=== PATIENT | female | born 1935 | race Caucasian/White ===

== ENCOUNTER → 2017-06-26 | Outpatient (CLI) | payer MEDICARE, BC ==
[2014-05-03 22:39] VITALS: BP 135/64
[~2017-06-26] MED LIST: ALPR0.254 PO; ASPI-630 PO; ASPI81TA50 PO; ATEN50TA PO; CEPH-264 PO; CIPR250T30 PO; DIPH25CA58 PO; HYDR-2758 PO; IBUP200C6 PO; LORA10TA55 PO; MULT1TAB52 PO; POTA20TA82 PO; VENL75TA PO; WARF1TAB74 PO
--- NOTE | 2017-06-27 07:34 | RAD ---
EXAM: Left lower extremity venous Doppler. HISTORY: Left lower extremity pain/swelling. Superficial thrombophlebitis. COMPARISON: None. FINDINGS: Grayscale and Doppler analysis of the left lower extremity deep venous system was performed with graded compression and augmentation. The common femoral, greater saphenous, superficial femoral, popliteal and calf veins were assessed. There is no evidence of deep venous thrombosis. There is superficial venous thrombosis within greater saphenous vein radicles within the distal thigh through the distal calf. IMPRESSION: 1. Superficial venous thrombus within greater saphenous vein radicals within the distal thigh through the distal calf. No evidence of deep venous thrombosis.
== END | disposition home or self-care (01) ==
LOC: US 16:50
PROVIDERS: ATTEND Family Medicine
DX: I80.232 Phlebitis and thrombophlebitis of left tibial vein (principal); F17.200 Nicotine dependence, unspecified, uncomplicated
CPT/HCPCS: 93971

== ENCOUNTER 2017-06-27 16:42 | Inpatient (IN) | payer MEDICARE, BC ==
[~2017-06-27] VITALS: Ht 147.3 cm; Wt 68.9 kg
[~2017-06-27 16:42] MED LIST changes: -ASPI81TA50 PO; -ATEN50TA PO; -CEPH-264 PO; -HYDR-2758 PO; -IBUP200C6 PO; -MULT1TAB52 PO
[2017-06-27 17:18] VITALS: BP 133/82
[2017-06-27] MEDS ORDERED: HYDROcodone/APAP 5/325MG 1 TAB TABLET PO PRN ×2 (17:30)
[2017-06-27] MEDS ORDERED: HEPARIN for IV BOLUS 10,000 UNIT/10 ML VIAL. IV PRN ×2 (17:30)
[2017-06-27] MEDS ORDERED: KETOROLAC 30 MG/ML VIAL. IV PRN (17:30)
[2017-06-27] MEDS ORDERED: HEPARIN for IV BOLUS 10,000 UNIT/10 ML VIAL. IV ONE (18:00)
[2017-06-27] MEDS ORDERED: ATEN50TA PO (18:08)
[2017-06-27] MEDS ORDERED: IBUP200C6 PO (18:08)
[2017-06-27] MEDS ORDERED: ZOLPIDEM 5 MG TABLET. PO PRN (18:45)
[2017-06-27 18:53] LABS: BASO % 1 % (0-3); EOS # 0.1 x10^3/uL (0.0-0.7); EOS % 2 % (0-3); HEMATOCRIT 35.5 % (36.0-47.0); HEMOGLOBIN 12.1 g/dL (12.0-15.5); LYMPH # 1.9 x10^3/uL (1.0-4.8); LYMPH % 30 % (24-48); MEAN CORPUSCULAR HEMOGLOBIN 31 pg (25-35); MEAN CORPUSCULAR HGB CONC 34 g/dL (31-37); MEAN CORPUSCULAR VOLUME 91 fL (79-100); MONO # 0.6 x10^3/uL (0.0-1.1); MONO % 11 % (0-9); NEUT # 3.5 x10^3uL (1.8-7.7); NEUT % 57 % (31-73); PLATELET COUNT 228 x10^3/uL (140-400); RED BLOOD COUNT 3.89 x10^6/uL (3.50-5.40); RED CELL DISTRIBUTION WIDTH 12.4 % (11.5-14.5); WHITE BLOOD COUNT 6.1 x10^3/uL (4.0-11.0)
[2017-06-27 19:11] LABS: ALBUMIN 3.6 g/dL (3.4-5.0); CALCIUM 9.2 mg/dL (8.5-10.1); CREATININE 0.9 mg/dL (0.6-1.0); GFR 59.8; POTASSIUM 4.3 mmol/L (3.5-5.1); TOTAL BILIRUBIN 0.3 mg/dL (0.2-1.0); TOTAL PROTEIN 7.3 g/dL (6.4-8.2)
[2017-06-27] MEDS ORDERED: VANCOMYCIN 1.75 GM in IV NORMAL SALINE 500ML 500 ML IV ONE (20:00)
[2017-06-27] MEDS: HEPARIN 25,000UTS/500ML PREMIX 500 ML IV PRN (20:30)
[2017-06-27] MEDS: VANCOMYCIN PER PHARMACY MC PRN (20:48)
[2017-06-27] MEDS: LACTOBACILLUS RHAMNOSUS GG 1 CAPSULE. PO SCH (20:55)
[2017-06-27 23:07] VITALS: BP 103/70
[2017-06-28 03:03] LABS: ALBUMIN 3.3 g/dL (3.4-5.0); ALBUMIN/GLOBULIN RATIO 0.9 (1.0-1.7); CALCIUM 8.6 mg/dL (8.5-10.1); CREATININE 1.1 mg/dL (0.6-1.0); GFR 47.4; MAGNESIUM 1.8 mg/dL (1.8-2.4); POTASSIUM 4.1 mmol/L (3.5-5.1); TOTAL BILIRUBIN 0.3 mg/dL (0.2-1.0)
[2017-06-28 05:08] VITALS: BP 142/74
[2017-06-28] MEDS ORDERED: MULT1TAB52 PO (08:41)
[2017-06-28] MEDS ORDERED: ASPI81TA50 PO (08:41)
[2017-06-28] MEDS: HEPARIN 25,000UTS/500ML PREMIX 500 ML IV PRN ×2 (08:55→19:52)
[2017-06-28] MEDS: LACTOBACILLUS RHAMNOSUS GG 1 CAPSULE. PO SCH ×2 (09:26→19:47)
[2017-06-28 09:44] LABS: BILIRUBIN,URINE NEG (NEG); CLARITY,URINE CLEAR; COLOR,URINE STRAW; GLUCOSE,URINE NEG (NEG)
[2017-06-28 09:45] LABS: BACTERIA,URINE 0 /HPF (0-FEW); NITRITE,URINE NEG (NEG); RBC,URINE 0 /HPF (0-2); UROBILINOGEN,URINE 0.2 mg/dL (0.2 mg/dL)
[2017-06-28] MEDS ORDERED: ALPRAZolam 0.25 MG TABLET PO PRN (10:15)
[2017-06-28] MEDS: MULTIVITAMIN with MINERAL TABLET. PO SCH (10:52)
[2017-06-28] MEDS: CETIRIZINE HCL 10 MG TABLET PO SCH (10:52)
[2017-06-28] MEDS: POTASSIUM CHLORIDE 20 MEQ TABLET.ER. PO SCH (10:52)
[2017-06-28] MEDS: VENLAFAXINE 75 MG TABLET. PO SCH (10:52)
[2017-06-28] MEDS: ATENOLOL 50 MG TABLET PO SCH (10:53)
[2017-06-28 11:10] VITALS: BP 122/67
[2017-06-28 16:07] VITALS: BP 141/89
[2017-06-28 19:27] VITALS: BP 120/64
[2017-06-28] MEDS: VANCOMYCIN 1 GM in IV NORMAL SALINE 250ML 250 ML IV SCH (19:47)
[2017-06-28 23:15] VITALS: BP 121/80
--- NOTE | 2017-06-29 03:01 | PN ---
DATE: SUBJECTIVE: The patient is resting fairly comfortably. She has a severe thrombophlebitis, cellulitis to the left lower leg. She continues to be monitored carefully. She is on heparin and she continues with IV vancomycin. PHYSICAL EXAMINATION: VITAL SIGNS: Otherwise, the patient is afebrile. Patient's blood pressure 120/80, respiration 16, pulse 75, afebrile. LUNGS: Diminished throughout, but clear. CARDIOVASCULAR: Stable. EXTREMITIES: Left lower leg less inflamed, markedly improved, still hard enough extending from the lower leg up into the upper thigh area. IMPRESSION: Cellulitis to the lower leg as well as thrombophlebitis. MARTINE WOODSON MD DR: ANNIKA/rachel JOB#: [id number] / [id number]
[2017-06-29 06:03] VITALS: BP 156/60
[2017-06-29 06:34] LABS: ALBUMIN/GLOBULIN RATIO 0.8 (1.0-1.7); CALCIUM 8.7 mg/dL (8.5-10.1); CREATININE 0.9 mg/dL (0.6-1.0); GFR 59.8; POTASSIUM 4.1 mmol/L (3.5-5.1); TOTAL BILIRUBIN 0.3 mg/dL (0.2-1.0); TOTAL PROTEIN 6.7 g/dL (6.4-8.2)
[2017-06-29] MEDS: CETIRIZINE HCL 10 MG TABLET PO SCH (09:06)
[2017-06-29] MEDS: ATENOLOL 50 MG TABLET PO SCH (09:07)
[2017-06-29] MEDS: MULTIVITAMIN with MINERAL TABLET. PO SCH (09:07)
[2017-06-29] MEDS: VENLAFAXINE 75 MG TABLET. PO SCH (09:07)
[2017-06-29] MEDS: POTASSIUM CHLORIDE 20 MEQ TABLET.ER. PO SCH (09:07)
[2017-06-29] MEDS: LACTOBACILLUS RHAMNOSUS GG 1 CAPSULE. PO SCH ×2 (09:08→20:02)
[2017-06-29 11:21] VITALS: BP 125/80
[2017-06-29] MEDS ORDERED: RIVAROXABAN 10 MG TABLET. PO ONE (17:00)
[2017-06-29 17:36] VITALS: BP 129/78
[2017-06-29 19:45] VITALS: BP 128/75
[2017-06-29 19:47] LABS: VANC TR 8.4 mcg/mL (10.0-20.0)
[2017-06-29] MEDS: VANCOMYCIN 1 GM in IV NORMAL SALINE 250ML 250 ML IV SCH (20:02)
--- NOTE | 2017-06-29 20:22 | PN ---
DATE: 06/29/2017 SUBJECTIVE: Cellulitis of the left lower leg as well as severe thrombophlebitis radiating from the lower leg all the way up into the thigh. The patient is resting fairly comfortably, still complaining of severe pain in that leg. We will go ahead and shift her over to oral Xarelto and make further evaluation on her as indicated on that. PHYSICAL EXAMINATION: VITAL SIGNS: Blood pressure 125/80, respiratory rate 20, pulse 76, afebrile. LUNGS: Diminished throughout, poor movement of air. CARDIOVASCULAR: Regular sinus rhythm. ABDOMEN: Soft, nontender. EXTREMITIES: No clubbing, cyanosis or edema except for the left leg swollen, tender, inflamed and irritated. IMPRESSION: Cellulitis to the left lower leg as well as severe thrombophlebitis of that leg as well. Continue with anticoagulation and make further evaluation on her as indicated. MARTINE WOODSON MD DR: ANNIKA/rachel JOB#: [id number] / [id number]
[2017-06-29] MEDS ORDERED: RIVAROXABAN 10 MG TABLET. PO SCH (21:00)
[2017-06-29 22:48] VITALS: BP 135/86
[2017-06-30 05:14] VITALS: BP 126/72
[2017-06-30 06:04] LABS: BASO % 0 % (0-3); EOS # 0.2 x10^3/uL (0.0-0.7); EOS % 3 % (0-3); HEMATOCRIT 34.5 % (36.0-47.0); HEMOGLOBIN 11.7 g/dL (12.0-15.5); LYMPH # 1.8 x10^3/uL (1.0-4.8); LYMPH % 32 % (24-48); MEAN CORPUSCULAR HEMOGLOBIN 31 pg (25-35); MEAN CORPUSCULAR HGB CONC 34 g/dL (31-37); MEAN CORPUSCULAR VOLUME 92 fL (79-100); MONO # 0.7 x10^3/uL (0.0-1.1); MONO % 12 % (0-9); NEUT # 2.9 x10^3uL (1.8-7.7); NEUT % 53 % (31-73); PLATELET COUNT 198 x10^3/uL (140-400); RED BLOOD COUNT 3.74 x10^6/uL (3.50-5.40); RED CELL DISTRIBUTION WIDTH 12.5 % (11.5-14.5); WHITE BLOOD COUNT 5.5 x10^3/uL (4.0-11.0)
[2017-06-30 06:21] LABS: ALBUMIN 3.2 g/dL (3.4-5.0); ALBUMIN/GLOBULIN RATIO 0.9 (1.0-1.7); CALCIUM 8.9 mg/dL (8.5-10.1); CREATININE 0.9 mg/dL (0.6-1.0); GFR 59.8; MAGNESIUM 1.9 mg/dL (1.8-2.4); POTASSIUM 4.3 mmol/L (3.5-5.1); TOTAL BILIRUBIN 0.2 mg/dL (0.2-1.0); TOTAL PROTEIN 6.9 g/dL (6.4-8.2)
[2017-06-30] MEDS: VANCOMYCIN PER PHARMACY MC PRN (07:43)
[2017-06-30] MEDS ORDERED: VANCOMYCIN 1 GM in IV NORMAL SALINE 250ML 250 ML IV SCH (08:00)
[2017-06-30] MEDS: LACTOBACILLUS RHAMNOSUS GG 1 CAPSULE. PO SCH (08:42)
[2017-06-30] MEDS: MULTIVITAMIN with MINERAL TABLET. PO SCH (08:42)
[2017-06-30 08:43] VITALS: BP 126/72
[2017-06-30] MEDS: VENLAFAXINE 75 MG TABLET. PO SCH (08:43)
[2017-06-30] MEDS: ATENOLOL 50 MG TABLET PO SCH (08:43)
[2017-06-30] MEDS: CETIRIZINE HCL 10 MG TABLET PO SCH (08:43)
[2017-06-30] MEDS: POTASSIUM CHLORIDE 20 MEQ TABLET.ER. PO SCH (08:43)
[2017-06-30] MEDS ORDERED: RIVAROXABAN 10 MG TABLET. PO SCH (09:00)
[2017-06-30] MEDS ORDERED: HYDR-2758 PO (10:23)
[2017-06-30] MEDS ORDERED: CEPH-264 PO (10:31)
--- NOTE | 2017-06-30 18:56 | DS ---
DATE OF DISCHARGE: 06/30/2017 HOSPITAL COURSE: The patient has cellulitis of the left lower leg as well as a very extensive thrombophlebitis extending from below the left knee all the way up into the thigh area, very painful. She was started initially on IV heparin to calm down the inflammation there and switched over to Xarelto. In any case, the patient made good progress during the rest of her hospitalization. The patient's labs were pretty much unremarkable except for slightly elevated sugars and mild protein malnutrition. In any case, the patient made good progress during the rest of her hospitalization and was discharged home. She had been on vancomycin, heparin and then changed over to oral anticoagulants. IMPRESSION: Therefore, cellulitis left lower leg, severe thrombophlebitis of the left leg, anemia of chronic disease, hyperglycemia. PLAN: Regular diet, decreased activity and followup in 7-10 days or sooner as needed. MARTINE WOODSON MD DR: ANNIKA/rachel JOB#: [id number] / [id number]
== END 2017-06-30 12:25 | disposition home health service (06) | DRG 294 ==
LOC: 1 SOUTH 16:42
PROVIDERS: ADMIT Family Medicine; ATTEND Family Medicine
DX: I80.3 Phlebitis and thrombophlebitis of lower extremities, unspecified (principal); L03.116 Cellulitis of left lower limb; D63.8 Anemia in other chronic diseases classified elsewhere; E44.1 Mild protein-calorie malnutrition; R73.9 Hyperglycemia, unspecified; Z68.31 Body mass index [BMI] 31.0-31.9, adult; Z88.2 Allergy status to sulfonamides; Z88.8 Allergy status to other drugs, medicaments and biological substances
CPT/HCPCS: 36415; 80053; 80202; 81001; 83605; 83735; 85025; 85730; 87040; 87086; 93971; J1644; J3370; J7040; J7050

== ENCOUNTER 2018-07-06 16:11 | Inpatient (IN) | payer MEDICARE ==
[~2018-07-06] VITALS: Ht 152.4 cm; Wt 68.6 kg
[~2018-07-06 16:11] MED LIST changes: +ASPI81TA50 PO; +ATEN50TA PO; +CEPH-264 PO; +HYDR-2155 PO; +IBUP-1390 PO; +MULT1TAB52 PO
[2018-07-06 17:57] VITALS: BP 99/62
[2018-07-06 19:01] VITALS: BP 121/62
[2018-07-06] MEDS ORDERED: VENL75TA PO (19:04)
[2018-07-06 20:57] LABS: BASO % 0 % (0-3); EOS # 0.2 x10^3/uL (0.0-0.7); EOS % 3 % (0-3); HEMATOCRIT 36.3 % (36.0-47.0); HEMOGLOBIN 12.2 g/dL (12.0-15.5); LYMPH # 1.8 x10^3/uL (1.0-4.8); LYMPH % 25 % (24-48); MEAN CORPUSCULAR HEMOGLOBIN 31 pg (25-35); MEAN CORPUSCULAR HGB CONC 34 g/dL (31-37); MEAN CORPUSCULAR VOLUME 91 fL (79-100); MONO # 0.6 x10^3/uL (0.0-1.1); MONO % 9 % (0-9); NEUT # 4.4 x10^3uL (1.8-7.7); NEUT % 63 % (31-73); PLATELET COUNT 252 x10^3/uL (140-400); RED BLOOD COUNT 3.97 x10^6/uL (3.50-5.40); RED CELL DISTRIBUTION WIDTH 12.6 % (11.5-14.5)
[2018-07-06] MEDS ORDERED: VANCOMYCIN 1.75 GM in IV NORMAL SALINE 500ML 500 ML IV ONE (21:00)
[2018-07-06 21:33] LABS: ALBUMIN 3.4 g/dL (3.4-5.0); ALBUMIN/GLOBULIN RATIO 0.9 (1.0-1.7); CREATININE 1.2 mg/dL (0.6-1.0); GFR 42.8; POTASSIUM 3.4 mmol/L (3.5-5.1); TOTAL BILIRUBIN 0.3 mg/dL (0.2-1.0); TOTAL PROTEIN 7.4 g/dL (6.4-8.2)
[2018-07-06] MEDS ORDERED: ATEN50TA PO (21:48)
[2018-07-06] MEDS ORDERED: LORA10TA3 (21:48)
[2018-07-06 22:22] LABS: BACTERIA,URINE MOD /HPF (0-FEW); BILIRUBIN,URINE NEG (NEG); CLARITY,URINE TURBID; COLOR,URINE YELLOW; GLUCOSE,URINE NEG (NEG); HYALINE CASTS, URINE OCC /HPF; NITRITE,URINE POS (NEG); SQUAMOUS EPITHELIAL CELL,UR OCC /LPF; UROBILINOGEN,URINE 0.2 mg/dL (0.2 mg/dL); WBC,URINE TNTC /HPF (0-4)
[2018-07-06] MEDS: VANCOMYCIN PER PHARMACY MC PRN (22:39)
[2018-07-06] MEDS: ACETAMINOPHEN 325 MG TABLET PO PRN (22:44)
[2018-07-06 23:04] VITALS: BP 114/69
[2018-07-06] MEDS ORDERED: diphenhydrAMINE/ZINC 2%/0.1% 28GM TUBE. TP PRN (23:30)
[2018-07-07] MEDS ORDERED: RIVA15TA PO (03:03)
[2018-07-07] MEDS: ACETAMINOPHEN 325 MG TABLET PO PRN (04:46)
[2018-07-07 05:33] VITALS: BP 99/58
[2018-07-07 06:38] LABS: BASO % 0 % (0-3); EOS # 0.2 x10^3/uL (0.0-0.7); EOS % 3 % (0-3); HEMATOCRIT 35.4 % (36.0-47.0); LYMPH % 15 % (24-48); MEAN CORPUSCULAR HEMOGLOBIN 31 pg (25-35); MEAN CORPUSCULAR HGB CONC 34 g/dL (31-37); MEAN CORPUSCULAR VOLUME 91 fL (79-100); MONO # 0.6 x10^3/uL (0.0-1.1); MONO % 8 % (0-9); NEUT # 5.1 x10^3uL (1.8-7.7); NEUT % 74 % (31-73); PLATELET COUNT 222 x10^3/uL (140-400); RED BLOOD COUNT 3.89 x10^6/uL (3.50-5.40); RED CELL DISTRIBUTION WIDTH 12.7 % (11.5-14.5); WHITE BLOOD COUNT 6.9 x10^3/uL (4.0-11.0)
[2018-07-07 06:49] LABS: CALCIUM 8.9 mg/dL (8.5-10.1); CREATININE 1.1 mg/dL (0.6-1.0); GFR 47.3; POTASSIUM 3.6 mmol/L (3.5-5.1)
[2018-07-07] MEDS: VENLAFAXINE 75 MG TABLET. PO SCH (08:26)
[2018-07-07] MEDS: CETIRIZINE HCL 10 MG TABLET PO SCH (08:27)
[2018-07-07] MEDS: LACTOBACILLUS RHAMNOSUS GG 1 CAPSULE. PO SCH ×2 (08:27→19:57)
[2018-07-07] MEDS: ATENOLOL 50 MG TABLET PO SCH (08:28)
[2018-07-07 11:07] VITALS: BP 119/76
[2018-07-07] MEDS: CLOBETASOL EMOLLIENT 0.05% TOPICAL CREAM 15GM TUBE. TP SCH ×2 (11:08→19:57)
[2018-07-07 15:35] VITALS: BP 112/66
[2018-07-07 19:29] VITALS: BP 123/51
[2018-07-07] MEDS: VANCOMYCIN 1 GM in IV NORMAL SALINE 250ML 250 ML IV SCH (19:55)
[2018-07-07 22:17] VITALS: BP 130/74
[2018-07-08 05:45] VITALS: BP 117/54
[2018-07-08] MEDS: VENLAFAXINE 75 MG TABLET. PO SCH (08:24)
[2018-07-08] MEDS: CLOBETASOL EMOLLIENT 0.05% TOPICAL CREAM 15GM TUBE. TP SCH ×2 (08:25→21:00)
[2018-07-08] MEDS: CETIRIZINE HCL 10 MG TABLET PO SCH (08:25)
[2018-07-08] MEDS: LACTOBACILLUS RHAMNOSUS GG 1 CAPSULE. PO SCH ×2 (08:25→21:00)
[2018-07-08] MEDS: ATENOLOL 50 MG TABLET PO SCH (08:25)
[2018-07-08 11:20] VITALS: BP 111/76
[2018-07-08 15:31] VITALS: BP 112/58
[2018-07-08] MEDS: KETOROLAC 15 MG/ML VIAL. IV PRN ×2 (17:30→23:53)
[2018-07-08 18:57] VITALS: BP 116/74
[2018-07-08 20:56] LABS: VANC TR 8.7 mcg/mL (10.0-20.0)
[2018-07-08] MEDS: VANCOMYCIN 1 GM in IV NORMAL SALINE 250ML 250 ML IV SCH (21:30)
[2018-07-08 22:48] VITALS: BP 146/74
[2018-07-09 05:10] VITALS: BP 140/76
[2018-07-09] MEDS: LACTOBACILLUS RHAMNOSUS GG 1 CAPSULE. PO SCH (08:18)
[2018-07-09] MEDS: VENLAFAXINE 75 MG TABLET. PO SCH (08:18)
[2018-07-09] MEDS: CETIRIZINE HCL 10 MG TABLET PO SCH (08:18)
[2018-07-09] MEDS: ATENOLOL 50 MG TABLET PO SCH (08:19)
[2018-07-09] MEDS: CLOBETASOL EMOLLIENT 0.05% TOPICAL CREAM 15GM TUBE. TP SCH (08:49)
--- NOTE | 2018-07-09 09:42 | RAD ---
EXAM: CHEST 1 VIEW History: Chest congestion COMPARISON: 10/17/2013 TECHNIQUE: Single portable radiograph of the chest FINDINGS: The cardiac silhouette is unremarkable. Mild prominent bilateral interstitial lung markings likely chronic interstitial changes The costophrenic sulci are clear and well demarcated. IMPRESSION: No radiographic evidence of an acute cardiopulmonary process. Electronically signed by: Eduardo Lilly MD (07/09/2018 9:39 AM) [id number]
[2018-07-09] MEDS ORDERED: levoFLOXacin 500 MG TABLET PO ONE (09:45)
[2018-07-09 10:42] VITALS: BP 107/63
[2018-07-09] MEDS ORDERED: IPRATRPIUM/ALBUTEROL 0.5/2.5MG 3 ML NEBU. NEB SCH (12:00)
[2018-07-09] MEDS ORDERED: LEVO500T59 PO (12:13)
[2018-07-09] MEDS: VANCOMYCIN PER PHARMACY MC PRN (12:47)
[2018-07-09] MEDS ORDERED: VANCOMYCIN 1.25 GM in IV NORMAL SALINE 250ML 250 ML IV SCH (18:00)
--- NOTE | 2018-07-16 22:46 | DS ---
DATE OF DISCHARGE: 07/09/2018 HOSPITAL COURSE: The patient is an 82-year-old female who came in with cellulitis to her legs. The patient has been tried to be treated as an outpatient. However, it became progressively worse and more painful to her legs. As a result of this, the patient was admitted to the hospital for further evaluation and treatment. She received IV vancomycin, made good progress. She received PT, OT, and kept legs elevated and as a result of that, the patient made good progress. She demanded to be discharged home. Her white count initially went down as low as 2000. I think showing the degree of infection and cellulitis and she did have 13 bands, but that may have been related to the use of some steroids. In any case, the patient made excellent progress during the rest of her hospitalization and she was discharged home for followup as an outpatient. See MRAD. Should be on a heart healthy diet, decreased activity. She will continue antibiotics as an outpatient and have home health follow her. IMPRESSION AND PLAN: Bilateral cellulitis of the legs, stasis dermatitis, varicose veins. The patient will be discharged home and followed up as an outpatient. She will be on a heart healthy diet, decreased activity. Continue antibiotics as an outpatient. MARTINE WOODSON MD DR: ANNIKA/rachel JOB#: [id number] / [id number]
== END 2018-07-09 13:00 | disposition home health service (06) | DRG 603 ==
LOC: 1 SOUTH 17:30
PROVIDERS: ADMIT Family Medicine; ATTEND Family Medicine
DX: L03.116 Cellulitis of left lower limb (principal); I10 Essential (primary) hypertension; E78.5 Hyperlipidemia, unspecified; J45.909 Unspecified asthma, uncomplicated; F41.9 Anxiety disorder, unspecified; Z82.49 Family history of ischemic heart disease and other diseases of the circulatory system; Z90.49 Acquired absence of other specified parts of digestive tract; Z88.2 Allergy status to sulfonamides; Z88.8 Allergy status to other drugs, medicaments and biological substances; L29.9 Pruritus, unspecified; I87.2 Venous insufficiency (chronic) (peripheral); L03.115 Cellulitis of right lower limb; I83.90 Asymptomatic varicose veins of unspecified lower extremity
CPT/HCPCS: 36415; 71045; 80048; 80053; 80202; 81001; 83605; 85025; 87040; 87086; 87186; 90471; 90756; 94640; J1885; J3370; J7040; J7050; J7620; Q2035

== ENCOUNTER 2018-07-10 17:22 | Inpatient (IN) | payer MEDICARE ==
[~2018-07-10] VITALS: Ht 144.8 cm; Wt 68.7 kg
[~2018-07-10 17:22] MED LIST changes: +LEVO500T59 PO; +LORA10TA3; +RIVA15TA PO
--- NOTE | 2018-07-10 17:40 | PHYS DOC ---
Past History Past Medical History: COPD (MARIELENA DELATORRE DO) Past Surgical History: No Surgical History (MARIELENA DELATORRE DO) Smoking: Non-smoker Alcohol Use: None Drug Use: None (MARIELENA DELATORRE DO) Adult General Chief Complaint Chief Complaint: SHORTNESS OF BREATH [facility] HPI 82-year-old female presents via EMS with cough and shortness of breath. Patient was recently treated at this hospital for lower leg cellulitis. She is still on oral antibiotics. She developed an upper history infection before she was discharged. Today at home, her breathing became more difficult. She started having more coughing and felt short of breath. The patient does not have an official diagnosis of COPD. She is it not usually on oxygen at home. When EMS arrived they found her O2 to be 88-89. She improved to 96% on 2 L. She has not had a fever at home. She does have a history of bronchitis and pneumonia in the past. (MARIELENA DELATORRE DO) Review of Systems Review of Systems Constitutional: Denies fever or chills [] Eyes: Denies change in visual acuity, redness, or eye pain [] HENT: Sore throat [] Respiratory: Cough with shortness of breath [] Cardiovascular: No additional information not addressed in HPI [] GI: Denies abdominal pain, nausea, vomiting, bloody stools or diarrhea [] : Denies dysuria or hematuria [] Musculoskeletal: Denies back pain or joint pain [] Integument: Denies rash or skin lesions [] Neurologic: Denies headache, focal weakness or sensory changes [] Endocrine: Denies polyuria or polydipsia [] All other systems were reviewed and found to be within normal limits, except as documented in this note. (MARIELENA DELATORRE DO) Allergies Allergies Allergies Coded Allergies Type Severity Reaction Last Updated Verified Sulfa (Sulfonamide Antibiotics) Allergy Intermediate Hives 10/17/13 Yes promethazine Allergy Intermediate Hives 10/17/13 Yes (MARIELENA DELATORRE DO) Physical Exam Physical Exam Constitutional: Well developed, well nourished, no acute distress, non-toxic appearance. [] HENT: Normocephalic, atraumatic, bilateral external ears normal, oropharynx moist, no oral exudates, nose normal. [] Eyes: PERRLA, EOMI, conjunctiva normal, no discharge. [] Neck: Normal range of motion, no tenderness, supple, no stridor. [] Cardiovascular:Heart rate regular rhythm, no murmur [] Lungs & Thorax: Bilateral breath sounds coarse with wheezing at the bases[] Abdomen: Bowel sounds normal, soft, no tenderness, no masses, no pulsatile masses. [] Skin: Warm, erythematous left lower leg.[] Back: No tenderness, no CVA tenderness. [] Extremities: No tenderness, no cyanosis, no clubbing, ROM intact, no edema. [] Neurologic: Alert and oriented X 3, normal motor function, normal sensory function, no focal deficits noted. [] Psychologic: Affect normal, judgement normal, mood normal. [] (MARIELENA DELATORRE DO) Current Patient Data Vital Signs Vital Signs Date Time Temp Pulse Resp B/P (MAP) Pulse Ox O2 Delivery O2 Flow Rate FiO2 07/10/18 17:33 98.5 79 18 96 Room Air (MARIELENA DELATORRE DO) EKG EKG [] (MARIELENA DELATORRE DO) Radiology/Procedures Radiology/Procedures [] (MARIELENA DELATORRE DO) Impressions: infiltrate at left base (ERMA PUENTES MD) Course & Med Decision Making Course & Med Decision Making Pertinent Labs and Imaging studies reviewed. (See chart for details) The patient's workup is pending. I am signing her out to Dr. Borrero at 1800. [] (MARIELENA DELATRORE DO) Course & Med Decision Making DX : copd exacerbation pneumonia (ERMA PUENTES MD) Dragon Disclaimer Dragon Disclaimer This electronic medical record was generated, in whole or in part, using a voice recognition dictation system. (MARIELENA DELATORRE DO) Departure Departure: Referrals: MARTINE WOODSON MD (PCP) MARIELENA DELATORRE DO Jul 10, 2018 17:40 ERMA PUENTES MD Jul 10, 2018 18:40
[2018-07-10] MEDS ORDERED: IPRATRPIUM/ALBUTEROL 0.5/2.5MG 3 ML NEBU. NEB ONE (17:45)
[2018-07-10 18:18] LABS: BASO % 0 % (0-3); EOS % 1 % (0-3); HEMATOCRIT 36.2 % (36.0-47.0); LYMPH # 0.7 x10^3/uL (1.0-4.8); LYMPH % 21 % (24-48); MEAN CORPUSCULAR HEMOGLOBIN 31 pg (25-35); MEAN CORPUSCULAR HGB CONC 33 g/dL (31-37); MEAN CORPUSCULAR VOLUME 92 fL (79-100); MONO # 0.4 x10^3/uL (0.0-1.1); MONO % 11 % (0-9); NEUT # 2.2 x10^3uL (1.8-7.7); NEUT % 67 % (31-73); PLATELET COUNT 191 x10^3/uL (140-400); RED BLOOD COUNT 3.93 x10^6/uL (3.50-5.40); RED CELL DISTRIBUTION WIDTH 12.8 % (11.5-14.5); WHITE BLOOD COUNT 3.3 x10^3/uL (4.0-11.0)
[2018-07-10 18:33] LABS: ALBUMIN 3.2 g/dL (3.4-5.0); ALBUMIN/GLOBULIN RATIO 0.7 (1.0-1.7); GFR 52.8; POTASSIUM 3.9 mmol/L (3.5-5.1); TOTAL BILIRUBIN 0.3 mg/dL (0.2-1.0); TOTAL PROTEIN 7.5 g/dL (6.4-8.2)
[2018-07-10] MEDS ORDERED: IV NORMAL SALINE 1,000ML 1,000 ML IV SCH (18:35)
[2018-07-10] MEDS ORDERED: ONDANSETRON PF 4 MG/2 ML VIAL. IV PRN (18:45)
[2018-07-10] MEDS ORDERED: methylPREDNISolone SOD SUCC PF 125 MG/2 ML VIAL. IV ONE (18:45)
[2018-07-10] MEDS ORDERED: ALBUTEROL SULFATE 2.5 MG/3 ML NEBU. NEB ONE (18:45)
[2018-07-10] MEDS ORDERED: ACETAMINOPHEN 325 MG TABLET PO PRN (18:45)
--- NOTE | 2018-07-10 19:14 | RAD ---
CHEST AP ONLY History: SHORT OF BREATH Comparison: July 09, 2018 Findings: Single view of the chest is submitted. There is no infiltrate, pneumothorax, or effusion. The pericardial cardiac silhouette is within normal limits in size. There is likely emphysema. Impression: 1. There is likely emphysema, no significant infiltrate identified. Electronically signed by: Josh Nieves MD (07/10/2018 7:11 PM) [facility]
--- NOTE | 2018-07-10 19:30 | NUR ---
Pt admitted to [facility] room 109 from ER via [facility], accompanied by EMS, nursing staff and daughter. Pt transferred from [facility] to bed x3 assist. Admission assessment completed. Pt was just recently here for left leg cellulitis, discharged on 07/09 on PO Levaquin. Left lower leg is still red and peeling but not draining/weeping like it had been perviously. Photos taken per [facility] protocol and placed in paper chart. PT/OT and CM consulted. VSS. Health history and home medications reviewed with pt. Pt lives home alone. Xarelto for VTE. Pt UTD on Flu vaccine. POC reviewed with pt, understanding verbalized. Pt given box lunch for HS meal. Call light within reach.
[2018-07-10 19:56] VITALS: BP 137/90
[2018-07-10] MEDS: IPRATRPIUM/ALBUTEROL 0.5/2.5MG 3 ML NEBU. NEB SCH (21:23)
[2018-07-11] MEDS: methylPREDNISolone SOD SUCC PF 125 MG/2 ML VIAL. IV SCH ×2 (00:08→05:41)
[2018-07-11 00:20] VITALS: BP 110/64
[2018-07-11] MEDS: IPRATRPIUM/ALBUTEROL 0.5/2.5MG 3 ML NEBU. NEB SCH ×4 (05:02→20:33)
[2018-07-11 05:20] VITALS: BP 126/76
[2018-07-11 05:57] LABS: BASO % 0 % (0-3); EOS % 0 % (0-3); HEMATOCRIT 34.3 % (36.0-47.0); HEMOGLOBIN 11.5 g/dL (12.0-15.5); LYMPH # 0.6 x10^3/uL (1.0-4.8); LYMPH % 29 % (24-48); MEAN CORPUSCULAR HEMOGLOBIN 31 pg (25-35); MEAN CORPUSCULAR HGB CONC 33 g/dL (31-37); MEAN CORPUSCULAR VOLUME 92 fL (79-100); MONO # 0.1 x10^3/uL (0.0-1.1); MONO % 4 % (0-9); NEUT # 1.3 x10^3uL (1.8-7.7); NEUT % 68 % (31-73); PLATELET COUNT 164 x10^3/uL (140-400); RED BLOOD COUNT 3.72 x10^6/uL (3.50-5.40); RED CELL DISTRIBUTION WIDTH 12.6 % (11.5-14.5)
[2018-07-11 06:06] LABS: CALCIUM 8.8 mg/dL (8.5-10.1); GFR 52.8; POTASSIUM 3.8 mmol/L (3.5-5.1)
[2018-07-11 07:01] LABS: % BANDS 13 % (0-9); % BASOS 0 % (0-3); % EOS 0 % (0-5); % LYMPHS 24 % (24-48); % MONOS 2 % (0-10); % SEGS 61 % (35-66); PLT ESTIMATE ADEQUATE (ADEQUATE); TOXIC VACUOLATION PRESENT
[2018-07-11] MEDS: CETIRIZINE HCL 10 MG TABLET PO SCH (09:02)
[2018-07-11] MEDS: VENLAFAXINE 75 MG TABLET. PO SCH (09:02)
[2018-07-11] MEDS: ATENOLOL 50 MG TABLET PO SCH (09:02)
[2018-07-11] MEDS: PANTOPRAZOLE 40 MG TABLET. PO SCH (09:02)
[2018-07-11 11:11] VITALS: BP 126/84
[2018-07-11] MEDS: DOXYCYCLINE HYCLATE 100 MG TABLET PO SCH ×2 (12:07→20:36)
--- NOTE | 2018-07-11 14:20 | HP ---
ADMIT DATE: 07/10/2018 HISTORY OF PRESENT ILLNESS: The patient is an 82-year-old female who came in with acute exacerbation of COPD and acute respiratory failure. The patient was resting fairly comfortably, began to have increased shortness of breath, came in through the Emergency Room, found to have an oxygen saturation of about 88%. As a result of that, the patient was admitted through the Emergency Room for further evaluation and treatment of acute exacerbation of COPD. 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 Tetanus and Influenza and pneumococcal vaccinations are up-to-date. FAMILY HISTORY: Positive for kidney disease in the father as well as him having diabetes and heart disease. Mother had gallbladder problems as well as breast cancer. ALLERGIES: SULFUR AND PROMETHAZINE. CODE STATUS: The patient is a full code. SOCIAL HISTORY: The patient denies smoking, alcohol or drug use. Lives at home. REVIEW OF SYSTEMS: The patient denies headaches, vision change, blurred vision, double vision. Denies any melena, hematochezia, or hematemesis. Denies any problem with bowels or bladder. Legs are feeling somewhat better. Neurologically stable. PHYSICAL EXAMINATION: GENERAL: A pleasant white female in moderate amount of distress. VITAL SIGNS: Blood pressure 137/90, respiration 24, pulse 94, afebrile. The patient is 88% on room air. HEENT: The patient's head was atraumatic, normocephalic. Eyes: PERRLA without jaundice. Mouth and throat were normal. NECK: Supple, no JVD or thyromegaly. LUNGS: Diminished. Poor movement of air and expiratory and inspiratory wheezes with some use of accessory muscles. CARDIOVASCULAR: Regular sinus rhythm, S1, S2, without murmur, rub, thrill, or extra heart sound. ABDOMEN: Soft, nontender, no rebound or guarding, positive bowel sounds. No hepatosplenomegaly was noted. EXTREMITIES: No clubbing or cyanosis. Trace edema noted. Redness is markedly improved. IMPRESSION: Acute on top of chronic obstructive pulmonary disease with acute bronchitis. PLAN: The patient continued to be monitored carefully, make further evaluation on her as indicated and make further assessment per those results. Also, she is markedly leukopenic. She did have 13 bands noted. Blood sugar has gone up to 275. The patient will be adjusted on her medications and antibiotics. MARTINE WOODSON MD DR: ANNIKA/rachel JOB#: [id number] / [id number]
[2018-07-11] MEDS: methylPREDNISolone SOD SUCC PF 40 MG/ML VIAL. IV SCH ×2 (14:34→20:36)
[2018-07-11 16:16] VITALS: BP 119/62
[2018-07-11 19:10] VITALS: BP 104/54
[2018-07-11] MEDS: RIVAROXABAN 15 MG TABLET. PO SCH (20:36)
[2018-07-12] MEDS: IPRATRPIUM/ALBUTEROL 0.5/2.5MG 3 ML NEBU. NEB SCH ×4 (05:02→20:17)
[2018-07-12 05:05] VITALS: BP 137/84
[2018-07-12 06:36] LABS: BASO % 0 % (0-3); EOS % 0 % (0-3); HEMATOCRIT 35.9 % (36.0-47.0); HEMOGLOBIN 11.8 g/dL (12.0-15.5); LYMPH # 0.8 x10^3/uL (1.0-4.8); LYMPH % 10 % (24-48); MEAN CORPUSCULAR HEMOGLOBIN 30 pg (25-35); MEAN CORPUSCULAR HGB CONC 33 g/dL (31-37); MEAN CORPUSCULAR VOLUME 92 fL (79-100); MONO # 0.5 x10^3/uL (0.0-1.1); MONO % 5 % (0-9); NEUT # 7.3 x10^3uL (1.8-7.7); NEUT % 85 % (31-73); PLATELET COUNT 225 x10^3/uL (140-400); RED BLOOD COUNT 3.89 x10^6/uL (3.50-5.40); RED CELL DISTRIBUTION WIDTH 12.7 % (11.5-14.5); WHITE BLOOD COUNT 8.6 x10^3/uL (4.0-11.0)
[2018-07-12 06:42] LABS: CALCIUM 8.8 mg/dL (8.5-10.1); CREATININE 1.3 mg/dL (0.6-1.0); POTASSIUM 3.9 mmol/L (3.5-5.1)
[2018-07-12 07:15] LABS: % BANDS 15 % (0-9); % LYMPHS 12 % (24-48); % MONOS 3 % (0-10); % SEGS 70 % (35-66)
[2018-07-12 07:16] LABS: PLT ESTIMATE ADEQUATE (ADEQUATE); TOXIC GRANULATION PRESENT; TOXIC VACUOLATION PRESENT
[2018-07-12 07:17] LABS: POLYCHROMASIA SLIGHT
[2018-07-12] MEDS: PANTOPRAZOLE 40 MG TABLET. PO SCH (08:47)
[2018-07-12] MEDS: methylPREDNISolone SOD SUCC PF 40 MG/ML VIAL. IV SCH ×3 (08:47→20:32)
[2018-07-12] MEDS: LACTOBACILLUS RHAMNOSUS GG 1 CAPSULE. PO SCH ×2 (08:47→20:32)
[2018-07-12] MEDS: DOXYCYCLINE HYCLATE 100 MG TABLET PO SCH ×2 (08:47→20:32)
[2018-07-12] MEDS: CETIRIZINE HCL 10 MG TABLET PO SCH (08:48)
[2018-07-12] MEDS: ATENOLOL 50 MG TABLET PO SCH (08:48)
[2018-07-12] MEDS: VENLAFAXINE 75 MG TABLET. PO SCH (08:48)
--- NOTE | 2018-07-12 11:14 | PN ---
DATE: 07/12/2018 SUBJECTIVE: The patient with acute exacerbation of chronic obstructive pulmonary disease with acute bronchitis. The patient is resting fairly comfortably, little better, still having lower abdominal pain, probably from the coughing. The patient's white count has come back up to 8.6 with hemoglobin 11 and hematocrit 35. She is breathing somewhat better. Blood sugars are still elevated. Her lactic acid was 3.5 (NC), may start her on some IV antibiotic for that, although she does seem to be doing better overall. OBJECTIVE: VITAL SIGNS: Blood pressure 130/80, respiratory rate 20, pulse 70, afebrile. GENERAL: The patient is alert and oriented. LUNGS: Diminished throughout, poor movement of air, but some expiratory wheezes, but markedly improved. CARDIOVASCULAR: Regular sinus rhythm. ABDOMEN: Soft, diffuse tenderness. PLAN: We will get an abdominal series. IMPRESSION: Acute exacerbation of chronic obstructive pulmonary disease, with some acute bronchitis and abdominal pain, chronic kidney disease stage 3, type 2 diabetes. MARTINE WOODSON MD DR: ANNIKA/rachel JOB#: [id number] / [id number]
--- NOTE | 2018-07-12 13:17 | RAD ---
Examination: ACUTE ABDOMEN SERIES History: abd pain x 3 days Comparison/Correlation: 03/26/2016 CT abdomen and pelvis without contrast Findings: PA view of the chest was obtained. Supine and upright views of the abdomen were obtained. Heart size and pulmonary vasculature are normal. No infiltrate or pleural effusion. Fluid levels are present within nondistended bowel. No suspicious abdominal calcifications. Osteopenia noted. Hip joint space narrowing bilaterally is evident. Impression: No infiltrate. No obstruction. Fluid levels in nondistended bowel may represent gastroenteritis. Electronically signed by: Sam Chase MD (07/12/2018 1:14 PM) [facility]
[2018-07-12 14:04] LABS: BILIRUBIN,URINE NEG (NEG); CLARITY,URINE HAZY; COLOR,URINE YELLOW; GLUCOSE,URINE 500 mg/dL (NEG); NITRITE,URINE NEG (NEG); UROBILINOGEN,URINE 0.2 mg/dL (0.2 mg/dL)
[2018-07-12 14:05] LABS: BACTERIA,URINE FEW /HPF (0-FEW); HYALINE CASTS, URINE MANY /HPF; SQUAMOUS EPITHELIAL CELL,UR MOD /LPF
[2018-07-12 14:07] LABS: GRANULAR CASTS,URINE OCC /HPF
[2018-07-12 19:05] VITALS: BP 116/71
[2018-07-12] MEDS: RIVAROXABAN 15 MG TABLET. PO SCH (20:32)
[2018-07-13 05:45] VITALS: BP 125/69
[2018-07-13] MEDS: IPRATRPIUM/ALBUTEROL 0.5/2.5MG 3 ML NEBU. NEB SCH ×2 (05:47→09:09)
[2018-07-13] MEDS ORDERED: guaiFENesin/PS-EPHED 600/60MG 1 TAB TAB.ER.12H PO SCH (09:00)
[2018-07-13] MEDS: PANTOPRAZOLE 40 MG TABLET. PO SCH (09:13)
[2018-07-13] MEDS: LACTOBACILLUS RHAMNOSUS GG 1 CAPSULE. PO SCH (09:13)
[2018-07-13] MEDS: VENLAFAXINE 75 MG TABLET. PO SCH (09:14)
[2018-07-13] MEDS: CETIRIZINE HCL 10 MG TABLET PO SCH (09:14)
[2018-07-13] MEDS: DOXYCYCLINE HYCLATE 100 MG TABLET PO SCH (09:14)
[2018-07-13] MEDS: ATENOLOL 50 MG TABLET PO SCH (09:15)
[2018-07-13] MEDS: methylPREDNISolone SOD SUCC PF 40 MG/ML VIAL. IV SCH (09:15)
[2018-07-13 09:38] VITALS: BP 114/64
--- NOTE | 2018-07-13 10:50 | NUR ---
Pt complaining of lower abdominal pain when coughing and and getting up. Per Dr Anderson need to transfer patient to [facility], report called to Aliyah. Patients family aware, all belongings sent. EMS transported patient.
--- NOTE | 2018-07-13 13:26 | DS ---
DATE OF DISCHARGE: HOSPITAL COURSE: The patient came in with acute exacerbation of chronic obstructive pulmonary disease, difficulty breathing. She was placed on aggressive pulmonary toilet, started on antibiotics. The patient also had a positive lactic acid 3.5 as well as her sugars jumped up as well. The patient was in the 200s, need to be on a sliding scale. The patient had severe abdominal pain, and the pain was markedly tender to palpation. X-rays demonstrated fluid air lines in her abdomen as well as there was a left shift in her CBC. As a result of the abnormal x-ray of her abdomen as well as the left shift, the patient was transferred down to [place]. She did have a marked guarding to the abdominal pain, requires either GI, surgical or further evaluation by refined physicians down there at [place]. IMPRESSION: Acute exacerbation of chronic obstructive pulmonary disease with hypoxia and abdominal pain, possible ileus, moderate protein malnutrition, chronic kidney disease, hyperglycemia, positive lactic acid. MARTINE WOODSON MD DR: ANNIKA/rachel JOB#: [id number] / [id number]
== END 2018-07-13 10:52 | disposition short-term general hospital (02) | DRG 871 ==
LOC: ER 17:22 → 1 SOUTH 19:00
PROVIDERS: ADMIT Family Medicine; ATTEND Family Medicine
DX: A41.9 Sepsis, unspecified organism (principal); J96.01 Acute respiratory failure with hypoxia; J44.1 Chronic obstructive pulmonary disease with (acute) exacerbation; E44.0 Moderate protein-calorie malnutrition; J44.0 Chronic obstructive pulmonary disease with (acute) lower respiratory infection; K56.7 Ileus, unspecified; J20.9 Acute bronchitis, unspecified; Z80.3 Family history of malignant neoplasm of breast; Z83.3 Family history of diabetes mellitus; Z86.73 Personal history of transient ischemic attack (TIA), and cerebral infarction without residual deficits; Z87.01 Personal history of pneumonia (recurrent); Z87.891 Personal history of nicotine dependence; F32.9 Major depressive disorder, single episode, unspecified; M19.90 Unspecified osteoarthritis, unspecified site; Z88.2 Allergy status to sulfonamides; Z88.8 Allergy status to other drugs, medicaments and biological substances; Z98.41 Cataract extraction status, right eye; E11.22 Type 2 diabetes mellitus with diabetic chronic kidney disease; I12.9 Hypertensive chronic kidney disease with stage 1 through stage 4 chronic kidney disease, or unspecified chronic kidney disease; N18.3 Chronic kidney disease, stage 3 (moderate); Z68.32 Body mass index [BMI] 32.0-32.9, adult; E11.65 Type 2 diabetes mellitus with hyperglycemia
CPT/HCPCS: 36415; 71045; 74022; 80048; 80053; 81001; 83605; 85007; 85025; 87070; 87086; 87880; 94640; 96374; 96375; J0696; J1956; J2920; J2930; J7613; J7620; 99285-25; J7030

== ENCOUNTER 2019-02-12 17:35 | Inpatient (IN) | payer MEDICARE ==
[~2019-02-12] VITALS: Ht 171.4 cm; Wt 65.3 kg
[2019-02-12] MEDS ORDERED: ONDANSETRON ODT 4 MG TAB.RAPDIS PO ONE (18:00)
[2019-02-12] MEDS: ACETAMINOPHEN/CODEINE 300/30MG TABLET PO ONE ×2 (18:00→19:10)
--- NOTE | 2019-02-12 18:09 | PHYS DOC ---
Past History Past Medical History: COPD (EMMA MARCUS Jr., DO) Past Surgical History: No Surgical History (EMMA MARCUS Jr., DO) Smoking: Non-smoker Alcohol Use: None Drug Use: None (EMMA MARCUS Jr., DO) Adult General Chief Complaint Chief Complaint: MECHANICAL FALL HPI HPI Patient is an 83-year-old female who presents via EMS after reportedly falling while leaving her doctor's office. Patient states that she just fell forward and landed on the right side of her face/forehead area. She denies loss of consciousness. She does complain of a headache that she rates at an 8 out of 10. She also complains of left knee and right hip pain. She was able to ambulate post fall. She denies any chest pain or shortness breath. She also denies any nausea or vomiting.[] (EMMA MARCUS Jr., DO) Review of Systems Review of Systems Constitutional: Denies fever or chills [] Eyes: Denies change in visual acuity, redness, or eye pain [] Respiratory: Denies cough or shortness of breath [] Cardiovascular: No additional information not addressed in HPI [] GI: Denies abdominal pain, nausea, vomiting or diarrhea [] Musculoskeletal: Complains of right hip and left knee pain [] Integument: Positive laceration to right side of face[] Neurologic: Complains of headache without focal weakness or sensory changes [] All other systems were reviewed and found to be within normal limits, except as documented in this note. (EMMA MARCUS Jr., DO) Current Medications Current Medications Current Medications Medications (Trade) Dose Ordered Sig/Deo Start Time Stop Time Status Last Admin Dose Admin Acetaminophen/ Codeine Phosphate (Tylenol #3) 1 tab 1X ONCE 02/12/19 18:00 02/12/19 18:01 DC Lidocaine/ Epinephrine (Xylocaine 2%-Epi 1:100,000) 20 ml 1X ONCE 02/12/19 18:00 02/12/19 18:01 UNV Ondansetron HCl (Zofran Odt) 4 mg 1X ONCE 02/12/19 18:00 02/12/19 18:01 DC (EMMA MARCUS Jr., DO) Allergies Allergies Allergies Coded Allergies Type Severity Reaction Last Updated Verified Sulfa (Sulfonamide Antibiotics) Allergy Intermediate Hives 10/17/13 Yes promethazine Allergy Intermediate Hives 10/17/13 Yes (EMMA MARCUS Jr., DO) Physical Exam Physical Exam Constitutional: Well developed, well nourished, no acute distress, non-toxic appearance. [] HENT: Normocephalic, with approximately 1 similar laceration just lateral to the right eyebrow with surrounding hematoma, bilateral external ears normal, oropharynx moist, no oral exudates, nose normal. [] Eyes: PERRLA, EOMI, conjunctiva normal, no discharge. [] Neck: Normal range of motion, no tenderness, supple. [] Cardiovascular: Regular rate and rhythm[] Lungs & Thorax: Bilateral breath sounds clear to auscultation [] Abdomen: Bowel sounds normal, soft, no tenderness. [] Skin: Laceration as noted above. [] Extremities: Right hip demonstrates tenderness to palpation around the greater trochanter but has fairly good range of motion. Left knee demonstrates small abrasion overlying the patella with tenderness to palpation overlying this area. [] Neurologic: Alert and oriented X 3, no focal deficits noted. [] (EMMA MARCUS Jr., DO) EKG EKG [] (EMMA MARCUS Jr., DO) Radiology/Procedures Radiology/Procedures [] (EMMA MARCUS Jr., DO) Radiology/[place] [address] IMAGING REPORT Signed PATIENT: SIDNEY STANTON ACCOUNT: [id number] : 1935 LOCATION: ER AGE: 83 SEX: F EXAM STATUS: REG ER ORD. PHYSICIAN: EMMA MARCUS Jr., DO REASON: fall PROCEDURE: CT CERVICAL SPINE WO CONTRAST Exam: CT head, maxillofacial and cervical spine INDICATION: Fall TECHNIQUE: Sequential axial images through the head, maxillofacial and cervical spine were obtained without the administration of IV contrast. Comparisons: None FINDINGS: Head: No focal parenchymal lesion or hemorrhage is identified. There is no midline shift or sulcal effacement. Patchy hypodensities noted within the periventricular white matter. No acute vascular territory infarction is identified. Lantigua-white distinction is preserved. The ventricular system is within normal limits without compression hydrocephalus. The basal cisterns are well maintained. Face: There is a small soft tissue contusion overlying the site traumatic arch on the right. Globes and intraorbital contents are within normal limits. Mucosal thickening is noted within the maxillary sinus on the right. The visualized portions of the paranasal sinuses and mastoid air cells are well-pneumatized. No acute fractures. Cervical spine: Vertebral body heights and alignment are well-maintained. Fracture to the cervical spine is not identified. There is multilevel spondylotic change in the cervical spine with facet arthropathy noted throughout the cervical spine. Visualized paraspinal soft tissues are unremarkable. IMPRESSION: 1. Extracranial soft tissue contusion overlying the right psychometric arch. No underlying fracture. 2. No acute intracranial abnormality. 3. Negative CT C-spine for acute traumatic injury. Exposure: One or more of the following in the visualized dose reduction techniques were utilized for this examination: 1. Automated exposure control 2. Adjustment of the MA and/or KV according to patient size Use of iterative of reconstructive technique Electronically signed by: Jackie Bowers MD (02/12/2019 6:39 PM) [facility] [place] [facility] DICTATED AND SIGNED BY: JACKIE BOWERS MD DATE: 02/12/191838 CC: EMMA MARCUS Jr., DO; MARTINE WOODSON MD; CHARO CONNELLY MD ~ (CHARO CONNELLY MD) Course & Med Decision Making Course & Med Decision Making Pertinent Labs and Imaging studies reviewed. (See chart for details) [] (EMMA MARCUS Jr., DO) Course & Med Decision Making See Dr. Marcus note for prior eval. Procedure Note: Laceration Repair- laceration irrigated with normal saline. Injected lidocaine along edge. Re -irrigated laceration with saline. Closed with 2 6-0 Prolene sutures simple . Dressing applied. Pt. to keep laceration clean and dry. Polysporin 4 x day. Grand daughter and daughter advised she seemed to be processing normally. No acute mental status changes noted. Head Injury instructions given. Note pt. has fallen 3 times in the last couple days. Does not use a walker, but two canes. Know hx of gait disorder. Pt. admitted to Dr. Woodson for neuro observation and further eval. Frequent falls. Impression: 1. Fall- Trip 2. Rt Facial and Head Contusion 3. Laceration 2 Cm Rt. eyebrow/head 4. Contusion Rt Hip, Rt. and Lt. knee 5. Head Injury 6. Gait Disorder 7. Arthritis (CHARO CONNELLY MD) Dragon Disclaimer Dragon Disclaimer This electronic medical record was generated, in whole or in part, using a voice recognition dictation system. (EMMA MARCUS Jr. DO) Departure Departure: Disposition: 01 HOME/RESIDENCE PRIOR TO ADM Condition: STABLE Referrals: MARTINE WOODSON MD (PCP) Dragon Disclaimer This chart was dictated in whole or in part using Voice Recognition software in a busy, high-work load, and often noisy Emergency Department environment. It may contain unintended and wholly unrecognized errors or omissions. (CHARO CONNELLY MD) Dragon Disclaimer This chart was dictated in whole or in part using Voice Recognition software in a busy, high-work load, and often noisy Emergency Department environment. It may contain unintended and wholly unrecognized errors or omissions. (CHARO CONNELLY MD) EMMA MARCUS Jr., DO Feb 12, 2019 18:08 CHARO CONNELLY MD Feb 12, 2019 18:32
[2019-02-12] MEDS ORDERED: LIDOCAINE 2%/EPI 1:100,000 20 ML VIAL. IJ ONE (18:30)
--- NOTE | 2019-02-12 18:42 | RAD ---
Exam: CT head, maxillofacial and cervical spine INDICATION: Fall TECHNIQUE: Sequential axial images through the head, maxillofacial and cervical spine were obtained without the administration of IV contrast. Comparisons: None FINDINGS: Head: No focal parenchymal lesion or hemorrhage is identified. There is no midline shift or sulcal effacement. Patchy hypodensities noted within the periventricular white matter. No acute vascular territory infarction is identified. [place]-white distinction is preserved. The ventricular system is within normal limits without compression hydrocephalus. The basal cisterns are well maintained. Face: There is a small soft tissue contusion overlying the site traumatic arch on the right. Globes and intraorbital contents are within normal limits. Mucosal thickening is noted within the maxillary sinus on the right. The visualized portions of the paranasal sinuses and mastoid air cells are well-pneumatized. No acute fractures. Cervical spine: Vertebral body heights and alignment are well-maintained. Fracture to the cervical spine is not identified. There is multilevel spondylotic change in the cervical spine with facet arthropathy noted throughout the cervical spine. Visualized paraspinal soft tissues are unremarkable. IMPRESSION: 1. Extracranial soft tissue contusion overlying the right psychometric arch. No underlying fracture. 2. No acute intracranial abnormality. 3. Negative CT C-spine for acute traumatic injury. Exposure: One or more of the following in the visualized dose reduction techniques were utilized for this examination: 1. Automated exposure control 2. Adjustment of the MA and/or KV according to patient size Use of iterative of reconstructive technique Electronically signed by: Jackie Estrada MD (02/12/2019 6:39 PM) [facility]
[2019-02-12] MEDS ORDERED: oxyCODONE/APAP 5/325 1 TAB TABLET PO ONE (19:00)
[2019-02-12] MEDS ORDERED: BACITRACIN ZINC TOPICAL OINT PACKET. TP ONE ×2 (19:00→19:07)
[2019-02-12] MEDS ORDERED: IV RINGERS SOLUTION,LACTATED 1,000 ML IV SCH (19:28)
[2019-02-12] MEDS ORDERED: ONDANSETRON PF 4 MG/2 ML VIAL. IV PRN (19:30)
[2019-02-12] MEDS ORDERED: ACETAMINOPHEN 325 MG TABLET PO PRN (19:30)
[2019-02-12 20:21] LABS: BASO % 0 % (0-3); EOS # 0.1 x10^3/uL (0.0-0.7); EOS % 2 % (0-3); HEMATOCRIT 39.3 % (36.0-47.0); HEMOGLOBIN 13.2 g/dL (12.0-15.5); LYMPH # 1.4 x10^3/uL (1.0-4.8); LYMPH % 18 % (24-48); MEAN CORPUSCULAR HEMOGLOBIN 31 pg (25-35); MEAN CORPUSCULAR HGB CONC 34 g/dL (31-37); MEAN CORPUSCULAR VOLUME 91 fL (79-100); MONO # 0.6 x10^3/uL (0.0-1.1); MONO % 8 % (0-9); NEUT # 5.7 x10^3uL (1.8-7.7); NEUT % 73 % (31-73); PLATELET COUNT 232 x10^3/uL (140-400); RED BLOOD COUNT 4.31 x10^6/uL (3.50-5.40); RED CELL DISTRIBUTION WIDTH 13.4 % (11.5-14.5); WHITE BLOOD COUNT 7.8 x10^3/uL (4.0-11.0)
[2019-02-12 20:35] LABS: ALBUMIN 3.8 g/dL (3.4-5.0); CALCIUM 10.2 mg/dL (8.5-10.1); DIRECT BILIRUBIN 0.1 mg/dL (0.0-0.2); GFR 52.7; MAGNESIUM 1.9 mg/dL (1.8-2.4); TOTAL BILIRUBIN 0.5 mg/dL (0.2-1.0); TOTAL PROTEIN 8.4 g/dL (6.4-8.2)
[2019-02-12 20:36] LABS: POTASSIUM 4.5 mmol/L (3.5-5.1)
[2019-02-12] MEDS: MUPIROCIN 2% TOPICAL OINTMENT 22GM TUBE. TP SCH (21:00)
[2019-02-12 21:21] LABS: BILIRUBIN,URINE NEG (NEG); CLARITY,URINE HAZY; COLOR,URINE YELLOW; GLUCOSE,URINE NEG (NEG); NITRITE,URINE POS (NEG); UROBILINOGEN,URINE 0.2 mg/dL (0.2 mg/dL)
[2019-02-12 21:22] LABS: BACTERIA,URINE MOD /HPF (0-FEW); RBC,URINE RARE /HPF (0-2); SQUAMOUS EPITHELIAL CELL,UR OCC /LPF
[2019-02-12] MEDS: IPRATRPIUM/ALBUTEROL 0.5/2.5MG 3 ML NEBU. NEB SCH (22:29)
[2019-02-12] MEDS ORDERED: TRIA100A TP (23:05)
[2019-02-12] MEDS ORDERED: ALPR0.25 PO (23:05)
[2019-02-12] MEDS ORDERED: HYDR12.58 PO (23:05)
[2019-02-12] MEDS ORDERED: POTA20TA4 PO (23:05)
[2019-02-12] MEDS ORDERED: TRAM50TA PO (23:05)
[2019-02-12 23:08] VITALS: BP 131/79
--- NOTE | 2019-02-12 23:57 | RAD ---
AP pelvis radiograph to include AP and lateral radiographs of the right hip 02/12/2019 CLINICAL HISTORY: Fall with pelvic and right hip pain. An AP digital radiograph of the pelvis to include both hips was obtained. AP and lateral digital radiographs of the right hip were obtained. No pelvic bone fracture is seen. Both hips are intact. Specifically no fracture or dislocation right hip is seen. Moderate to severe degenerative changes are seen involving both hips. Mild degenerative changes are seen involving both SI joints. Mild to moderate degenerative changes are seen involving the mid and lower lumbar spine. Calcifications are seen within the pelvis consistent with phleboliths. IMPRESSION: No fracture or dislocation is seen. Electronically signed by: Meek Coto MD (02/12/2019 11:54 PM) [facility]
--- NOTE | 2019-02-12 23:59 | RAD ---
Three-view left knee radiographs 02/12/2019 CLINICAL HISTORY: Fall with injury to the left knee. AP, lateral and oblique digital radiographs of the left knee were obtained. There is diffuse osteopenia of the visualized bony structures. No fracture or dislocation of the left knee is seen. Moderate to severe degenerative changes are seen involving all 3 compartments of the left knee. There is no radiographic evidence of a joint effusion. Atherosclerotic calcification of the left popliteal artery is noted. IMPRESSION: No fracture or dislocation of the left knee is seen. Electronically signed by: Meek Coto MD (02/12/2019 11:56 PM) [facility]
--- NOTE | 2019-02-13 00:01 | RAD ---
AP portable chest radiograph 02/12/2019 Clinical History: Fall chest injury. An AP erect portable digital radiograph of the chest was obtained. Comparison study is dated 07/10/2018. The cardiac silhouette is mildly enlarged. The thoracic aorta is mildly tortuous. Atherosclerotic calcification of the thoracic aorta is seen. No acute pulmonary infiltrate is noted. No pneumothorax or pleural effusion is seen. There is diffuse osteopenia of the visualized bony structures. Degenerative changes are seen involving the thoracic spine and both shoulders. The osseous structures are grossly intact. Impression: No acute abnormality is seen. Electronically signed by: Meek Coto MD (02/12/2019 11:58 PM) [facility]
[2019-02-13 02:50] VITALS: BP 112/50
--- NOTE | 2019-02-13 04:01 | EKG ---
[address] [address] Test Date: 2019-02-12 Test Time: 19:41:04 Pat Name: SIDNEY STANTON Department: Room: Gender: F Insurance Claims Representative: TRU : 1935 Requested By: CHARO CONNELLY Order Number: [id number] Reading MD: Measurements Intervals [place] Rate: 66 P: 44 IN: 178 QRS: 16 QRSD: 80 T: 49 QT: 410 QTc: 432 Interpretive Statements SINUS RHYTHM QRS(T) CONTOUR ABNORMALITY CONSIDER ANTEROLATERAL MYOCARDIAL DAMAGE CONSIDER INFERIOR MYOCARDIAL DAMAGE POSSIBLY ABNORMAL ECG RI6.01 No previous ECG available for comparison
[2019-02-13] MEDS: IPRATRPIUM/ALBUTEROL 0.5/2.5MG 3 ML NEBU. NEB SCH (05:49)
[2019-02-13 06:22] VITALS: BP 109/52
[2019-02-13 06:47] LABS: BASO % 0 % (0-3); EOS # 0.1 x10^3/uL (0.0-0.7); EOS % 2 % (0-3); HEMATOCRIT 33.3 % (36.0-47.0); HEMOGLOBIN 11.1 g/dL (12.0-15.5); LYMPH # 1.7 x10^3/uL (1.0-4.8); LYMPH % 27 % (24-48); MEAN CORPUSCULAR HEMOGLOBIN 31 pg (25-35); MEAN CORPUSCULAR HGB CONC 33 g/dL (31-37); MEAN CORPUSCULAR VOLUME 92 fL (79-100); MONO # 0.7 x10^3/uL (0.0-1.1); MONO % 10 % (0-9); NEUT # 3.9 x10^3uL (1.8-7.7); NEUT % 61 % (31-73); PLATELET COUNT 177 x10^3/uL (140-400); RED BLOOD COUNT 3.63 x10^6/uL (3.50-5.40); RED CELL DISTRIBUTION WIDTH 13.3 % (11.5-14.5); WHITE BLOOD COUNT 6.4 x10^3/uL (4.0-11.0)
[2019-02-13 06:54] LABS: CREATININE 1.1 mg/dL (0.6-1.0); GFR 47.2; POTASSIUM 3.8 mmol/L (3.5-5.1)
[2019-02-13] MEDS ORDERED: IPRATRPIUM/ALBUTEROL 0.5/2.5MG 3 ML NEBU. NEB PRN (09:00)
[2019-02-13] MEDS ORDERED: FLU VAX QS 2019-20 (36MOS+)/PF 0.5 ML SYRINGE. VAX IM ONE (09:00)
[2019-02-13] MEDS: hydroCHLOROthiazide 12.5 MG CAPSULE PO SCH (10:00)
[2019-02-13] MEDS: ATENOLOL 50 MG TABLET PO SCH (10:00)
[2019-02-13] MEDS ORDERED: traMADol 50 MG TABLET PO PRN (10:00)
[2019-02-13] MEDS ORDERED: TRIAMCINOLONE ACETONIDE 0.1% TOPICAL CREAM 15GM TUBE. TP PRN (10:30)
[2019-02-13] MEDS: POTASSIUM CHLORIDE 20 MEQ TABLET.ER. PO SCH (10:33)
[2019-02-13] MEDS: CETIRIZINE HCL 10 MG TABLET PO SCH (10:33)
[2019-02-13] MEDS: MUPIROCIN 2% TOPICAL OINTMENT 22GM TUBE. TP SCH ×2 (10:33→21:00)
[2019-02-13] MEDS: VENLAFAXINE 75 MG TABLET. PO SCH (10:45)
[2019-02-13 11:00] VITALS: BP 105/44
[2019-02-13 14:48] VITALS: BP 107/56
[2019-02-13 19:30] VITALS: BP 111/65
[2019-02-13] MEDS: ALPRAZolam 0.25 MG TABLET PO PRN (20:39)
[2019-02-13 23:19] VITALS: BP 116/66
--- NOTE | 2019-02-14 00:04 | HP ---
ADMIT DATE: 02/12/2019 HISTORY OF PRESENT ILLNESS: An 83-year-old female who came in via EMS after reportedly falling while leaving the doctor's office. Actually, she was being seen by a varicose specialist for her legs when apparently she fell forward, landed on the right side of her face, forehead. The patient had multiple bruises including left knee pain and right hip pain. She denied any lightheadedness, chest pain, nausea, vomiting, or diaphoresis. She was seen in the Emergency Room and evaluated with multiple casts. A thorough workup was performed there, but she was admitted for further evaluation. For her elderly age and generalized weakness, the patient was admitted for further evaluation and treatment of these multiple contusions and possible concussion. PAST MEDICAL HISTORY: Includes cataract of the right eye; hearing problems, left ear; TIAs and dementia. She is on Xarelto. COPD, emphysema, pneumonia, tubal ligation, urinary tract infection, pain during urination, arthritis, psychiatric problems, depression. SOCIAL HISTORY: Smoking history, the patient had stopped in 1992, although she had about a 35-year history of smoking. IMMUNIZATIONS: Tetanus, influenza and pneumococcal are all up-to-date. FAMILY HISTORY: Father had kidney disease, diabetes and coronary artery disease. Mother with breast cancer and gallbladder problems. ALLERGIES: SULFUR and PROMETHAZINE. MEDICATIONS: Otherwise, the patient is on loratadine ____ 50 mg a day, tramadol, Effexor 75 daily, Xanax 0.25, potassium chloride, hydrochlorothiazide and triamcinolone. REVIEW OF SYSTEMS: As noted, with her multiple injuries to her head, hip and knee. The patient denied any chest pain or abdominal pain. Denies any nausea, vomiting, melena, hematochezia, or hematemesis and neurologically, baseline for her. The patient otherwise is a full code. PHYSICAL EXAMINATION: GENERAL: This is a pleasant white female. She is quite bruised to the right side of the face with ecchymosis from the forehead down to the right maxillary area. However, the eyes were PERRLA, EOMI. Sclerae clear. LUNGS: Diminished, but clear. CARDIOVASCULAR: Regular sinus rhythm, 1/6 systolic ejection murmur. ABDOMEN: Soft, nontender, no rebounding and no guarding. Positive bowel sounds, no hepatosplenomegaly was noted. EXTREMITIES: No clubbing, cyanosis. Abrasions noted to the knees. The patient had negative shake test. NEUROLOGIC: The patient was alert and oriented, baseline for this individual. Her x-rays were basically unremarkable. Knee x-ray was negative for fracture, although she did have the abrasions to that area. The patient's hip x-rays were also negative for fracture, although she was tender in that area. The patient's CT scan of the facial area showed a soft tissue swelling consistent with a contusion to the face; however, there are no signs of bleeding. The patient otherwise had extracranial soft tissue contusion as indicated. Cervical spine was unremarkable except for degenerative arthritis and the chest x-ray itself was unremarkable. The patient's EKG showed sinus rhythm. IMPRESSION: Fall onto a sidewalk. The patient with a contusion to the face, possible mild concussion; contusion to the right knee, left hip; multiple abrasions secondary to her fall. PLAN: The patient will be admitted for further evaluation and treatment and make further assessment on her as indicated. MARTINE WOODSON MD DR: ANNIKA/rachel JOB#: [id number] / [id number]
[2019-02-14 05:03] VITALS: BP 116/68
[2019-02-14] MEDS: CETIRIZINE HCL 10 MG TABLET PO SCH (08:16)
[2019-02-14] MEDS: hydroCHLOROthiazide 12.5 MG CAPSULE PO SCH (08:16)
[2019-02-14] MEDS: POTASSIUM CHLORIDE 20 MEQ TABLET.ER. PO SCH (08:17)
[2019-02-14] MEDS: ATENOLOL 50 MG TABLET PO SCH (08:17)
[2019-02-14] MEDS: MUPIROCIN 2% TOPICAL OINTMENT 22GM TUBE. TP SCH ×2 (08:17→20:44)
[2019-02-14] MEDS: ALPRAZolam 0.25 MG TABLET PO PRN (08:19)
[2019-02-14] MEDS: VENLAFAXINE 75 MG TABLET. PO SCH (09:00)
[2019-02-14 11:38] VITALS: BP 108/69
[2019-02-14 14:34] VITALS: BP 110/68
[2019-02-14 20:00] VITALS: BP 124/73
[2019-02-14 23:25] VITALS: BP 115/71
--- NOTE | 2019-02-15 03:02 | PN ---
DATE: SUBJECTIVE: An 83-year-old female who had multiple contusions, concussion and bruising secondary to a fall at a vein clinic. The patient is still very weak, having difficulty getting up. Otherwise, the patient is receiving PT, OT for continued rehabilitation care. The bruising on her face seems to be healing fairly well. There is some improvement there. The patient's cultures on her urine are still pending. OBJECTIVE: VITAL SIGNS: Other than that, the patient's blood pressure that of 110/68, respiratory rate 20, pulse 70, afebrile. GENERAL: The patient is alert and oriented to baseline. LUNGS: Diminished, but clear. CARDIOVASCULAR: Irregularly irregular. ABDOMEN: Soft, bruising to the face shows improvement. The patient is able to get up with the assistance and needs a walker. IMPRESSION: Multiple contusions to the face, mild concussion, and falls onto to sidewalk Contusion to the right knee and left hip, multiple abrasions secondary to her fall. Continue with PT, OT. MARTINE WOODSON MD DR: ANNIKA/rachel JOB#: [id number] / [id number]
[2019-02-15 05:25] VITALS: BP 126/68
[2019-02-15] MEDS ORDERED: MUPI22OI2 TP (09:02)
[2019-02-15] MEDS: POTASSIUM CHLORIDE 20 MEQ TABLET.ER. PO SCH (09:08)
[2019-02-15] MEDS: MUPIROCIN 2% TOPICAL OINTMENT 22GM TUBE. TP SCH (09:08)
[2019-02-15] MEDS: CETIRIZINE HCL 10 MG TABLET PO SCH (09:08)
[2019-02-15] MEDS: hydroCHLOROthiazide 12.5 MG CAPSULE PO SCH (09:08)
[2019-02-15 09:09] VITALS: BP 126/68
[2019-02-15] MEDS: ATENOLOL 50 MG TABLET PO SCH (09:09)
[2019-02-15] MEDS: VENLAFAXINE 75 MG TABLET. PO SCH (09:09)
== END 2019-02-15 11:30 | disposition home or self-care (01) | DRG 605 ==
LOC: ER 17:35 → ICU 19:00 → 1 SOUTH 02-13 19:00
PROVIDERS: ADMIT Family Medicine; ATTEND Family Medicine
DX: S00.83XA Contusion of other part of head, initial encounter (principal); S80.01XA Contusion of right knee, initial encounter; S70.02XA Contusion of left hip, initial encounter; J43.9 Emphysema, unspecified; M19.90 Unspecified osteoarthritis, unspecified site; F03.90 Unspecified dementia, unspecified severity, without behavioral disturbance, psychotic disturbance, mood disturbance, and anxiety; F32.9 Major depressive disorder, single episode, unspecified; H26.9 Unspecified cataract; W18.30XA Fall on same level, unspecified, initial encounter; Y93.89 Activity, other specified; Y92.89 Other specified places as the place of occurrence of the external cause; Y99.8 Other external cause status; Z88.2 Allergy status to sulfonamides; Z88.8 Allergy status to other drugs, medicaments and biological substances; Z87.891 Personal history of nicotine dependence; Z79.01 Long term (current) use of anticoagulants; Z86.73 Personal history of transient ischemic attack (TIA), and cerebral infarction without residual deficits; Z84.1 Family history of disorders of kidney and ureter; Z83.3 Family history of diabetes mellitus; Z80.3 Family history of malignant neoplasm of breast
CPT/HCPCS: 12011; 36415; 70450; 70486; 71045; 72125; 73502; 73562; 80048; 80076; 81001; 82550; 83735; 84484; 85025; 85610; 85730; 87086; 90471; 90686; 93005; 94640; 96360; G0238; J7120; J7620; Q0162; 97116; 99285-25

== ENCOUNTER 2019-03-09 19:00 | Inpatient (IN) | payer MEDICARE ==
[~2019-03-09] VITALS: Ht 144.8 cm; Wt 67.1 kg
[~2019-03-09 19:00] MED LIST changes: +ALPR0.25 PO; +HYDR12.58 PO; +MUPI22OI2 TP; +POTA20TA4 PO; -POTA20TA82 PO; +TRAM50TA PO; +TRIA100A TP
[2019-03-09 20:28] LABS: BASO % 0 % (0-3); EOS # 0.1 x10^3/uL (0.0-0.7); EOS % 2 % (0-3); HEMATOCRIT 35.5 % (36.0-47.0); HEMOGLOBIN 11.7 g/dL (12.0-15.5); LYMPH # 1.9 x10^3/uL (1.0-4.8); LYMPH % 31 % (24-48); MEAN CORPUSCULAR HEMOGLOBIN 30 pg (25-35); MEAN CORPUSCULAR HGB CONC 33 g/dL (31-37); MEAN CORPUSCULAR VOLUME 92 fL (79-100); MONO # 0.7 x10^3/uL (0.0-1.1); MONO % 12 % (0-9); NEUT # 3.4 x10^3uL (1.8-7.7); NEUT % 55 % (31-73); PLATELET COUNT 211 x10^3/uL (140-400); RED BLOOD COUNT 3.86 x10^6/uL (3.50-5.40); RED CELL DISTRIBUTION WIDTH 13.5 % (11.5-14.5); WHITE BLOOD COUNT 6.2 x10^3/uL (4.0-11.0)
[2019-03-09 20:50] LABS: ALBUMIN 3.5 g/dL (3.4-5.0); ALBUMIN/GLOBULIN RATIO 0.9 (1.0-1.7); CALCIUM 9.6 mg/dL (8.5-10.1); CREATININE 0.9 mg/dL (0.6-1.0); GFR 59.5; POTASSIUM 4.2 mmol/L (3.5-5.1); TOTAL BILIRUBIN 0.3 mg/dL (0.2-1.0); TOTAL PROTEIN 7.4 g/dL (6.4-8.2)
[2019-03-09 21:12] LABS: BACTERIA,URINE 0 /HPF (0-FEW); BILIRUBIN,URINE NEG (NEG); CLARITY,URINE CLEAR; COLOR,URINE STRAW; GLUCOSE,URINE NEG (NEG); NITRITE,URINE NEG (NEG); RBC,URINE 0 /HPF (0-2); SQUAMOUS EPITHELIAL CELL,UR OCC /LPF; UROBILINOGEN,URINE 0.2 mg/dL (0.2 mg/dL)
--- NOTE | 2019-03-09 21:31 | RAD ---
CHEST AP ONLY INDICATION: Dyspnea. COMPARISON STUDY: 02/12/2019. FINDINGS: Lungs: Normal lung volume. No pulmonary mass or consolidation. The tracheobronchial tree and hilar structures are normal. Pleura: No pleural effusion or pneumothorax. Heart and Mediastinum: Stable cardiomediastinal silhouette and great vessels. IMPRESSION: No consolidation. Electronically signed by: Josh Coleman MD (03/09/2019 9:28 PM) [facility]
[2019-03-09] MEDS ORDERED: TRIAMCINOLONE ACETONIDE 0.1% TOPICAL CREAM 15GM TUBE. TP PRN (23:00)
[2019-03-09] MEDS ORDERED: traMADol 50 MG TABLET PO PRN (23:00)
[2019-03-09] MEDS ORDERED: ALPRAZolam 0.25 MG TABLET PO PRN (23:00)
--- NOTE | 2019-03-09 23:02 | RAD ---
CT HEAD WO CONTRAST Date: 03/09/2019 10:17 PM Clinical Indication: Comparison: 02/12/2019. Technique: 5 mm axial tomographic images were obtained of the head without contrast. These were viewed on brain and bone windows. One or more of the following dose reduction techniques were utilized: Automated exposure control (AEC), Adjustment of mA and/or kV according to patient size, Use of iterative reconstruction technique such as ASiR, CT scan done according to ALARA and image gently/image wisely Findings: Mild generalized cerebral and cerebellar volume loss. Mild nonspecific periventricular hypoattenuation, most commonly seen with chronic small vessel ischemic disease. Calcified atherosclerosis of the bilateral cavernous and paraclinoid internal carotid arteries and intracranial vertebral arteries. No intra- or extra-axial mass or fluid collection. No acute hemorrhage. The ventricles are normal in size, shape, and morphology. The lee-white matter junction is normal. The subarachnoid cisterns are patent. The visualized paranasal sinuses are normal. The visualized portions of the orbits and globes are normal. The mastoid air cells are clear. The advance scout topogram shows no lytic lesion or fracture. Impression: No acute intracranial process. Mild cerebral volume loss. Mild chronic small vessel ischemic disease. Electronically signed by: Josh Coleman MD (03/09/2019 10:58 PM) [facility]
[2019-03-09] MEDS ORDERED: PANT40TA5 PO (23:09)
[2019-03-09] MEDS ORDERED: VENL75CA6 PO (23:09)
[2019-03-10] VITALS (7 sets, daily range): BP systolic 124–158; BP diastolic 68–91
[2019-03-10] MEDS ORDERED: POTA20TA4 PO (01:21)
[2019-03-10] MEDS ORDERED: ASPI-630 PO (01:21)
[2019-03-10] MEDS ORDERED: TRAM50TA PO (01:21)
[2019-03-10] MEDS ORDERED: LORA10TA55 PO (01:21)
[2019-03-10] MEDS ORDERED: HYDR12.58 PO (01:21)
--- NOTE | 2019-03-10 05:54 | PHYS DOC ---
Past History Past Medical History: Arthritis, COPD, Depression, Hypertension, TIA, Other Past Surgical History: Tubal ligation, Other Additional Past Surgical Histo: cataract surgery Smoking: Non-smoker Alcohol Use: None Drug Use: None Adult General Chief Complaint Chief Complaint: MECHANICAL FALL HPI HPI Patient is a 83-year-old female who presents with recurrent falls generalized weakness with inability to take care of herself at home. Patient currently lives with her daughter. She states she fell yesterday while walking with her walker and struck the back of her headache. Denies headache, dizziness, neck pain. Denies dyspnea medications or use caloric intake. [] Review of Systems Review of Systems Constitutional: Denies fever or chills [] Eyes: Denies change in visual acuity, redness, or eye pain [] HENT: Denies nasal congestion or sore throat [] Respiratory: Denies cough or shortness of breath [] Cardiovascular: No additional information not addressed in HPI [] GI: Denies abdominal pain, nausea, vomiting, bloody stools or diarrhea [] : Denies dysuria or hematuria [] Musculoskeletal: Denies back pain or joint pain [] Integument: Denies rash or skin lesions [] Neurologic: Denies headache, focal weakness or sensory changes [] Endocrine: Denies polyuria or polydipsia [] All other systems were reviewed and found to be within normal limits, except as documented in this note. Allergies Allergies Allergies Coded Allergies Type Severity Reaction Last Updated Verified Sulfa (Sulfonamide Antibiotics) Allergy Intermediate Hives 10/17/13 Yes promethazine Allergy Intermediate Hives 10/17/13 Yes Physical Exam Physical Exam Constitutional: Well developed, well nourished, no acute distress, non-toxic appearance. [] HENT: Normocephalic, atraumatic, bilateral external ears normal, oropharynx moist, no oral exudates, nose normal. [] Eyes: PERRLA, EOMI, conjunctiva normal, no discharge. [] Neck: Normal range of motion, no tenderness, supple, no stridor. [] Cardiovascular:Heart rate regular rhythm, no murmur [] Lungs & Thorax: Bilateral breath sounds clear to auscultation [] Abdomen: Bowel sounds normal, soft, [] Skin: Warm, dry, no erythema, no rash. [] Back: No tenderness, no CVA tenderness. [] Extremities: No tenderness, no cyanosis, no clubbing, ROM intact, no edema. [] Neurologic: Alert and oriented X 3, normal motor function, normal sensory function, no focal deficits noted. [] Psychologic: Affect normal, judgement normal, mood normal. [] Current Patient Data Vital Signs Vital Signs Date Time Temp Pulse Resp B/P (MAP) Pulse Ox O2 Delivery O2 Flow Rate FiO2 03/10/19 05:42 97.7 71 20 126/77 (93) 95 Room Air Lab Results Laboratory Tests Test 03/09/19 20:10 03/09/19 20:25 White Blood Count 6.2 x10^3/uL (4.0-11.0) Red Blood Count 3.86 x10^6/uL (3.50-5.40) Hemoglobin 11.7 g/dL (12.0-15.5) L Hematocrit 35.5 % (36.0-47.0) L Mean Corpuscular Volume 92 fL (79-100) Mean Corpuscular Hemoglobin 30 pg (25-35) Mean Corpuscular Hemoglobin Concent 33 g/dL (31-37) Red Cell Distribution Width 13.5 % (11.5-14.5) Platelet Count 211 x10^3/uL (140-400) Neutrophils (%) (Auto) 55 % (31-73) Lymphocytes (%) (Auto) 31 % (24-48) Monocytes (%) (Auto) 12 % (0-9) H Eosinophils (%) (Auto) 2 % (0-3) Basophils (%) (Auto) 0 % (0-3) Neutrophils # (Auto) 3.4 x10^3uL (1.8-7.7) Lymphocytes # (Auto) 1.9 x10^3/uL (1.0-4.8) Monocytes # (Auto) 0.7 x10^3/uL (0.0-1.1) Eosinophils # (Auto) 0.1 x10^3/uL (0.0-0.7) Basophils # (Auto) 0.0 x10^3/uL (0.0-0.2) Sodium Level 143 mmol/L (136-145) Potassium Level 4.2 mmol/L (3.5-5.1) Chloride Level 104 mmol/L (98-107) Carbon Dioxide Level 30 mmol/L (21-32) Anion Gap 9 (6-14) Blood Urea Nitrogen 19 mg/dL (7-20) Creatinine 0.9 mg/dL (0.6-1.0) Estimated GFR (Cockcroft-Gault) 59.5 BUN/Creatinine Ratio 21 (6-20) H Glucose Level 84 mg/dL (70-99) Calcium Level 9.6 mg/dL (8.5-10.1) Total Bilirubin 0.3 mg/dL (0.2-1.0) Aspartate Amino Transferase (AST) 21 U/L (15-37) Alanine Aminotransferase (ALT) 19 U/L (14-59) Alkaline Phosphatase 84 U/L (46-116) Troponin I Quantitative < 0.017 ng/mL (0-0.055) Total Protein 7.4 g/dL (6.4-8.2) Albumin 3.5 g/dL (3.4-5.0) Albumin/Globulin Ratio 0.9 (1.0-1.7) L Urine Collection Type Unknown Urine Color Straw Urine Clarity Clear Urine pH 7.0 Urine Specific [place] 1.015 Urine Protein Neg (NEG-TRACE) Urine Glucose (UA) Neg mg/dL (NEG) Urine Ketones (Stick) Neg mg/dL (NEG) Urine Blood Neg (NEG) Urine Nitrite Neg (NEG) Urine Bilirubin Neg (NEG) Urine Urobilinogen Dipstick 0.2 mg/dL (0.2 mg/dL) Urine Leukocyte Esterase Trace (NEG) Urine RBC 0 /HPF (0-2) Urine WBC 1-4 /HPF (0-4) Urine Squamous Epithelial Cells Occ /LPF Urine Bacteria 0 /HPF (0-FEW) EKG EKG [] Radiology/Procedures Radiology/Procedures CT head: [No acute findings per radiology report.] Course & Med Decision Making Course & Med Decision Making Pertinent Labs and Imaging studies reviewed. (See chart for details) [Patient unsafe to return to home due to multiple falls within the past 2 weeks despite using a walker. Concern for ataxia possibly secondary to stroke versus other cause. Dr. Espino to admit.] Magan Disclaimer Magan Disclaimer This electronic medical record was generated, in whole or in part, using a voice recognition dictation system. Departure Departure: Impression: Primary Impression: Generalized weakness Additional Impression: Ataxia Disposition: 09 ADMITTED INPATIENT Condition: STABLE Problem Qualifiers MARIELENA POTTS DO Mar 10, 2019 05:54
[2019-03-10 06:35] LABS: BASO % 0 % (0-3); EOS # 0.1 x10^3/uL (0.0-0.7); EOS % 2 % (0-3); HEMATOCRIT 34.5 % (36.0-47.0); HEMOGLOBIN 11.3 g/dL (12.0-15.5); LYMPH # 1.6 x10^3/uL (1.0-4.8); LYMPH % 29 % (24-48); MEAN CORPUSCULAR HEMOGLOBIN 30 pg (25-35); MEAN CORPUSCULAR HGB CONC 33 g/dL (31-37); MEAN CORPUSCULAR VOLUME 92 fL (79-100); MONO # 0.7 x10^3/uL (0.0-1.1); MONO % 12 % (0-9); NEUT # 3.1 x10^3uL (1.8-7.7); NEUT % 57 % (31-73); PLATELET COUNT 185 x10^3/uL (140-400); RED BLOOD COUNT 3.74 x10^6/uL (3.50-5.40); RED CELL DISTRIBUTION WIDTH 13.5 % (11.5-14.5); WHITE BLOOD COUNT 5.6 x10^3/uL (4.0-11.0)
[2019-03-10 06:43] LABS: CALCIUM 9.3 mg/dL (8.5-10.1); GFR 52.7; POTASSIUM 3.8 mmol/L (3.5-5.1)
[2019-03-10] MEDS: CETIRIZINE HCL 10 MG TABLET PO SCH (08:28)
[2019-03-10] MEDS: hydroCHLOROthiazide 12.5 MG CAPSULE PO SCH (08:28)
[2019-03-10] MEDS: POTASSIUM CHLORIDE 20 MEQ TABLET.ER. PO SCH (08:29)
[2019-03-10] MEDS: VENLAFAXINE XR 37.5 MG CAP.ER.24H. PO SCH (08:29)
[2019-03-10] MEDS: ATENOLOL 25 MG TABLET PO SCH (08:29)
[2019-03-10] MEDS ORDERED: MUPIROCIN 2% TOPICAL OINTMENT 22GM TUBE. TP SCH (09:00)
[2019-03-10] MEDS ORDERED: VENLAFAXINE 75 MG TABLET. PO SCH (09:00)
[2019-03-10] MEDS ORDERED: traMADol 50 MG TABLET PO PRN (09:30)
--- NOTE | 2019-03-10 10:07 | HP ---
ADMIT DATE: 03/09/2019 HISTORY OF PRESENT ILLNESS: This is an 83-year-old female and apparently, she has been extremely weak, been falling several times at home, hit the back of her head. The patient does not realize that she has been falling as a result of weakness that is to say like syncope or she says her knees just give out on her. So, she will be in for further evaluation of these multiplicity of medical problems as they have become increasingly difficult for her to function at home. A CT scan showed no acute process. She did have atherosclerosis of the brain. We will continue to be monitored carefully accordingly. PAST MEDICAL HISTORY: Cataracts, hearing problems, TIA, dementia. She is on chronic Xarelto; hypertension, COPD, emphysema, pneumonia, tubal ligation, urinary tract infection, incontinence, pain during urination, urinary urgency, arthritis, psychiatric problems, depression, tetanus, influenza and pneumococcal vaccines up-to-date. FAMILY HISTORY: Mother had diabetes, gallbladder problem, breast cancer. Father had heart disease as well as kidney disease. ALLERGIES: SULFUR AND PROMETHAZINE. HOME MEDICATIONS: She says she is taking loratadine, atenolol 25, aspirin, tramadol 50, Effexor XR 75, Xanax 0.25, potassium chloride, hydrochlorothiazide, Protonix 40, and Kenalog. SOCIAL HISTORY: No smoking, alcohol or drug use. Lives at home by herself. She is a full code. REVIEW OF SYSTEMS: She says her head hurts and generalized weakness in her legs. The patient otherwise denies any chest pain, shortness of breath, or abdominal pain. Denies any melena, hematochezia, hematemesis, and neurologically, she is a delightful lady, but very weak overall. PHYSICAL EXAMINATION: GENERAL: The patient on exam is a very pleasant white female. VITAL SIGNS: Blood pressure 126/70, respiratory rate 20, pulse 70, afebrile. HEENT: The patient's head was atraumatic, although there is a little knot on the back of her head where she fell and hit her head. The patient's eyes were PERRLA. Mouth and throat were normal. NECK: Supple, no JVD or thyromegaly. LUNGS: Diminished throughout. CARDIOVASCULAR: Regular sinus rhythm. ABDOMEN: Soft, nontender. EXTREMITIES: No clubbing, cyanosis or edema. Bruises noted to the knees, very extreme dry skin to the lower legs are cracking to the skin. Pulses noted distally. NEUROLOGIC: Speech is fluent, spontaneous, and appropriate. She is answering questions. She does walk with a walker and with a little bit of assistance, she is making good progress. Otherwise, doing reasonably well. IMPRESSION: Multiple falls, concussion, and contusion to the head, hyperglycemia, and anemia of chronic disease. We will continue with PT, OT and further evaluation as other reports are reported back. MARTINE WOODSON MD DR: ANNIKA/rachel JOB#: [id number] / [id number]
[2019-03-10] MEDS: AMMONIUM LACTATE 12% TOPICAL LOTION 226GM BOTTLE. TP SCH ×2 (10:13→20:43)
[2019-03-10] MEDS ORDERED: AMMONIUM LACTATE 12% TOPICAL LOTION 226GM BOTTLE. TP SCH (21:00)
--- NOTE | 2019-03-11 04:08 | EKG ---
[address] [address] Test Date: 2019-03-09 Test Time: 22:53:58 Pat Name: SIDNEY STANTON Department: Room: 115 A Gender: F Germ Drier: : 1935 Requested By: MARIELENA POTTS Order Number: [id number] Reading MD: Yasmani Currie Measurements Intervals [place] Rate: 85 P: 46 W[place]: 174 QRS: 26 QRSD: 70 T: 52 QT: 352 QTc: 419 Interpretive Statements SINUS RHYTHM Electronically Signed On 03-15-2019 15:03:01 MEDICAL LAB ASSISTANT by Yasmani Currie
[2019-03-11 06:19] VITALS: BP 127/70
[2019-03-11] MEDS: CETIRIZINE HCL 10 MG TABLET PO SCH (08:07)
[2019-03-11] MEDS: VENLAFAXINE XR 37.5 MG CAP.ER.24H. PO SCH (08:07)
[2019-03-11] MEDS: PANTOPRAZOLE 40 MG TABLET. PO SCH (08:08)
[2019-03-11] MEDS: POTASSIUM CHLORIDE 20 MEQ TABLET.ER. PO SCH (08:08)
[2019-03-11] MEDS: hydroCHLOROthiazide 12.5 MG CAPSULE PO SCH (08:08)
[2019-03-11] MEDS: ATENOLOL 25 MG TABLET PO SCH (08:08)
[2019-03-11] MEDS: AMMONIUM LACTATE 12% TOPICAL LOTION 226GM BOTTLE. TP SCH ×2 (08:08→21:56)
[2019-03-11] MEDS ORDERED: ASPIRIN 81 MG TAB.CHEW PO SCH (09:00)
[2019-03-11] MEDS ORDERED: NON FORMULARY ITEM (Loratadine 1 TAB) PO SCH (09:00)
[2019-03-11] MEDS ORDERED: NON FORMULARY ITEM (Potassium Chloride 20 MEQ) PO SCH (09:00)
[2019-03-11] MEDS ORDERED: hydroCHLOROthiazide 12.5 MG CAPSULE PO SCH (09:00)
[2019-03-11 10:39] VITALS: BP 109/56
[2019-03-11 14:48] VITALS: BP 117/75
[2019-03-11 20:13] VITALS: BP 107/69
--- NOTE | 2019-03-12 00:56 | PN ---
DATE: SUBJECTIVE: An 83-year-old female who has been having trouble with multiple falls, generalized weakness, receiving physical and occupational therapy. The patient outside of being fairly weak and still having difficulty in mobilization except for the use of a walker, is feeling better overall. The patient in turn had a head CAT scan, which showed no intracranial process and some chronic changes consistent with the patient's age. Otherwise, patient has some general aches and pains, just from her falling, which she says comes about from weakness. OBJECTIVE: VITAL SIGNS: Blood pressure 117/75, respiratory rate 20, pulse 70, afebrile. GENERAL: The patient is alert, baseline for her. She has a pleasant laugh. LUNGS: Otherwise, lungs are diminished throughout, but basically clear. CARDIOVASCULAR: S1, S2, possibly 1/6 systolic ejection murmur, otherwise basically unremarkable there. ABDOMEN: Soft, nontender. The patient's grossly has some bruises, but other than that seems to be healing up fairly well. We will continue PT, OT, recommended the patient look at some possibility of a skilled unit or rehabilitation unit for further strengthening before being discharged home. Labs are basically stable, otherwise we will continue to monitor. IMPRESSION: Multiple falls, mild concussion, contusion of the head, hyperglycemia, anemia of chronic disease. Continue PT, OT for continued rehabilitation possible skilled placement. MARTINE WOODSON MD DR: ANNIKA/rachel JOB#: [id number] / [id number]
[2019-03-12 06:08] VITALS: BP 129/66
[2019-03-12] MEDS: hydroCHLOROthiazide 12.5 MG CAPSULE PO SCH (07:56)
[2019-03-12] MEDS: ATENOLOL 25 MG TABLET PO SCH (07:56)
[2019-03-12] MEDS: CETIRIZINE HCL 10 MG TABLET PO SCH (07:56)
[2019-03-12] MEDS: VENLAFAXINE XR 37.5 MG CAP.ER.24H. PO SCH (07:56)
[2019-03-12] MEDS: PANTOPRAZOLE 40 MG TABLET. PO SCH (07:57)
[2019-03-12] MEDS: POTASSIUM CHLORIDE 20 MEQ TABLET.ER. PO SCH (07:57)
[2019-03-12] MEDS: AMMONIUM LACTATE 12% TOPICAL LOTION 226GM BOTTLE. TP SCH (07:58)
[2019-03-12] MEDS ORDERED: ASPIRIN 81 MG TAB.CHEW PO SCH (09:00)
[2019-03-12 11:00] VITALS: BP 129/73
[2019-03-12 15:32] VITALS: BP 134/86
--- NOTE | 2019-03-12 22:45 | DS ---
DATE OF DISCHARGE: 03/12/2019 HOSPITAL COURSE: The patient is an 83-year-old female patient who was admitted with recurrent falls and generalized weakness. She actually fell and hit her head and had a CT scan, which showed no acute process. All her lab works were within acceptable range. She has no evidence of any urinary tract infection and her hemoglobin and hematocrit have been stable. She was evaluated by the physical therapist and it was felt that the patient would benefit from rehabilitation, and therefore, she was discharged to [facility] to continue the process of rehabilitation there. PHYSICAL EXAMINATION: GENERAL: When I saw her this afternoon, she looked well and was clearly in no apparent respiratory distress, somewhat pale. No jaundice, cyanosis or thyromegaly. No jugular venous distension. No lower limb edema. VITAL SIGNS: Her heart rate was 82, blood pressure was 129/73, temperature was 97.9, respiratory rate was 16, and oxygen saturation was 94%. HEAD, EYES, EARS, NOSE AND THROAT: Showed normocephalic, atraumatic. NECK: Supple. HEART: Showed normal first and second heart sounds with no gallop or murmur. CHEST: Clear to auscultation. No crepitation or rhonchi. ABDOMEN: Distended, soft, nontender. NEUROLOGIC: She is demented, but without any obvious lateralizing sign. All her cranial nerves intact. She moves extremities without difficulty. She ambulates with a walker. Her intake over the last 24 hours was 1300, output was 800. LABORATORY DATA: Her most recent lab work showed a white cell count 5600, hemoglobin 11.3, hematocrit 34, MCV 92, and platelet count of 185,000. Her chemistry showed a serum sodium 142, potassium 3.8, chloride 105, bicarbonate 29, anion gap of 8, BUN 22, creatinine 1, estimated GFR was 52 mL per minute. Her glucose 142, calcium was 9.3, magnesium was 2. TSH was normal at 0.802. Urinalysis was unremarkable. DISCHARGE MEDICATIONS: She was discharged to [facility] to continue on aspirin 81 mg once a day, Protonix 40 mg daily, venlafaxine for Effexor XR 75 mg once a day, Lac-Hydrin applied topically twice a day for dry skin, cetirizine 10 mg once a day, hydrochlorothiazide 12.5 mg once a day, atenolol 25 mg daily, potassium chloride 20 mEq daily with breakfast, triamcinolone acetonide applied topically 3 times a day, tramadol 50 mg every 4 hours and alprazolam 0.25 mg 3 times a day as needed for anxiety. FINAL DISCHARGE DIAGNOSES: 1. Recurrent falls with mild concussion, contusion to the head. 2. Anemia of chronic disease. 3. Hyperglycemia. PLAN: Plan is to discharge to [facility] to continue the process of rehabilitation. LIAM PARKS MD DR: AGUILAR/rachel JOB#: [id number] / [id number]
== END 2019-03-12 17:45 | DRG 605 ==
LOC: ER 19:00 → 1 SOUTH 19:45
PROVIDERS: ADMIT Family Medicine; ATTEND Internal Medicine
DX: S00.93XA Contusion of unspecified part of head, initial encounter (principal); I67.2 Cerebral atherosclerosis; R73.9 Hyperglycemia, unspecified; J43.9 Emphysema, unspecified; I10 Essential (primary) hypertension; M19.90 Unspecified osteoarthritis, unspecified site; R29.6 Repeated falls; D63.8 Anemia in other chronic diseases classified elsewhere; F03.90 Unspecified dementia, unspecified severity, without behavioral disturbance, psychotic disturbance, mood disturbance, and anxiety; F32.9 Major depressive disorder, single episode, unspecified; W18.30XA Fall on same level, unspecified, initial encounter; Y93.89 Activity, other specified; Y92.89 Other specified places as the place of occurrence of the external cause; Y99.8 Other external cause status; Z88.2 Allergy status to sulfonamides; Z88.8 Allergy status to other drugs, medicaments and biological substances; Z86.73 Personal history of transient ischemic attack (TIA), and cerebral infarction without residual deficits; Z98.51 Tubal ligation status; Z79.01 Long term (current) use of anticoagulants; Z83.3 Family history of diabetes mellitus; Z84.1 Family history of disorders of kidney and ureter; Z80.3 Family history of malignant neoplasm of breast; Z82.49 Family history of ischemic heart disease and other diseases of the circulatory system
CPT/HCPCS: 36415; 70450; 71045; 80048; 80053; 81001; 83735; 84443; 84484; 85025; 87086; 93005; 97110; 97530; 97535; 99285-25

== ENCOUNTER 2019-04-23 18:21 | Inpatient (IN) | payer MEDICARE ==
[~2019-04-23] VITALS: Ht 146.1 cm; Wt 66.9 kg
[~2019-04-23 18:21] MED LIST changes: +PANT40TA5 PO; +VENL75CA6 PO
--- NOTE | 2019-04-23 18:29 | PHYS DOC ---
Past History Past Medical History: Arthritis, COPD, Depression, Hypertension, TIA, Other Past Surgical History: Tubal ligation, Other Additional Past Surgical Histo: cataract surgery Smoking: Non-smoker Alcohol Use: None Drug Use: None Adult General Chief Complaint Chief Complaint: MULTIPLE COMPLAINTS.. I just got out of [facility].. I fell and had a head injury.. I am at my daughters now the last 3 days... She felt it was not doing well and said I needed to get checked out"... HPI HPI Patient is a 83 year old female who presents with above hx increased weakness last 3 days. Patient discharged from [facility] 3 days ago. Since discharge patient has been living with her daughter, Pt. reported has had developed increased weakness the last three days. . No recent changes in meds. Patient has had no recent travel or specific ill contacts. Has somewhat extensive medical history with hypertension, COPD, arthritis, TIA, anxiety, depression, dementia, arthritis. And recent concussion. Patient was [facility] after a head injury/concussion. Patient is still having problems with gait disorder. Still has residual ecchymosis on right side of head. Patient normally follows with Dr. Woodson. Review of Systems Review of Systems Constitutional: Denies fever or chills [] Eyes: Denies change in visual acuity, redness, or eye pain [] HENT: Denies nasal congestion or sore throat [] Respiratory: Denies cough or shortness of breath [] Cardiovascular: No additional information not addressed in HPI [] GI: Denies abdominal pain, nausea, vomiting, bloody stools or diarrhea [] : Denies dysuria or hematuria [] Musculoskeletal: History of chronic back pain or joint pain [. Patient has]complaints of increased weakness Integument: Denies rash or skin lesions [] Neurologic: Denies headache, focal weakness or sensory changes [] Endocrine: Denies polyuria or polydipsia [] All other systems were reviewed and found to be within normal limits, except as documented in this note. Family History Family History Not currently available Current Medications Current Medications See nursing for home medications Allergies Allergies Allergies Coded Allergies Type Severity Reaction Last Updated Verified Sulfa (Sulfonamide Antibiotics) Allergy Intermediate Hives 10/17/13 Yes promethazine Allergy Intermediate Hives 10/17/13 Yes Physical Exam Physical Exam Constitutional: , no acute distress, non-toxic appearance. [] HENT: Normocephalic, ecchymosis right side of head from previous injury, bilateral external ears normal, oropharynx moist, no oral exudates, nose normal. [] Eyes: PERRLA, EOMI, conjunctiva normal, no discharge. [] Neck: Normal range of motion, no tenderness, supple, no stridor. [] Cardiovascular:Heart rate regular rhythm, no murmur []PMI to the left Lungs & Thorax: Bilateral breath sounds clear to auscultation [] Abdomen: Bowel sounds normal, soft, no tenderness, no masses, no pulsatile masses. Obese. Skin: Warm, dry, no erythema, no rash. [] Back: No tenderness, no CVA tenderness. [] Extremities: No tenderness, no cyanosis, no clubbing, ROM intact, no edema. [] Chronic joint tenderness and arthritis Neurologic: Alert and oriented X 3, with extremities on request, has distal, no new focal deficits noted per family. Psychologic: Affect anxious, judgement appears impaired, mood depressed EKG EKG I interpretation EKG shows a sinus rhythm at 74 bpm. Leftward axis. No findings acute STEMI with contralateral changes.[] Radiology/Procedures Radiology/Procedures [address] [address] IMAGING REPORT Signed PATIENT: SIDNEY STANTON ACCOUNT: [id number] : 1935 LOCATION: ER AGE: 83 SEX: F EXAM STATUS: REG ER ORD. PHYSICIAN: CHARO CONNELLY MD REASON: weakness PROCEDURE: PORTABLE CHEST 1V Chest AP portable at 1842: Reason for examination: Weakness. Comparison is made to previous study dated 03/09/2019. The heart size is normal. Mediastinum is unremarkable. Lung montilla are clear. No acute bony abnormalities are seen. IMPRESSION: No acute cardiopulmonary disease evident. Electronically signed by: Guillermina Vela MD (04/23/2019 9:10 PM) [place] [id number] DICTATED AND SIGNED BY: GUILLERMINA VELA MD DATE: 04/23/192109 CC: MARTINE WOODSON MD; CHARO CONNELLY MD ~ [][address] [id number] IMAGING REPORT Signed PATIENT: SIDNEY STANTON ACCOUNT: [id number] : 1935 LOCATION: ER AGE: 83 SEX: F EXAM STATUS: REG ER ORD. PHYSICIAN: CHARO CONNELLY MD REASON: Hx. of prior fall and concussion, increased weakness PROCEDURE: CT HEAD AND CERVICAL SPINE WO CT Head W/O Contrast: History: Also confusion and increased weakness Comparison: none Axial images were obtained without contrast. There is moderate diffuse atrophy. There is no mass effect, extraaxial fluid collections or hydrocephalus. There is no focal loss of lee-white matter distinction to suggest acute ischemia, i.e. stroke. Impression: No acute findings. CT C-Spine without contrast: Clinical History: Technique: Axial helical images of the cervical spine were obtained without contrast, axial coronal and sagittal reconstruction was performed. Findings: There is no loss of vertebral body stature. There is no prevertebral soft tissue swelling. The vertebral bodies are well aligned. The C1-C2 relationship is normal. The visualized osseous structures appear normal. Evaluation of the central canal is limited without contrast. There is multiple posterior disc bulges resulting in flattening of the thecal sac. There does not appear to be gross flattening of the cervical cord. There is moderate narrowing of multiple neuroforamen. Impression: No acute findings. Clinical correlation suggested. PQRS Compliance Statement: One or more of the following individualized dose reduction techniques were utilized for this examination: 1. Automated exposure control 2. Adjustment of the mA and/or kV according to patient size 3. Use of iterative reconstruction technique Electronically signed by: Ernie Butts III, MD (04/23/2019 7:23 PM) [facility] DICTATED AND SIGNED BY: ERNIE BUTTS III, MD DATE: 04/23/191922 CC: MARTINE WOODSON MD; CHARO CONNLELY MD ~ Course & Med Decision Making Course & Med Decision Making Pertinent Labs and Imaging studies reviewed. (See chart for details) Patient admitted to Dr. Woodson with consult to neurology. We will treat urinary tract infection. Impression: 1. Weakness 2. Hx. Concussion- Had Rehab, now home 3 days 3. UTI 4. Elev. D-dimer 0.86 5. Elev. Bun /Cret. 22/1.1 6. Deconditioned. 7. Gait Disorder [] Dragon Disclaimer Dragon Disclaimer This electronic medical record was generated, in whole or in part, using a voice recognition dictation system. Departure Departure: Disposition: 01 HOME/RESIDENCE PRIOR TO ADM Condition: STABLE Referrals: MARTINE WOODSON MD (PCP) Dragon Disclaimer This chart was dictated in whole or in part using Voice Recognition software in a busy, high-work load, and often noisy Emergency Department environment. It may contain unintended and wholly unrecognized errors or omissions. Dragon Disclaimer This chart was dictated in whole or in part using Voice Recognition software in a busy, high-work load, and often noisy Emergency Department environment. It may contain unintended and wholly unrecognized errors or omissions. CHARO CONNELLY MD Apr 23, 2019 18:29
[2019-04-23] MEDS ORDERED: IV RINGERS SOLUTION,LACTATED 1,000 ML IV SCH (18:30)
--- NOTE | 2019-04-23 19:26 | RAD ---
CT Head W/O Contrast: History: Also confusion and increased weakness Comparison: none Axial images were obtained without contrast. There is moderate diffuse atrophy. There is no mass effect, extraaxial fluid collections or hydrocephalus. There is no focal loss of lee-white matter distinction to suggest acute ischemia, i.e. stroke. Impression: No acute findings. CT C-Spine without contrast: Clinical History: Technique: Axial helical images of the cervical spine were obtained without contrast, axial coronal and sagittal reconstruction was performed. Findings: There is no loss of vertebral body stature. There is no prevertebral soft tissue swelling. The vertebral bodies are well aligned. The C1-C2 relationship is normal. The visualized osseous structures appear normal. Evaluation of the central canal is limited without contrast. There is multiple posterior disc bulges resulting in flattening of the thecal sac. There does not appear to be gross flattening of the cervical cord. There is moderate narrowing of multiple neuroforamen. Impression: No acute findings. Clinical correlation suggested. PQRS Compliance Statement: One or more of the following individualized dose reduction techniques were utilized for this examination: 1. Automated exposure control 2. Adjustment of the mA and/or kV according to patient size 3. Use of iterative reconstruction technique Electronically signed by: Earle Hendrix III, MD (04/23/2019 7:23 PM) [facility]
[2019-04-23 20:17] LABS: BASO % 0 % (0-3); EOS # 0.2 x10^3/uL (0.0-0.7); EOS % 3 % (0-3); HEMATOCRIT 37.7 % (36.0-47.0); HEMOGLOBIN 12.5 g/dL (12.0-15.5); LYMPH # 1.4 x10^3/uL (1.0-4.8); LYMPH % 19 % (24-48); MEAN CORPUSCULAR HEMOGLOBIN 31 pg (25-35); MEAN CORPUSCULAR HGB CONC 33 g/dL (31-37); MEAN CORPUSCULAR VOLUME 92 fL (79-100); MONO # 0.9 x10^3/uL (0.0-1.1); MONO % 12 % (0-9); NEUT % 66 % (31-73); PLATELET COUNT 219 x10^3/uL (140-400); RED BLOOD COUNT 4.09 x10^6/uL (3.50-5.40); RED CELL DISTRIBUTION WIDTH 13.6 % (11.5-14.5); WHITE BLOOD COUNT 7.6 x10^3/uL (4.0-11.0)
[2019-04-23 20:28] LABS: CALCIUM 9.9 mg/dL (8.5-10.1); CREATININE 1.1 mg/dL (0.6-1.0); GFR 47.2; POTASSIUM 3.9 mmol/L (3.5-5.1)
[2019-04-23 20:41] LABS: ALBUMIN 3.5 g/dL (3.4-5.0); DIRECT BILIRUBIN 0.1 mg/dL (0.0-0.2); MAGNESIUM 2.1 mg/dL (1.8-2.4); TOTAL BILIRUBIN 0.5 mg/dL (0.2-1.0); TOTAL PROTEIN 8.3 g/dL (6.4-8.2)
[2019-04-23 20:44] LABS: BARBITURATES NEG (NEG); BENZODIAZEPINES POS (NEG); CANNABINOIDS NEG (NEG); COCAINE NEG (NEG); METHADONE NEG (NEG); OPIATES NEG (NEG); PHENCYCLIDINE NEG (NEG)
[2019-04-23 20:46] LABS: BILIRUBIN,URINE NEG (NEG); CLARITY,URINE TURBID; COLOR,URINE YELLOW; GLUCOSE,URINE NEG (NEG); UROBILINOGEN,URINE 0.2 mg/dL (0.2 mg/dL)
[2019-04-23 20:47] LABS: BACTERIA,URINE MANY /HPF (0-FEW); NITRITE,URINE POS (NEG); SQUAMOUS EPITHELIAL CELL,UR FEW /LPF; WBC,URINE >40 /HPF (0-4)
[2019-04-23 20:55] LABS: AMPHETAMINE/METHAMPHETAMINE NEG (NEG)
--- NOTE | 2019-04-23 21:13 | RAD ---
Chest AP portable at 1842: Reason for examination: Weakness. Comparison is made to previous study dated 03/09/2019. The heart size is normal. Mediastinum is unremarkable. Lung montilla are clear. No acute bony abnormalities are seen. IMPRESSION: No acute cardiopulmonary disease evident. Electronically signed by: Guillermina Barbosa MD (04/23/2019 9:10 PM) [id number]
[2019-04-23] MEDS: IV RINGERS SOLUTION,LACTATED 1,000 ML IV SCH (21:30)
[2019-04-23] MEDS ORDERED: ACETAMINOPHEN 325 MG TABLET PO PRN (21:30)
[2019-04-23] MEDS ORDERED: ONDANSETRON PF 4 MG/2 ML VIAL. IV PRN (21:30)
[2019-04-23 21:35] LABS: INFLUENZA A PATIENT NEGATIVE (NEGATIVE); INFLUENZA B PATIENT NEGATIVE (NEGATIVE)
[2019-04-23 21:40] LABS: SEDIMENTATION RATE 51 (0-25)
[2019-04-23] MEDS ORDERED: cefTRIAXone SODIUM 1 GM VIAL ONE (21:43)
[2019-04-23] MEDS ORDERED: IV NORMAL SALINE 50ML 50 ML ONE (21:43)
[2019-04-23] MEDS ORDERED: ENOXAPARIN ** NOTE DOSE ** SYRINGE SQ ONE (22:00)
[2019-04-24] VITALS (7 sets, daily range): BP systolic 107–148; BP diastolic 65–74
--- NOTE | 2019-04-24 01:14 | EKG ---
[address] [address] Test Date: 2019-04-23 Test Time: 18:44:16 Pat Name: SIDNEY STANTON Department: Room: Gender: F Rn Flight: : 1935 Requested By: CHARO CONNELLY Order Number: [id number] Reading MD: Measurements Intervals [place] Rate: 74 P: 64 NH: 182 QRS: -3 QRSD: 72 T: 47 QT: 390 QTc: 433 Interpretive Statements SINUS RHYTHM LEFTWARD AXIS NO SPECIFIC ECG ABNORMALITIES RI6.01 No previous ECG available for comparison
[2019-04-24] MEDS: IV RINGERS SOLUTION,LACTATED 1,000 ML IV SCH ×4 (03:45→22:30)
[2019-04-24] MEDS ORDERED: MAGN250T10 PO (06:11)
[2019-04-24] MEDS ORDERED: ZINC50TA39 PO (06:11)
[2019-04-24] MEDS ORDERED: CALC500T54 PO (06:11)
[2019-04-24] MEDS ORDERED: DIPH25TA24 PO (06:13)
[2019-04-24 07:08] LABS: CALCIUM 9.3 mg/dL (8.5-10.1); CREATININE 0.9 mg/dL (0.6-1.0); GFR 59.5; POTASSIUM 3.6 mmol/L (3.5-5.1)
[2019-04-24 07:45] LABS: BASO % 0 % (0-3); EOS # 0.2 x10^3/uL (0.0-0.7); EOS % 3 % (0-3); HEMATOCRIT 34.8 % (36.0-47.0); HEMOGLOBIN 11.6 g/dL (12.0-15.5); LYMPH # 1.4 x10^3/uL (1.0-4.8); LYMPH % 24 % (24-48); MEAN CORPUSCULAR HEMOGLOBIN 31 pg (25-35); MEAN CORPUSCULAR HGB CONC 33 g/dL (31-37); MEAN CORPUSCULAR VOLUME 92 fL (79-100); MONO # 0.7 x10^3/uL (0.0-1.1); MONO % 13 % (0-9); NEUT # 3.5 x10^3uL (1.8-7.7); NEUT % 61 % (31-73); PLATELET COUNT 169 x10^3/uL (140-400); RED BLOOD COUNT 3.79 x10^6/uL (3.50-5.40); RED CELL DISTRIBUTION WIDTH 13.4 % (11.5-14.5); WHITE BLOOD COUNT 5.7 x10^3/uL (4.0-11.0)
[2019-04-24] MEDS ORDERED: IOHEXOL 350 MG/ML 100 ML VIAL. IV ONE (08:45)
[2019-04-24] MEDS ORDERED: ASPIRIN 81 MG TAB.CHEW PO SCH ×2 (09:00→10:30)
[2019-04-24] MEDS ORDERED: traMADol 50 MG TABLET PO PRN (09:00)
[2019-04-24] MEDS ORDERED: POTASSIUM CHLORIDE 20 MEQ TABLET.ER. PO SCH (09:00)
[2019-04-24] MEDS ORDERED: TRIAMCINOLONE ACETONIDE TP PRN (09:00)
--- NOTE | 2019-04-24 10:21 | RAD ---
EXAM: Carotid Doppler sonogram. HISTORY: Dizziness. Altered mental status. TECHNIQUE: Lantigua scale and color Doppler sonographic evaluation of the neck with spectral waveform analysis was performed and static images are submitted for review. FINDINGS: There is mild atherosclerotic plaque within the carotid bulbs and left common carotid artery. The peak systolic velocity within the right common carotid artery is 216 cm/sec. The peak systolic velocity within the right internal carotid artery is 91 cm/sec and the end diastolic velocity within the right internal carotid artery is 23 cm/sec. The right ICA/CCA ratio is 0.42. The peak systolic velocity within the left common carotid artery is 132 cm/sec. The peak systolic velocity within the left internal carotid artery is 104 cm/sec and the end diastolic velocity within the left internal carotid artery is 25 cm/sec. The left ICA/CCA ratio is 0.78. There is normal antegrade flow within both vertebral arteries. IMPRESSION: 1. Elevated peak systolic velocity within the right common carotid artery, suggesting minimally significant stenosis. 2. No Doppler evidence of greater than 50% stenosis involving the bilateral internal carotid arteries or hemodynamically significant stenosis involving the vertebral arteries. PQRS Compliance Statement - Stenosis calculations for CT, MR and conventional angiography are based upon measurement of the distal ICA diameter in accordance with the NASCET methodology. Stenosis calculations for carotid ultrasound studies are derived from validated velocity criteria which are known to correlate with the NASCET methodology. Electronically signed by: Rosemarie Jimenez MD (04/24/2019 10:18 AM) [facility] [place]
[2019-04-24] MEDS ORDERED: CALCIUM CARBONATE 500 MG TABLET PO SCH (10:30)
[2019-04-24] MEDS: VENLAFAXINE XR 37.5 MG CAP.ER.24H. PO SCH (10:55)
[2019-04-24] MEDS: POTASSIUM CHLORIDE 20 MEQ TABLET.ER. PO SCH (10:55)
[2019-04-24] MEDS: ATENOLOL 50 MG TABLET PO SCH (10:55)
[2019-04-24] MEDS: hydroCHLOROthiazide 12.5 MG CAPSULE PO SCH (10:55)
[2019-04-24] MEDS: MAGNESIUM OXIDE 400 MG TABLET PO SCH (10:55)
[2019-04-24] MEDS: diphenhydrAMINE HCL 25 MG CAPSULE PO SCH (10:56)
[2019-04-24] MEDS: CALCIUM CARBONATE 500 MG TAB.CHEW PO SCH (10:56)
--- NOTE | 2019-04-24 11:10 | RAD ---
EXAM: Bilateral lower extremity venous Doppler sonogram. HISTORY: Pain and swelling. TECHNIQUE: Lantigua scale and color Doppler sonographic evaluation of the bilateral lower extremity veins with spectral waveform analysis was performed. FINDINGS: There is normal color flow, normal compressibility and there are normal spectral waveforms in the common femoral, superficial femoral, popliteal, posterior tibial and greater saphenous veins. IMPRESSION: No Doppler evidence of lower extremity deep venous thrombosis. Electronically signed by: Rosemarie Jimenez MD (04/24/2019 11:07 AM) [facility] [place]
[2019-04-24] MEDS ORDERED: IPRATRPIUM/ALBUTEROL 0.5/2.5MG 3 ML NEBU. NEB PRN (11:15)
--- NOTE | 2019-04-24 12:16 | RAD ---
EXAM: CT ANGIOGRAPHY OF THE CHEST WITH AND WITHOUT CONTRAST. HISTORY: Shortness of breath, elevated d-dimer. TECHNIQUE: Computed tomographic angiography of the chest was performed before and after the intravenous administration of iodinated contrast. 3-D maximum intensity projections were also performed. COMPARISON: 09/15/2009. FINDINGS: Images of the upper abdomen reveal a small hiatal hernia. There is nonfocal wall thickening of the distal esophagus. Bone windows reveal no suspicious lesions. No pulmonary emboli are identified. There is no aortic dissection or aneurysm. There are no pathologically enlarged mediastinal or axillary lymph nodes. There is no pleural or pericardial effusion. The heart is not enlarged. There is intrathoracic extension of a right thyroid goiter. An intrathoracic nodule originating from the posterior aspect of the right thyroid lobe measures 2.9 x 2.2 cm. Pleural-parenchymal scarring in the medial aspect of both upper lobes is chronic and has decreased since the prior study. Branching nodular infiltrates posteriorly in the left upper lobe are also chronic. Scattered foci of subpleural scarring bilaterally are also chronic. IMPRESSION: 1. No pulmonary embolism. 2. Subpleural scarring and scattered nodular infiltrates have been present chronically and likely reflect scarring in the setting of a remote inflammatory or infectious process. 3. Small hiatal hernia. Distal esophageal wall thickening suggests esophagitis. 4. A small intrathoracic right thyroid goiter has been stable chronically. *One or more of the following individualized dose reduction techniques were utilized for this examination: 1. Automated exposure control. 2. Adjustment of the mA and/or kV according to patient size. 3. Use of iterative reconstruction technique. Electronically signed by: Zonia Parada MD (04/24/2019 12:13 PM) [facility]
--- NOTE | 2019-04-24 12:23 | HP ---
ADMIT DATE: 04/23/2019 HISTORY OF PRESENT ILLNESS: An 83-year-old female I believe lives out at [place]. The patient has been having problems with falling. She hit her head. She was unable to stand. The patient has generalized weakness for the last 3 days in a residential. She has been getting progressively worse with multiple falls. The patient otherwise still has a little bit of dementia. The patient was admitted because of her falls, hitting her head, generalized weakness and other material facts as they become available. PAST MEDICAL HISTORY: Includes cataracts, hearing loss, dementia, emphysema, pneumonia, tubal ligation, multiple urinary tract infections secondary to incontinence, urinary urgency, pain on urination, psychiatric impression of severe depression. IMMUNIZATIONS: Tetanus, influenza, pneumococcal all up-to-date. FAMILY HISTORY: The patient has a family history of diabetes. The mother has diabetes, breast cancer and gallbladder problems. The father had history of kidney disease and coronary artery disease. ALLERGIES: She has an allergy to SULFUR. HOME MEDICATIONS: The patient's home medications in the reconciliation situation include diphenhydramine, which may be discontinued. Atenolol 50 mg a day, aspirin 81, tramadol 50, Effexor 75 mg, Xanax 0.25, calcium carbonate, potassium chloride, zinc 50, Dyazide, hydrochlorothiazide 12.5, magnesium oxide 250, triamcinolone cream. SOCIAL HISTORY: The patient denies smoking, alcohol or drug use. Apparently is a full code. REVIEW OF SYSTEMS: The patient does have a mild headache, but other than that denies any blurred vision, double vision. Denies any problems with swallowing. Denies any problems with breathing. Denies chest pain, shortness of breath, abdominal pain, nausea, vomiting, melena, hematochezia, hematemesis. Generalized weakness, maybe a little balance difficulties and some mild memory loss. OBJECTIVE: VITAL SIGNS: Blood pressure 148/69, respiratory rate 20, pulse 80, afebrile. HEENT: The patient's head was atraumatic, normocephalic. Eyes were PERRLA, EOMI. Sclerae clear. The mouth and throat were normal. NECK: Supple, no JVD or thyromegaly. LUNGS: Diminished throughout, but clear. CARDIOVASCULAR: Regular sinus rhythm, S1, S2. ABDOMEN: Soft, nontender, no rebound or guarding. Positive bowel sounds, no hepatosplenomegaly. EXTREMITIES: No clubbing, cyanosis, nor edema. NEUROLOGIC: The patient was alert and oriented x 2. The patient's short term memory is somewhat adjusted. LABORATORY DATA: Sodium and potassium 140 and 3.6 and 18 and 0.9 with a blood sugar of 110 on average, and protein normal, hemoglobin 11.6 and 34. The patient otherwise seems to be resting fairly comfortably there, did have a real bad large amount of situation with her urine containing 40 white blood cells per high powered field. Lab is pending ____ on the urine culture as is her thyroid and other than that, the patient seems to be making good progress overall. The patient is on Rocephin until we can get the final culture report back and make further evaluation on her as indicated. IMPRESSION: Multiple falls, urinary tract infection, systemic inflammatory response syndrome, dementia, generalized weakness, failure to thrive. PLAN: As above. MARTINE WOODSON MD DR: ANNIKA/rachel JOB#: [id number] / [id number]
[2019-04-24] MEDS: guaiFENesin DM 200MG/20MG 10 ML SYRUP PO PRN (18:00)
[2019-04-24] MEDS ORDERED: IPRATRPIUM/ALBUTEROL 0.5/2.5MG 3 ML NEBU. NEB SCH (21:30)
--- NOTE | 2019-04-25 02:00 | CONS ---
DATE OF CONSULTATION: NEURO CONSULTATION REFERRING PHYSICIAN: Dr. Anderson. REASON FOR CONSULTATION: Frequent falls and generalized weakness. HISTORY OF PRESENT ILLNESS: This is an 83-year-old right-handed female, who was recently discharged from [place] after she stayed there for 3 weeks and had rehabilitation after she sustained a fall before and has had frequent falls. The patient has been living with her daughter at home in the last 3 days. She denies any recent falls, however, from ER note that the patient sustained a fall at home. The patient did not recall the fall. Today, she complains of generalized weakness and difficulty to walk. According to the patient, she was doing well in the assisted when she had continuous physical therapy. She denies headaches, visual disturbances, nausea, vomiting, chest pain, shortness of breath or palpitation, dysarthria or dysphagia. Initial nonenhanced head CT scan revealed no evidence of acute intracranial process. Initial CT scan of the cervical spine revealed no evidence of acute changes or fracture. PAST MEDICAL HISTORY: Significant for cataracts, bilateral hearing loss, TIA, dementia, COPD, urinary tract infections with urinary incontinence, generalized arthritis, depressions. PAST SURGICAL HISTORY: Positive for tubal ligation. FAMILY HISTORY: Mother had diabetes mellitus, breast cancer and gallbladder problem. Father had history of kidney disease and coronary artery disease. SOCIAL HISTORY: The patient denies smoking, alcohol drinking, or illicit drug use. CURRENT HOME MEDICATIONS: Alprazolam 0.25 mg p.r.n. for anxiety, aspirin 81 mg daily, atenolol 50 mg daily, calcium ____ mg chewable daily, hydrochlorothiazide 12.5 mg p.o. daily, magnesium oxide, potassium chloride 20 mEq daily, tramadol 50 mg q. 4 hours p.r.n. for pain. ALLERGIES: SULFA DRUGS AND PROMETHAZINE. REVIEW OF SYSTEMS: A 10-point review of system was performed as mentioned above in history of present illness, otherwise unremarkable. PHYSICAL EXAMINATION: GENERAL: Well-developed, well-nourished female in no acute distress. She weighs 68.2 kilos. VITAL SIGNS: Blood pressure 109/70, respiratory rate 20, pulse is 80 and regular, oxygen saturation 96% on room air, temperature 97.2. HEENT: Normocephalic, atraumatic, otherwise unremarkable. NECK: Supple. Negative for carotid bruit, lymphadenopathy or thyromegaly. LUNGS: Clear to A and P. CARDIOVASCULAR: Regular rate and rhythm, normal S1, S2. ABDOMEN: Soft. Bowel sounds positive. EXTREMITIES: Negative for cyanosis, clubbing or edema. NEUROLOGICAL EXAMINATION: Mental status: The patient is alert and oriented x 3. Speech is fluent. There is no language dysfunction. Memory, judgment, and abstracting thinking are fair. The patient denies hallucination or delusion. CRANIAL NERVES: Visual montilla are full. The pupils are reactive to light and accommodation. The extraocular movements are intact. There is no nystagmus. There is no facial motor or sensory deficit. Hearing is diminished bilaterally. The palate is elevated symmetrically. Sternocleidomastoid muscles are powerful bilaterally. The patient shrugs her shoulders symmetrically, protrudes her tongue in the midline without fasciculation or atrophy. MOTOR: No focal muscle bulk was seen. The tone is normal. The strength is 4/5 throughout. SENSORY: Examination revealed normal pinprick, light touch, vibratory and position senses. Deep tendon reflexes were asymmetric and hypoactive at 20/4 throughout. GAIT: The stance is unsteady. The patient uses a walker with assistance. DIAGNOSTIC DATA: Nonenhanced head CT scan revealed no evidence of acute intracranial process. CT scan of the cervical spine revealed no evidence of acute process, fracture or dislocation. Venous Doppler study of the lower extremities revealed no evidence of DVTs. A chest x-ray revealed no evidence of acute cardiopulmonary process and chest CT angiogram revealed no evidence of pulmonary embolism. LABORATORY DATA: CBC revealed white blood cells of 5700, hemoglobin 11.6, hematocrit 34.8, platelet count 169,000. Chemistry revealed sodium of 140, potassium 3.6, chloride 103, CO2 of 28, BUN 18, creatinine 0.9 and glucose 115, calcium 9.3. D-dimer is high at 0.86. Urinalysis revealed urinary tract infections with large urinary leukocyte esterase and white blood cells more than 40 along with many bacteria and positive for nitrite. Urine drug screen is negative. IMPRESSION: 1. Unsteady gait and generalized weakness, etiology likely deconditioning. 2. Multiple medical problems include chronic obstructive pulmonary disease, urinary tract infections, marked osteoarthritis, depression. RECOMMENDATIONS: 1. Continue with current home medication. 2. Physical therapy as tolerated and treat the underlying urinary tract infection. M Aure PRATER MD DR: Mukesh JOB#: [id number] / [id number]
[2019-04-25] MEDS: IV RINGERS SOLUTION,LACTATED 1,000 ML IV SCH (04:38)
[2019-04-25] MEDS: ALPRAZolam 0.25 MG TABLET PO PRN ×2 (04:38→23:29)
[2019-04-25] MEDS: guaiFENesin DM 200MG/20MG 10 ML SYRUP PO PRN ×2 (04:38→23:29)
[2019-04-25 05:10] VITALS: BP 132/59
[2019-04-25] MEDS: CALCIUM CARBONATE 500 MG TAB.CHEW PO SCH (07:48)
[2019-04-25] MEDS: VENLAFAXINE XR 37.5 MG CAP.ER.24H. PO SCH (07:53)
[2019-04-25] MEDS: diphenhydrAMINE HCL 25 MG CAPSULE PO SCH (07:53)
[2019-04-25] MEDS: ZINC SULFATE 220 MG CAPSULE. PO SCH (07:53)
[2019-04-25] MEDS: hydroCHLOROthiazide 12.5 MG CAPSULE PO SCH (07:53)
[2019-04-25] MEDS: MAGNESIUM OXIDE 400 MG TABLET PO SCH (07:53)
[2019-04-25] MEDS: ATENOLOL 50 MG TABLET PO SCH (07:54)
[2019-04-25] MEDS: POTASSIUM CHLORIDE 20 MEQ TABLET.ER. PO SCH (07:54)
[2019-04-25] MEDS: DICLOFENAC SODIUM 1% TOPICAL GEL 100GM TUBE. TP SCH ×4 (09:00→21:00)
[2019-04-25] MEDS ORDERED: IPRATRPIUM/ALBUTEROL 0.5/2.5MG 3 ML NEBU. ONE (09:45)
[2019-04-25] MEDS ORDERED: ZOLPIDEM 5 MG TABLET. PO PRN (09:45)
[2019-04-25] MEDS: IPRATRPIUM/ALBUTEROL 0.5/2.5MG 3 ML NEBU. NEB SCH ×2 (09:50→21:13)
[2019-04-25] MEDS: FUROSEMIDE 20 MG TABLET PO SCH (10:25)
[2019-04-25 11:02] VITALS: BP 137/79
[2019-04-25 15:09] VITALS: BP 136/77
[2019-04-25 19:28] VITALS: BP 137/80
[2019-04-25] MEDS: LACTOBACILLUS RHAMNOSUS GG 1 CAPSULE. PO SCH (21:04)
[2019-04-25] MEDS: rOPINIRole 1 MG TABLET. PO SCH (21:05)
[2019-04-25 22:53] VITALS: BP 135/82
[2019-04-26] MEDS: IPRATRPIUM/ALBUTEROL 0.5/2.5MG 3 ML NEBU. NEB SCH ×3 (05:57→20:22)
[2019-04-26 06:01] VITALS: BP 160/83
[2019-04-26] MEDS: POTASSIUM CHLORIDE 20 MEQ TABLET.ER. PO SCH (08:25)
[2019-04-26] MEDS: LACTOBACILLUS RHAMNOSUS GG 1 CAPSULE. PO SCH ×2 (08:25→20:20)
[2019-04-26] MEDS: VENLAFAXINE XR 37.5 MG CAP.ER.24H. PO SCH (08:25)
[2019-04-26] MEDS: CALCIUM CARBONATE 500 MG TAB.CHEW PO SCH (08:26)
[2019-04-26] MEDS: FUROSEMIDE 20 MG TABLET PO SCH (08:26)
[2019-04-26] MEDS: MAGNESIUM OXIDE 400 MG TABLET PO SCH (08:26)
[2019-04-26] MEDS: diphenhydrAMINE HCL 25 MG CAPSULE PO SCH ×2 (08:26→09:00)
[2019-04-26] MEDS: ZINC SULFATE 220 MG CAPSULE. PO SCH (08:26)
[2019-04-26] MEDS: DICLOFENAC SODIUM 1% TOPICAL GEL 100GM TUBE. TP SCH ×5 (08:27→20:23)
[2019-04-26] MEDS: ATENOLOL 50 MG TABLET PO SCH (08:27)
[2019-04-26] MEDS ORDERED: ASPIRIN 81 MG TAB.CHEW PO SCH (09:00)
[2019-04-26 09:01] LABS: CALCIUM 9.7 mg/dL (8.5-10.1); CREATININE 0.9 mg/dL (0.6-1.0); GFR 59.5
--- NOTE | 2019-04-26 09:37 | PN ---
DATE: 04/25/2019 SUBJECTIVE: The patient came in because she has been falling at home. She did have a significant urinary tract infection. She did have elevated sed rate of 51. Otherwise, she is feeling a little bit better today. We will get her with PT, OT tomorrow to help her with her mobilization and see if she is safe enough on that situation itself. As far as safety around the house, she normally uses a walker. OBJECTIVE: VITAL SIGNS: Blood pressure 136/77, respiratory rate 20, pulse 72, afebrile. The patient is more alert, still a little trouble with memory, but mild. LUNGS: Diminished, but clear. CARDIOVASCULAR: Regular sinus rhythm, S1, S2. ABDOMEN: Soft, nontender. NEUROLOGIC: Baseline for her. Dr. Starks has been kind enough to review her and make further evaluation and suggestions on her. Other than that, the patient is making good progress overall. IMPRESSION: Multiple falls, urinary tract infection, systemic inflammatory response syndrome, dementia, generalized weakness and failure to thrive. MARTINE WOODSON MD DR: ANNIKA/rachel JOB#: [id number] / [id number]
[2019-04-26 11:33] VITALS: BP 142/66
[2019-04-26 15:22] VITALS: BP 117/72
[2019-04-26 19:40] VITALS: BP 116/91
[2019-04-26] MEDS: rOPINIRole 1 MG TABLET. PO SCH (20:20)
[2019-04-26] MEDS: ALPRAZolam 0.25 MG TABLET PO PRN (20:20)
[2019-04-26 23:01] VITALS: BP 116/71
--- NOTE | 2019-04-27 01:04 | PN ---
DATE: SUBJECTIVE: An 83-year-old female came in with generalized weakness, multiple falls as noted earlier. The patient does have a significant urinary tract infection, being treated with IV antibiotic therapy. Otherwise, she is without complaint. OBJECTIVE: VITAL SIGNS: Blood pressure 110/72, respiratory rate 20, pulse 70, afebrile, oxygen saturation only 91%. GENERAL: The patient is alert. She is very tired. LUNGS: Diminished throughout, poor movement of air, but basically clear. CARDIOVASCULAR: Irregularly irregular. ABDOMEN: Soft, nontender. EXTREMITIES: No clubbing, cyanosis or edema. Negative Homans sign. NEUROLOGIC: Alert, some baseline dementia as well as hardness of hearing and will continue to be monitored carefully. Continue with PT, OT. PLAN: Continue with trying to stabilize her. Probably send her back to the nursing facility. IMPRESSION: Multiple falls, urinary tract infection, systemic inflammatory response syndrome, dementia, generalized weakness and failure to thrive. MARTINE WOODSON MD DR: ANNIKA/rachel JOB#: [id number] / [id number]
--- NOTE | 2019-04-27 02:09 | PN ---
DATE: 04/25/2019 SUBJECTIVE: The patient denies any new medical or neurological complaints. She complains of generalized weakness and joint pain. OBJECTIVE: GENERAL: Well-developed, well-nourished female, not in acute distress. VITAL SIGNS: Blood pressure 137/79, respiratory rate 20, pulse is 70, temperature 97.7, oxygen saturation 95% on room air. HEENT: Normocephalic, atraumatic, otherwise unremarkable. NECK: Supple. Negative for carotid bruit, lymphadenopathy or thyromegaly. LUNGS: Clear to A and P. CARDIOVASCULAR: Regular rate and rhythm. Normal S1, S2. ABDOMEN: Soft. Bowel sounds positive. EXTREMITIES: Negative for cyanosis, clubbing or pitting edema. NEUROLOGICAL EXAM: Normal mental status and intact cranial nerves. Memory intact. Motor: No focal muscle bulk was seen. The tone is normal. The strength is 4/5 throughout. Sensory examination revealed normal pinprick, light touch, vibratory and position senses. Deep tendon reflexes were symmetric and hypoactive with absent Achilles responses. Gait: The stance is unsteady. The patient uses a walker with assistance for ambulation. IMPRESSION: 1. Unsteady gait with generalized weakness. 2. Urinary tract infections. 3. Multiple medical problems include chronic obstructive pulmonary disease, marked osteoarthritis, and depression. RECOMMENDATIONS: 1. Continue with current management, initiated by Dr. Anderson. 2. PT/OT evaluation. The patient is neurologically stable. M Aure PRATER MD DR: PAULY/rachel JOB#: [id number] / [id number]
--- NOTE | 2019-04-27 02:16 | PN ---
DATE: 04/26/2019 SUBJECTIVE: The patient denies any new medical or neurological complaints. The patient has had dry cough. OBJECTIVE: GENERAL: Well-developed, well-nourished female, not in acute distress. VITAL SIGNS: Blood pressure 160/83, respiratory rate 20, pulse is 74, oxygen saturation 95% on room air, and temperature 97.2. HEENT: Normocephalic, atraumatic, otherwise unremarkable. NECK: Supple. Negative for carotid bruit, lymphadenopathy or thyromegaly. LUNGS: With diminished breath sounds. CARDIOVASCULAR: Regular rate and rhythm, normal S1, S2. ABDOMEN: Soft. Bowel sounds positive. EXTREMITIES: Negative for cyanosis, clubbing or edema. NEUROLOGICAL EXAM: Mental Status: The patient is alert and oriented x 3. The speech is fluent. There is no language dysfunction, otherwise unremarkable. Cranial nerves are intact. Motor examination: No focal muscle bulk was seen. The tone is normal. The strength is 4/5 throughout. Sensory examination revealed normal pinprick and light touch, vibratory and position senses. Deep tendon reflexes were symmetric and hypoactive with absent Achilles responses. Gait: The patient uses a walker for ambulation. LABORATORY DATA: Sodium is 138, potassium 4, chloride 102, CO2 of 27, BUN 18, creatinine 0.8, glucose 131 and calcium 9.7. IMPRESSION: 1. Recent fall secondary to generalized weakness. 2. Urinary tract infections. 3. Multiple medical problems include depression, osteoarthritis and chronic obstructive pulmonary disease. 4. Hypertension. RECOMMENDATIONS: 1. Continue with current management and medication. 2. Physical therapy. M Aure PRATER MD DR: PAULY/rachel JOB#: [id number] / [id number]
[2019-04-27] MEDS: IPRATRPIUM/ALBUTEROL 0.5/2.5MG 3 ML NEBU. NEB SCH ×2 (05:14→10:25)
[2019-04-27 05:38] VITALS: BP 135/93
[2019-04-27] MEDS: FUROSEMIDE 20 MG TABLET PO SCH (07:47)
[2019-04-27] MEDS: VENLAFAXINE XR 37.5 MG CAP.ER.24H. PO SCH (07:47)
[2019-04-27] MEDS: ZINC SULFATE 220 MG CAPSULE. PO SCH (07:47)
[2019-04-27] MEDS: POTASSIUM CHLORIDE 20 MEQ TABLET.ER. PO SCH (07:48)
[2019-04-27] MEDS: LACTOBACILLUS RHAMNOSUS GG 1 CAPSULE. PO SCH (07:48)
[2019-04-27] MEDS: CALCIUM CARBONATE 500 MG TAB.CHEW PO SCH (07:48)
[2019-04-27] MEDS: MAGNESIUM OXIDE 400 MG TABLET PO SCH (07:48)
[2019-04-27] MEDS: ATENOLOL 50 MG TABLET PO SCH (07:49)
[2019-04-27] MEDS: DICLOFENAC SODIUM 1% TOPICAL GEL 100GM TUBE. TP SCH ×2 (07:49→13:00)
[2019-04-27] MEDS: diphenhydrAMINE HCL 25 MG CAPSULE PO SCH ×2 (07:49→07:50)
[2019-04-27 10:59] VITALS: BP 98/65
[2019-04-27] MEDS ORDERED: DICL100G18 TP (13:35)
[2019-04-27] MEDS ORDERED: FURO20TA3 PO (13:35)
[2019-04-27] MEDS ORDERED: ROPI1TAB2 PO (13:35)
[2019-04-27] MEDS ORDERED: CEPH500C PO (13:35)
[2019-04-27] MEDS ORDERED: GUAI600T47 PO (13:35)
[2019-04-27] MEDS ORDERED: GUAI5SYR PO (13:35)
[2019-04-27] MEDS ORDERED: LACT1CAP19 PO (13:35)
== END 2019-04-27 14:25 | disposition home or self-care (01) | DRG 872 ==
LOC: ER 18:21 → 1 SOUTH 19:30
PROVIDERS: ADMIT Family Medicine; ATTEND Family Medicine
DX: A41.9 Sepsis, unspecified organism (principal); N39.0 Urinary tract infection, site not specified; R62.7 Adult failure to thrive; M19.90 Unspecified osteoarthritis, unspecified site; I10 Essential (primary) hypertension; Z86.73 Personal history of transient ischemic attack (TIA), and cerebral infarction without residual deficits; F32.9 Major depressive disorder, single episode, unspecified; Z98.51 Tubal ligation status; J43.9 Emphysema, unspecified; F41.9 Anxiety disorder, unspecified; Z88.2 Allergy status to sulfonamides; Z88.8 Allergy status to other drugs, medicaments and biological substances; H91.93 Unspecified hearing loss, bilateral; F03.90 Unspecified dementia, unspecified severity, without behavioral disturbance, psychotic disturbance, mood disturbance, and anxiety; Z82.49 Family history of ischemic heart disease and other diseases of the circulatory system; Z79.899 Other long term (current) drug therapy; Z83.3 Family history of diabetes mellitus; Z79.82 Long term (current) use of aspirin; Z87.440 Personal history of urinary (tract) infections; Z68.31 Body mass index [BMI] 31.0-31.9, adult
CPT/HCPCS: 36415; 70450; 71045; 71275; 72125; 80048; 80076; 80307; 81001; 82550; 83690; 83735; 83880; 84443; 84484; 85025; 85379; 85610; 85651; 85730; 87040; 87086; 87186; 87804; 93005; 93880; 93970; 94640; 96365; 96372; G0238; J0696; J1650; J7120; J7620; Q0163; Q9967; 99285-25

== ENCOUNTER → 2019-05-19 | Outpatient (CLI) | payer MEDICARE ==
[2019-04-27 10:59] VITALS: BP 98/65
[~2019-05-19] MED LIST changes: +CALC500T54 PO; +CEPH500C PO; +DICL100G18 TP; +DIPH25TA24 PO; +FURO20TA3 PO; +GUAI5SYR PO; +GUAI600T47 PO; +LACT1CAP19 PO; +MAGN250T10 PO; +ROPI1TAB2 PO; +ZINC50TA39 PO
--- NOTE | 2019-05-19 13:30 | RAD ---
EXAM: Left lower extremity venous Doppler sonogram. HISTORY: Pain and swelling. TECHNIQUE: Lantigua scale and color Doppler sonographic evaluation of the left lower extremity veins with spectral waveform analysis was performed. FINDINGS: There is normal color flow, normal compressibility and there are normal spectral waveforms in the common femoral, superficial femoral, popliteal, posterior tibial and greater saphenous veins. There is soft tissue edema. IMPRESSION: No Doppler evidence of lower extremity deep venous thrombosis. Electronically signed by: Rosemarie Jimenez MD (05/19/2019 1:27 PM) [facility] [place]
== END | disposition home or self-care (01) ==
LOC: US 12:27
PROVIDERS: ATTEND Family Medicine
DX: I83.893 Varicose veins of bilateral lower extremities with other complications (principal)
CPT/HCPCS: 93971

== ENCOUNTER 2019-12-07 19:00 | Inpatient (IN) | payer MEDICARE ==
[~2019-12-07] VITALS: Ht 146.1 cm; Wt 71.6 kg
[~2019-12-07 19:00] MED LIST changes: +MULT-445 PO; -MULT1TAB52 PO; -PANT40TA5 PO; +PANT40TA6 PO; -ROPI1TAB2 PO; +ROPI1TAB4 PO; +WARF1TAB2 PO; -WARF1TAB74 PO
[2019-12-07] MEDS ORDERED: MULT1CAP15 PO (19:23)
[2019-12-07] MEDS ORDERED: HYDR12.58 PO (19:23)
[2019-12-07 19:37] VITALS: BP 150/87
[2019-12-07 20:14] LABS: BASO % 0 % (0-3); EOS # 0.3 x10^3/uL (0.0-0.7); EOS % 3 % (0-3); HEMATOCRIT 39.1 % (36.0-47.0); HEMOGLOBIN 13.1 g/dL (12.0-15.5); LYMPH # 1.7 x10^3/uL (1.0-4.8); LYMPH % 22 % (24-48); MEAN CORPUSCULAR HEMOGLOBIN 32 pg (25-35); MEAN CORPUSCULAR HGB CONC 34 g/dL (31-37); MEAN CORPUSCULAR VOLUME 95 fL (79-100); MONO # 0.8 x10^3/uL (0.0-1.1); MONO % 10 % (0-9); NEUT % 65 % (31-73); PLATELET COUNT 194 x10^3/uL (140-400); RED CELL DISTRIBUTION WIDTH 12.8 % (11.5-14.5); WHITE BLOOD COUNT 7.8 x10^3/uL (4.0-11.0)
[2019-12-07 20:25] LABS: ALBUMIN 3.2 g/dL (3.4-5.0); ALBUMIN/GLOBULIN RATIO 0.7 (1.0-1.7); C REACTIVE PROTEIN 63.6 mg/L (0-3.3); CALCIUM 9.4 mg/dL (8.5-10.1); CREATININE 1.3 mg/dL (0.6-1.0); GFR 38.8; POTASSIUM 3.1 mmol/L (3.5-5.1); TOTAL BILIRUBIN 0.4 mg/dL (0.2-1.0); TOTAL PROTEIN 8.1 g/dL (6.4-8.2)
[2019-12-07] MEDS ORDERED: VANCOMYCIN 2 GM in IV NORMAL SALINE 500ML 500 ML IV ONE (21:00)
[2019-12-07] MEDS: traMADol 50 MG TABLET PO PRN (21:10)
[2019-12-07] MEDS: rOPINIRole 1 MG TABLET. PO SCH (21:10)
[2019-12-07] MEDS: VANCOMYCIN PER PHARMACY MC PRN (21:15)
--- NOTE | 2019-12-07 21:15 | NUR ---
Pharmacy Vancomycin Dosing Note S:Consulted to monitor and dose vancomycin started . O:SIDNEY STANTON is a 84 year old F with Cellulitis, . Height: 4 feet, 9.5 inches Weight: 155.5 kg [place] Body Weight: 39.75 Adjusted Body Weight: 86.05 Dosing Weight: Actual Other Antibiotics: LABS: Last BUN: 21 Last Creatinine: 1.3 Creatinine Clearance: Last WBC: 7.8 Last Procalcitonin: Tmax (past 24 hours): Microbiology: I/O: Drug Levels: Last level: on at Last dose given 12/07/19 at 2110 Vancomycin Dosing: Loading Dose: 2000 mg x1 Dosing Weight: Actual Target Trough: 10-20 A: Based on: P: 1. Begin Vancomycin 2000 mg IV q24h 2. Follow up Trough level on 12/09/19 at 2030 3. Pharmacy will continue to monitor, follow and adjust therapy as needed. DALE SHEIKH RPH, 12/07/192114
[2019-12-07] MEDS ORDERED: POTASSIUM CHLORIDE 20 MEQ TABLET.ER. PO ONE (22:00)
--- NOTE | 2019-12-07 22:11 | NUR ---
The patient, SIDNEY STANTON, 84 y/o, F admitted by MARTINE WOODSON MD, was given written information regarding hospital policies, unit procedures and contact persons. Pt direct admitted, from Dr. Woodson's office. Pt assisted onto the unit my staff via wheel chair. VSS. Patient reports that her leg just started as two sore at the bottom of her leg and has gotten worse since then. Pt reports that the pain is 6/10. Left lower leg is red, swollen and weeping. IV initiated and lab drawn. Pt oriented to plan of care and room. Valuables were checked and left in room with pt, bag of home medications in the med room. Call light within reach.
[2019-12-07 22:52] VITALS: BP 127/69
[2019-12-08 05:47] VITALS: BP 138/78
[2019-12-08 06:49] LABS: BASO % 0 % (0-3); EOS # 0.2 x10^3/uL (0.0-0.7); EOS % 3 % (0-3); HEMATOCRIT 35.3 % (36.0-47.0); HEMOGLOBIN 11.7 g/dL (12.0-15.5); LYMPH # 1.2 x10^3/uL (1.0-4.8); LYMPH % 19 % (24-48); MEAN CORPUSCULAR HEMOGLOBIN 31 pg (25-35); MEAN CORPUSCULAR HGB CONC 33 g/dL (31-37); MEAN CORPUSCULAR VOLUME 95 fL (79-100); MONO # 0.6 x10^3/uL (0.0-1.1); MONO % 9 % (0-9); NEUT # 4.4 x10^3uL (1.8-7.7); NEUT % 69 % (31-73); PLATELET COUNT 161 x10^3/uL (140-400); RED BLOOD COUNT 3.73 x10^6/uL (3.50-5.40); RED CELL DISTRIBUTION WIDTH 12.7 % (11.5-14.5); WHITE BLOOD COUNT 6.4 x10^3/uL (4.0-11.0)
[2019-12-08 07:21] LABS: ALBUMIN 2.6 g/dL (3.4-5.0); ALBUMIN/GLOBULIN RATIO 0.6 (1.0-1.7); CALCIUM 8.9 mg/dL (8.5-10.1); CREATININE 0.9 mg/dL (0.6-1.0); GFR 59.4; TOTAL BILIRUBIN 0.5 mg/dL (0.2-1.0); TOTAL PROTEIN 6.9 g/dL (6.4-8.2)
[2019-12-08] MEDS: VENLAFAXINE XR 37.5 MG CAP.ER.24H. PO SCH (08:32)
[2019-12-08] MEDS: traMADol 50 MG TABLET PO PRN ×2 (08:32→21:05)
[2019-12-08] MEDS: hydroCHLOROthiazide 12.5 MG CAPSULE PO SCH (08:32)
[2019-12-08] MEDS: ATENOLOL 50 MG TABLET PO SCH (08:33)
[2019-12-08] MEDS: POTASSIUM CHLORIDE 20 MEQ TABLET.ER. PO SCH (08:33)
[2019-12-08 10:44] VITALS: BP 125/66
[2019-12-08] MEDS: ALPRAZolam 0.25 MG TABLET PO PRN (10:49)
--- NOTE | 2019-12-08 11:53 | NUR ---
FAMILY MEMBER CALLED AND REPORTED THAT PATIENT WAS IN CONTACT WITH [facility] WHO HAS TESTED FOR COVID AND GOT POSITIVE RESULT. PATIENT DOES NOT EXHIBIT ANY S/S RELATED TO COVID 19. INFECTION CONTROL NOTIFIED. PER INFECTION CONTROL POLICIES, PATIENT WON'T NEED TO BE TESTED FOR COVID, PATIENT MUST WEAR MASK , STAFF MUST WEAR N 95 , GLOVES, AND EYE PROTECTION, NO GOWN NECESSARY. AIRBORN AND CONTACT PRECAUTIONS INITIATED. DR. WOODSON NOTIFIED. WILL CONTINUE TO MONITOR.
[2019-12-08] MEDS ORDERED: levoFLOXacin PER PHARMACY 1 EACH. MC PRN (12:00)
[2019-12-08] MEDS ORDERED: DEXTROSE 50% 25 GM / 50ML DISP.SYRIN. IV PRN (14:45)
[2019-12-08 15:15] VITALS: BP 119/68
[2019-12-08] MEDS: INSULIN LISPRO 300 UNITS/3 ML VIAL. SQ SCH (17:00)
[2019-12-08 19:21] VITALS: BP 109/60
[2019-12-08] MEDS ORDERED: VANCOMYCIN 2 GM in IV NORMAL SALINE 500ML 500 ML IV SCH (21:00)
[2019-12-08] MEDS ORDERED: VANCOMYCIN 1 GM in IV NORMAL SALINE 250ML 250 ML IV SCH (21:00)
[2019-12-08] MEDS: rOPINIRole 1 MG TABLET. PO SCH (21:04)
--- NOTE | 2019-12-08 21:52 | NUR ---
Spoke with pt's daughter, Azra Barreto, at pt's request and updated her on pt status. Pt's daughter shared that pt was treated for multiple blood clots in her legs late last year and was supposed to start on Eliquis at home, but was unable due to high cost. Pt taking ASA instead. aware.
--- NOTE | 2019-12-08 22:14 | PN ---
DATE: SUBJECTIVE: The patient in with cellulitis to the left lower leg. She has been doing somewhat better. She is very tired and weakened. OBJECTIVE: VITAL SIGNS: Blood pressure 110/60, respiratory rate 20, pulse 77, temperature 98. GENERAL: The patient is alert and oriented. LUNGS: Diminished throughout. CARDIOVASCULAR: Irregularly irregular. ABDOMEN: Soft. EXTREMITIES: The left lower leg shows decreased swelling, but there is marked abrasions with loss of skin to the left lower leg. The right lower leg shows marked swelling and erythema noted to the leg itself. Otherwise, continued to be monitored carefully. Continue on IV vancomycin. We will make further decision on a course of therapy for placement of a possible PICC line and the like. IMPRESSION: Cellulitis to the left lower leg. Also, multiple abrasions to her arms. Have wound clinic also come in to evaluate her. MARTINE WOODSON MD DR: ANNIKA/rachel JOB#: [id number] / [id number]
[2019-12-08 22:17] VITALS: BP 118/62
[2019-12-09] MEDS: traMADol 50 MG TABLET PO PRN (01:06)
[2019-12-09] MEDS: ALPRAZolam 0.25 MG TABLET PO PRN ×2 (01:13→21:39)
[2019-12-09 06:29] VITALS: BP 111/61
[2019-12-09] MEDS: VENLAFAXINE XR 37.5 MG CAP.ER.24H. PO SCH (08:25)
[2019-12-09] MEDS: hydroCHLOROthiazide 12.5 MG CAPSULE PO SCH (08:25)
[2019-12-09] MEDS: LACTOBACILLUS RHAMNOSUS GG 1 CAPSULE. PO SCH ×2 (08:25→21:39)
[2019-12-09] MEDS: POTASSIUM CHLORIDE 20 MEQ TABLET.ER. PO SCH (08:25)
[2019-12-09] MEDS: ATENOLOL 50 MG TABLET PO SCH (08:27)
[2019-12-09] MEDS: INSULIN LISPRO 300 UNITS/3 ML VIAL. SQ SCH ×3 (08:31→17:00)
[2019-12-09] MEDS ORDERED: ASPIRIN CHEWABLE 81 MG TABLET. PO SCH (09:00)
[2019-12-09 11:55] VITALS: BP 111/64
[2019-12-09 18:00] VITALS: BP 130/57
[2019-12-09 19:51] VITALS: BP 138/71
[2019-12-09 20:53] LABS: VANC TR 8.3 mcg/mL (10.0-20.0)
[2019-12-09] MEDS ORDERED: VANCOMYCIN 1.75 GM in IV NORMAL SALINE 500ML 500 ML IV SCH (21:30)
[2019-12-09] MEDS: rOPINIRole 1 MG TABLET. PO SCH (21:39)
[2019-12-09] MEDS: VANCOMYCIN 750 MG in IV NORMAL SALINE 250ML 250 ML IV SCH (21:39)
[2019-12-09] MEDS: VANCOMYCIN PER PHARMACY MC PRN (21:40)
--- NOTE | 2019-12-09 21:40 | NUR ---
Pharmacy Vancomycin Dosing Note S:Consulted to monitor and dose vancomycin started 12/07/19. O:SIDNEY STANTON is a 84 year old F with cellulitis. Height: 4 feet, 9.5 inches Weight: 71.9 kg [place] Body Weight: 39.75 Adjusted Body Weight: 52.61 Dosing Weight: Actual Other Antibiotics: Levofloxacin 500mg q24h LABS: Last BUN: 18 Last Creatinine: 0.9 Creatinine Clearance: 33.8 Last WBC: 6.4 Drug Levels: Last Trough level: 8.3 on 12/09/19 at 2030 Last dose given 12/08/19 at 2100 Vancomycin Dosing: Loading Dose: 2000 mg x1 Dosing Weight: Actual Target Trough: 10-20 A: Based on: Patient's trough level is below goal with slightly improved kidney function. Will increase dosing interval but decrease dose. P:1. Change Vancomycin 750 mg IV q12h 2. Follow up Trough level on 12/10/19 at 2100 3. Pharmacy will continue to monitor, follow and adjust therapy as needed. CORY PEDRO, 12/09/19 [id number]
[2019-12-09 22:00] VITALS: BP 150/81
--- NOTE | 2019-12-09 22:04 | PN ---
DATE: 12/09/2019 SUBJECTIVE: An 84-year-old female with cellulitis of the left lower leg. The patient is resting fairly comfortably, making fairly good progress overall. The patient; however, still has some infection in her lower leg and is still receiving PT, OT. We will continue with IV antibiotic therapy. OBJECTIVE: VITAL SIGNS: Blood pressure 128/70, respiratory rate 20, pulse 85, and 97.2 temperature. The patient is waiting also to get a Wound Care Clinic consultation. LUNGS: Clear. CARDIOVASCULAR: Stable. ABDOMEN: Soft. EXTREMITIES: The patient's left lower leg is still inflamed, multiple ulcerations. We will try to put some healing cream on it. Other than that, the patient continues with IV vancomycin and PT, OT. IMPRESSION: Cellulitis to the left lower leg, multiple abrasions to the ER. Continue with IV antibiotic therapy. MARTINE WOODSON MD DR: ANNIKA/rachel JOB#: [id number] / [id number]
[2019-12-10] MEDS: traMADol 50 MG TABLET PO PRN (00:54)
--- NOTE | 2019-12-10 04:01 | NUR ---
Pt awoke around midnight c/o low back and LLE pain. Reports bed is uncomfortable despite elevation and pillow placement. Pt moved to recliner to rest with BLE elevated on 2 pillows and PRN tramadol administered as indicated. Pt rested for approx. 3 hours, then awoke to toilet--agreed to get washed up x2 assist. Pt tolerated well and reports feeling better. Pt now back in bed, positioned for maximal comfort. Resting with call light in reach.
[2019-12-10 06:06] VITALS: BP 122/60
[2019-12-10] MEDS: INSULIN LISPRO 300 UNITS/3 ML VIAL. SQ SCH ×2 (08:00→12:00)
[2019-12-10] MEDS: VENLAFAXINE XR 37.5 MG CAP.ER.24H. PO SCH (08:05)
[2019-12-10] MEDS: POTASSIUM CHLORIDE 20 MEQ TABLET.ER. PO SCH (08:05)
[2019-12-10] MEDS: hydroCHLOROthiazide 12.5 MG CAPSULE PO SCH (08:06)
[2019-12-10] MEDS: LACTOBACILLUS RHAMNOSUS GG 1 CAPSULE. PO SCH (08:06)
[2019-12-10] MEDS: ATENOLOL 50 MG TABLET PO SCH (08:07)
[2019-12-10] MEDS: VANCOMYCIN 750 MG in IV NORMAL SALINE 250ML 250 ML IV SCH (09:31)
--- NOTE | 2019-12-10 10:54 | PN ---
DATE: SUBJECTIVE: An 84-year-old female in with cellulitis, left lower leg. The patient's leg looks less infected; however, there is a large crusted area over the lower tibial part of the leg. Wound care is to come in this afternoon to review it. Otherwise, the patient has a tic of scratching herself on her right arm and broken down the skin. I told the nurse to increase her Xanax frequency in any way to help her cut down her anxiety. Blood pressure 122/60, respiration 22, pulse 88. This is a well-developed, well-nourished female looking a little pale. She says she is very tired today, did not sleep well. Otherwise, the patient's leg is as noted, is improving, but there is a large crusted area on the lower aspect of the leg and there are multiple excoriations to the right arm as indicated. So, we will wait for wound care. I talked to school social worker to dispense the patient possibly to a fpc or to a facility here for rehab care. IMPRESSION: Cellulitis, right lower leg; excoriations to the right arm. MARTINE WOODSON MD DR: ANNIKA/rachel JOB#: [id number] / [id number]
[2019-12-10 10:57] VITALS: BP 124/68
--- NOTE | 2019-12-10 15:06 | NUR ---
PATIENT IS DISCHARGED TO HALF-WAY UNIT. DISCHARGE INSTRUCTIONS ARE REVIEWED , PT VERBALIZED UNDERSTANDING. PATIENT LEFT ROOM VIA W/C ACCOMPANIED BY STAFF MEMBER. PATIENT WILL CONTINUE ANTIBIOTIC TREATMENT, WOUND CARE AND PHYSICAL THERAPY AT [facility]WAY UNIT.
== END 2019-12-10 15:05 | DRG 602 ==
LOC: 1 SOUTH 19:00
PROVIDERS: ADMIT Family Medicine; ATTEND Family Medicine
DX: L03.116 Cellulitis of left lower limb (principal); N17.0 Acute kidney failure with tubular necrosis; L03.115 Cellulitis of right lower limb; F41.9 Anxiety disorder, unspecified; Z88.2 Allergy status to sulfonamides; S80.812A Abrasion, left lower leg, initial encounter; Z88.8 Allergy status to other drugs, medicaments and biological substances; Z79.899 Other long term (current) drug therapy; I10 Essential (primary) hypertension; J45.909 Unspecified asthma, uncomplicated; E78.5 Hyperlipidemia, unspecified; Z90.49 Acquired absence of other specified parts of digestive tract; Z87.891 Personal history of nicotine dependence; Z86.718 Personal history of other venous thrombosis and embolism
CPT/HCPCS: 36415; 80053; 80202; 82947; 83605; 85025; 86140; 87040; 87070; J1815; J1956; J3370; J7040; J7050; 97110; 97530; 97535

== ENCOUNTER 2019-12-10 14:57 | Inpatient (IN) | payer MEDICARE ==
[~2019-12-10] VITALS: Ht 146.1 cm; Wt 70.6 kg
[~2019-12-10 14:57] MED LIST changes: +MULT1CAP15 PO
[2019-12-10 15:15] VITALS: BP 122/59
[2019-12-10] MEDS ORDERED: ALPRAZolam 0.25 MG TABLET PO PRN (16:00)
[2019-12-10] MEDS ORDERED: DEXTROSE 50% 25 GM / 50ML DISP.SYRIN. IV PRN (16:00)
[2019-12-10] MEDS ORDERED: VANCOMYCIN PER PHARMACY MC PRN (16:00)
[2019-12-10] MEDS ORDERED: levoFLOXacin PER PHARMACY 1 EACH. MC PRN (16:00)
[2019-12-10] MEDS: INSULIN LISPRO 300 UNITS/3 ML VIAL. SQ SCH (17:00)
--- NOTE | 2019-12-10 17:10 | NUR ---
Wound Care Wound care consult for LLE wound. Pt has stasis ulcer to LLE that is dry and peeling. Applied A&D ointment, xeroform, ABD, Kerlix and medigrip size D. Pt has small scratch to left buttock that pt says she scratched, calazime applied. Pt right arm is alos covered with scratches that the pt says she did because it itches. Applied lotion and a medigrip to protect the arm and remind pt not to scratch. No other wounds noted. WC will follow up next week. Recommend pt to elevate legs while sitting and to use a WC cushion, ordered from house calls nurse practitioner.
[2019-12-10] MEDS ORDERED: VITS A & D/LANOLIN TOPICAL OINTMENT 42GM TUBE. TP PRN (17:15)
--- NOTE | 2019-12-10 18:49 | NUR ---
Swing Bed Nursing Note Patient Handbook for [facility] given to patient. Nursing Problem: LLE CELLULITIS Cognitive/Behavioral: Alert and oriented, pleasant. use call light for assist Pain: PAIN IN LLE. TRAMADOL PO ORDERED PRN FOR PAIN Respiratory Status: Lungs CLEAR. RA Skin: REDNESS AND PAIN IN LLE D/T CELLULITIS. SCRATCHES AND SCABS AND PEELING ON ARMS AND LEGS (PATIENT IS PICKING AT IT). SEE WOUND CARE TEAM NOTE. Bowel/Bladder Continence: CONTINENT X 2. LAST BM ON 12/08 ADL Functional Status: Uses walker, unsteady, PAIN IN LLE, ASSIST X 1 WITH GAIT BELT AND WALKER.
[2019-12-10] MEDS: rOPINIRole 1 MG TABLET. PO SCH (21:00)
[2019-12-10] MEDS: VANCOMYCIN 750 MG in IV NORMAL SALINE 250ML 250 ML IV SCH (21:30)
--- NOTE | 2019-12-10 22:25 | NUR ---
Swing Bed Nursing Note Nursing Problem: Pt admitted to SNF for cellulitis, antibiotics, weakness. Cognitive/Behavioral: Pt is on the phone with her sister stating she is NOT a diabetic never has been, the only reason her sugar is up is because shes been eating jelly donuts, danishes and white toast all summer long. States that we gave her insulin and she is certainly not diabetic and when I tell her I plan to come back to get her blood sugar, she states, "Don't bother I don't want to know" Pain: Denies pain Respiratory Status: CTA, but is easily SOA with ambulation and bed mobility. Skin: Cellulitis to LE, nathaniel has various scabby areas to her bilat arms with old scars across her back and shoulders. Bowel/Bladder Continence: Continent ADL Functional Status: SBA to min assist for ambulation.
[2019-12-10 23:28] LABS: VANC TR 12.3 mcg/mL (10.0-20.0)
[2019-12-10 23:39] LABS: GFR 52.6
--- NOTE | 2019-12-11 02:10 | NUR ---
Nursing Note Pt becomes increasingly dependent and helpless as the night goes by. Initially, when she was in the recliner had more stamina and was able to get out of the chair and ambulate to the bathroom with minimal assistance. After going to bed, pt has been up to the bathroom 6 times having small formed bowel movements each time. She has progressively gotten weaker with each time out of bed, has poor bed mobility, is unable to go from lying to sitting, sitting to standing without significant help to move her legs and trunk. Pt attempts to bed over at the waist to pick up driver tissues off the floor after being warned on multiple occasions to not do this unsafe maneuver. Pt has poor awareness of her balance and use of the walker. Will shuffle sideways out of the walker to get to the stool and the sink. It takes a minimum of 15 minutes max of 30 to toilet this patient from start to finish from the bed. Pt has great difficulty trying to navigate the small bathroom safely with her walker. Pt informed me that she lives with her family, so I have been trying to encourage her to do things on her own. She responds with snappy retorts such as "Do you think I want to be this way, I have just gotten this way recently, I have gotten worse." I told her she may be worse at this point but our program is designed to maximize her independence and function to return to her previous level. She is significantly SOA with any energy expenditure, although her saturation is in the upper 90's. She is quite resistant to helping herself as the night progresses and makes excuses of why she needs to use the bathroom so frequently, "I am drinking more because I have water right here, I am eating more because at home my daughter never fixes lunch. I could fix it myself but its too hard so I just don't eat and drink, and my family will once in a while make me a sandwich but other than that I only eat a small breakfast and dinner." I told her we should probably catch a sample of her urine because she having so many trips to the bathroom and is grunting and seems to have difficulty emptying her bladder. She also could be constipated but denies saying it's related to the large portions of food and water she is ingesting here. She also sits on the toilet making small folded mitts of toilet paper to wipe herself, taking an inordinate amount of time wiping and re wiping herself, folding and unfolding the toilet paper. Seems to have some obsessive repetitive behavior related to toileting, toilet paper and tissues. Uses a moderate amount of tissues at the bedside, then throws them on the floor later attempting to bend over and pick them up. Pt will also not lift her legs back into the bed, but complains that she doesn't want staff to touch them due to pain. Helped her back to bed guiding her feet to the end of the bed without touching her calves. Encouraged pt to try to get some sleep at this point since she has been up and down a total of 6 times.
[2019-12-11 08:14] LABS: BILIRUBIN,URINE NEG (NEG); CLARITY,URINE CLEAR; COLOR,URINE YELLOW; GLUCOSE,URINE NEG (NEG); NITRITE,URINE NEG (NEG); UROBILINOGEN,URINE 0.2 mg/dL (0.2 mg/dL)
[2019-12-11 08:15] LABS: BACTERIA,URINE 0 /HPF (0-FEW); RBC,URINE OCC /HPF (0-2); SQUAMOUS EPITHELIAL CELL,UR MOD /LPF
[2019-12-11 08:48] VITALS: BP 111/51
[2019-12-11] MEDS: INSULIN LISPRO 300 UNITS/3 ML VIAL. SQ SCH ×3 (08:49→16:59)
[2019-12-11] MEDS: POTASSIUM CHLORIDE 20 MEQ TABLET.ER. PO SCH (08:54)
[2019-12-11] MEDS: hydroCHLOROthiazide 12.5 MG CAPSULE PO SCH (08:54)
[2019-12-11] MEDS: VENLAFAXINE XR 37.5 MG CAP.ER.24H. PO SCH (08:54)
[2019-12-11] MEDS: ATENOLOL 25 MG TABLET PO SCH (08:57)
[2019-12-11] MEDS: MULTIVITAMIN with MINERAL TABLET. PO SCH (08:57)
[2019-12-11] MEDS: CALCIUM CARBONATE 500 MG TABLET PO SCH (08:57)
[2019-12-11] MEDS: VANCOMYCIN 750 MG in IV NORMAL SALINE 250ML 250 ML IV SCH ×2 (09:33→22:00)
--- NOTE | 2019-12-11 14:04 | NUR ---
Swing Bed Nursing Note Nursing Problem: Pt admitted to SNF for cellulitis, antibiotics, weakness. Cognitive/Behavioral: calm, cooperative, compliant, confused at times Pain: Denies pain Respiratory Status: CTA, but is easily SOA with ambulation and bed mobility. Skin: Cellulitis to LE, nathaniel has various scabby areas to her bilat arms with old scars across her back and shoulders. Bowel/Bladder Continence: Continent ADL Functional Status: SBA to min assist for ambulation.
[2019-12-11 19:46] VITALS: BP 92/70
[2019-12-11] MEDS: rOPINIRole 1 MG TABLET. PO SCH (22:00)
[2019-12-12] MEDS: traMADol 50 MG TABLET PO PRN ×2 (05:09→09:16)
[2019-12-12 08:00] VITALS: BP 133/65
[2019-12-12] MEDS: INSULIN LISPRO 300 UNITS/3 ML VIAL. SQ SCH ×3 (08:00→17:00)
[2019-12-12] MEDS: POTASSIUM CHLORIDE 20 MEQ TABLET.ER. PO SCH (09:15)
[2019-12-12] MEDS: ATENOLOL 25 MG TABLET PO SCH (09:15)
[2019-12-12] MEDS: hydroCHLOROthiazide 12.5 MG CAPSULE PO SCH (09:15)
[2019-12-12] MEDS: MULTIVITAMIN with MINERAL TABLET. PO SCH (09:15)
[2019-12-12] MEDS: ASPIRIN CHEWABLE 81 MG TABLET. PO SCH (09:15)
[2019-12-12] MEDS: VENLAFAXINE XR 37.5 MG CAP.ER.24H. PO SCH (09:15)
[2019-12-12] MEDS: CALCIUM CARBONATE 500 MG TABLET PO SCH (09:15)
[2019-12-12] MEDS: VANCOMYCIN 750 MG in IV NORMAL SALINE 250ML 250 ML IV SCH ×2 (09:20→21:50)
[2019-12-12 20:08] VITALS: BP 134/58
[2019-12-12] MEDS: rOPINIRole 1 MG TABLET. PO SCH (21:49)
[2019-12-13 07:57] VITALS: BP 134/72
[2019-12-13] MEDS: INSULIN LISPRO 300 UNITS/3 ML VIAL. SQ SCH ×3 (08:00→17:00)
[2019-12-13] MEDS: CALCIUM CARBONATE 500 MG TABLET PO SCH (09:39)
[2019-12-13] MEDS: ASPIRIN CHEWABLE 81 MG TABLET. PO SCH (09:40)
[2019-12-13] MEDS: hydroCHLOROthiazide 12.5 MG CAPSULE PO SCH (09:40)
[2019-12-13] MEDS: POTASSIUM CHLORIDE 20 MEQ TABLET.ER. PO SCH (09:40)
[2019-12-13] MEDS: MULTIVITAMIN with MINERAL TABLET. PO SCH (09:40)
[2019-12-13] MEDS: VENLAFAXINE XR 37.5 MG CAP.ER.24H. PO SCH (09:40)
[2019-12-13] MEDS: ATENOLOL 25 MG TABLET PO SCH (09:40)
[2019-12-13] MEDS: VANCOMYCIN 750 MG in IV NORMAL SALINE 250ML 250 ML IV SCH ×2 (09:41→20:24)
[2019-12-13] MEDS: rOPINIRole 1 MG TABLET. PO SCH (20:23)
[2019-12-14] MEDS: INSULIN LISPRO 300 UNITS/3 ML VIAL. SQ SCH ×3 (07:45→16:34)
[2019-12-14] MEDS: VENLAFAXINE XR 37.5 MG CAP.ER.24H. PO SCH (07:48)
[2019-12-14] MEDS: POTASSIUM CHLORIDE 20 MEQ TABLET.ER. PO SCH (07:49)
[2019-12-14] MEDS: ATENOLOL 25 MG TABLET PO SCH (07:49)
[2019-12-14] MEDS: CALCIUM CARBONATE 500 MG TABLET PO SCH (07:49)
[2019-12-14] MEDS: hydroCHLOROthiazide 12.5 MG CAPSULE PO SCH (07:49)
[2019-12-14] MEDS: MULTIVITAMIN with MINERAL TABLET. PO SCH (07:49)
[2019-12-14] MEDS: VANCOMYCIN 750 MG in IV NORMAL SALINE 250ML 250 ML IV SCH ×2 (07:50→21:47)
[2019-12-14] MEDS: LACTOBACILLUS RHAMNOSUS GG 1 CAPSULE. PO SCH ×2 (07:51→21:36)
[2019-12-14 09:45] VITALS: BP 121/61
--- NOTE | 2019-12-14 13:05 | NUR ---
Swing Bed Nursing Note Nursing Problem: Pt admitted to SNF for cellulitis, antibiotics, weakness. Cognitive/Behavioral: a&o this am upon assessment, can be forgetful at times Pain: Denies pain Respiratory Status: lungs clear, room air, SOA when ambulating at times Skin: pt has cellulitis to LLE, covered with zeroform gauze, abd pad, and gauze roll. changed today. pt is skin loading checker, scratching all over, bleeding, scabs all over body. pt is to have her legs elevated when in bed and sitting in chair. Bowel/Bladder Continence: Continent ADL Functional Status: pt stand by assist for weakness, occasional x1 assist when ambulating with walker and gait belt, pt is independent with her meals, pt is able to wipe herself, pt is able to get her pants on and off alone. pt takes her meds whole. will continue to monitor. ady mcfadden.
[2019-12-14 20:16] VITALS: BP 116/56
[2019-12-14] MEDS: traMADol 50 MG TABLET PO PRN (21:36)
[2019-12-14] MEDS: rOPINIRole 1 MG TABLET. PO SCH (21:47)
--- NOTE | 2019-12-14 23:53 | NUR ---
Swing Bed Nursing Note Nursing Problem: Pt admitted to SNF for cellulitis, antibiotics, weakness. Cognitive/Behavioral: a&o this evening upon assessment Pain: Denies pain Respiratory Status: lungs clear, room air, SOA when ambulating at times Skin: pt has cellulitis to LLE, covered with zeroform gauze, abd pad, and gauze roll. changed after shower on 12/13. pt right arm covered w/ sleeve after shower to prevent picking. Bowel/Bladder Continence: Continent ADL Functional Status: pt stand by assist for weakness, occasional x1 assist when ambulating with walker and gait belt, pt is independent with her meals, pt is able to wipe herself, pt is able to get her pants on and off alone. pt takes her meds whole. will continue to monitor.
[2019-12-15] MEDS: traMADol 50 MG TABLET PO PRN ×2 (07:30→20:39)
[2019-12-15] MEDS: CALCIUM CARBONATE 500 MG TABLET PO SCH (07:30)
[2019-12-15] MEDS: MULTIVITAMIN with MINERAL TABLET. PO SCH (07:30)
[2019-12-15] MEDS: POTASSIUM CHLORIDE 20 MEQ TABLET.ER. PO SCH (07:30)
[2019-12-15] MEDS: VENLAFAXINE XR 37.5 MG CAP.ER.24H. PO SCH (07:30)
[2019-12-15] MEDS: hydroCHLOROthiazide 12.5 MG CAPSULE PO SCH (07:30)
[2019-12-15] MEDS: LACTOBACILLUS RHAMNOSUS GG 1 CAPSULE. PO SCH ×2 (07:31→20:39)
[2019-12-15] MEDS: ATENOLOL 25 MG TABLET PO SCH (07:31)
[2019-12-15] MEDS: INSULIN LISPRO 300 UNITS/3 ML VIAL. SQ SCH ×3 (07:34→17:00)
[2019-12-15 07:43] VITALS: BP 161/71
[2019-12-15] MEDS: VANCOMYCIN 750 MG in IV NORMAL SALINE 250ML 250 ML IV SCH ×2 (09:30→21:30)
[2019-12-15 19:25] VITALS: BP 112/76
[2019-12-15] MEDS: rOPINIRole 1 MG TABLET. PO SCH (20:39)
--- NOTE | 2019-12-15 23:22 | NUR ---
Swing Bed Nursing Note Nursing Problem: Pt admitted to SNF for cellulitis, antibiotics, weakness. Cognitive/Behavioral: a&o this evening upon assessment Pain: pt. complained of throbbing pain in LLE Respiratory Status: lungs clear, room air, SOA when ambulating at times Skin: pt has cellulitis to LLE, covered with zeroform gauze, abd pad, and gauze roll. changed after shower on 12/13. pt right arm covered w/ sleeve after shower to prevent picking. Bowel/Bladder Continence: Continent ADL Functional Status: pt stand by assist for weakness. pt ambulated to restroom w/o help. pt was able to wipe and pull pants up on own. pt was also able to stand at sink and brush teeth w/o feeling weak. pt. then ambulated back to chair.
[2019-12-16] MEDS: traMADol 50 MG TABLET PO PRN ×3 (07:55→20:24)
[2019-12-16] MEDS: INSULIN LISPRO 300 UNITS/3 ML VIAL. SQ SCH ×3 (08:00→16:18)
[2019-12-16] MEDS: CALCIUM CARBONATE 500 MG TABLET PO SCH (08:12)
[2019-12-16] MEDS: POTASSIUM CHLORIDE 20 MEQ TABLET.ER. PO SCH (08:12)
[2019-12-16] MEDS: hydroCHLOROthiazide 12.5 MG CAPSULE PO SCH (08:12)
[2019-12-16] MEDS: LACTOBACILLUS RHAMNOSUS GG 1 CAPSULE. PO SCH ×2 (08:12→20:23)
[2019-12-16] MEDS: VENLAFAXINE XR 37.5 MG CAP.ER.24H. PO SCH (08:12)
[2019-12-16] MEDS: MULTIVITAMIN with MINERAL TABLET. PO SCH (08:13)
[2019-12-16] MEDS: ATENOLOL 25 MG TABLET PO SCH (08:13)
[2019-12-16] MEDS: ASPIRIN CHEWABLE 81 MG TABLET. PO SCH (08:13)
[2019-12-16 08:51] VITALS: BP_SYST 132; BP_SYST 135; BP_DIAS 61; BP_DIAS 72
[2019-12-16] MEDS: VANCOMYCIN 750 MG in IV NORMAL SALINE 250ML 250 ML IV SCH ×2 (09:27→21:40)
[2019-12-16 09:44] LABS: VANC TR 16.4 mcg/mL (10.0-20.0)
[2019-12-16 19:48] VITALS: BP 115/63
[2019-12-16] MEDS: rOPINIRole 1 MG TABLET. PO SCH (20:24)
--- NOTE | 2019-12-16 23:33 | NUR ---
Swing Bed Nursing Note Nursing Problem: Pt admitted to SNF for cellulitis, antibiotics, weakness. Cognitive/Behavioral: a&o this evening upon assessment Pain: pt. complained of throbbing pain in LLE 08/28. PRN Tramadol given as ordered Respiratory Status: lungs clear, room air, SOA when ambulating at times Skin: Pt has cellulitis to LLE, covered with zeroform gauze, abd pad, and gauze roll - changed this evening. Pt right arm covered w/ sleeve after shower to prevent picking. 20g IV to right forearm. Bowel/Bladder Continence: Continent ADL Functional Status: Pt stand by assist for weakness. Pt is able to ambulated to restroom w/ supervised assistance only. Pt is able to wipe and pull pants up on her own. Pt is able to stand at sink and brush teeth independently.
[2019-12-17] MEDS: LACTOBACILLUS RHAMNOSUS GG 1 CAPSULE. PO SCH (07:39)
[2019-12-17] MEDS: CALCIUM CARBONATE 500 MG TABLET PO SCH (07:39)
[2019-12-17] MEDS: POTASSIUM CHLORIDE 20 MEQ TABLET.ER. PO SCH (07:39)
[2019-12-17] MEDS: MULTIVITAMIN with MINERAL TABLET. PO SCH (07:39)
[2019-12-17] MEDS: VANCOMYCIN 750 MG in IV NORMAL SALINE 250ML 250 ML IV SCH (07:40)
[2019-12-17] MEDS: VENLAFAXINE XR 37.5 MG CAP.ER.24H. PO SCH (07:40)
[2019-12-17] MEDS: ATENOLOL 25 MG TABLET PO SCH (07:45)
[2019-12-17 07:46] VITALS: BP 121/58
[2019-12-17] MEDS: hydroCHLOROthiazide 12.5 MG CAPSULE PO SCH (07:46)
[2019-12-17] MEDS: INSULIN LISPRO 300 UNITS/3 ML VIAL. SQ SCH (07:48)
[2019-12-17] MEDS ORDERED: LACT1CAP19 PO (08:17)
[2019-12-17] MEDS ORDERED: CEPH500C PO (08:17)
--- NOTE | 2019-12-17 08:20 | DISCH ---
HOME HEALTH DISCHARGE/MEDS DISCHARGE INFORMATION: Discharge Date: Dec 17, 2019 Final Diagnosis: cellulitis left leg Condition on Discharge: Stable CODE STATUS: Code Status: Full HOME HEALTH: Face to Face: I certify this patient is under my care and that I, or a nurse practitioner or physician's anesthesiologist assistant certified working with me, had a face to face encounter that meets the physician face to face encounter requirements with this patient on [Date]. Medical Condition(s): Dementia, HTN, Other (cellulitis left leg) Intermediate For: Assess Cardiopulm Status, Assess & Educate Safety, Assess/Skilled Observatio, Medication Management, Wound Care Physical Therapy For: Safety Occupational Therapy For: ADL's POST DISCHARGE ORDERS: Activity Instructions for Disc: No restrictions Weight Bearing Status after Di: No restrictions CERTIFICATION STATEMENT: Certification Statement: Based on the above finding, I certify that this patient is confined to the home and needs intermittent intermediate care, physical therapy and/or speech therapy, or continues to need occupational therapy.~ This patient is under my care, and I have initiated the establishment of the plan of care.~ This patient will be followed by myself or a community physician who will periodically review the plan of care. DISCHARGE MEDICATIONS: Home Meds Active Scripts Ropinirole Hcl (ROPINIROLE HCL) 1 Mg Tablet, 1 MG PO HS for tremors/restlsess leg for 30 Days, #30 TAB 2 Refills Prov:MARTINE WOODSON MD 04/27/19 Reported Medications Multivitamin (MULTIVITAMINS) 1 Each Capsule, 1 CAP PO DAILY for SUPPLEMENT for 30 Days, #30 CAP 0 Refills 12/07/19 Hydrochlorothiazide (HYDROCHLOROTHIAZIDE TABLET) 12.5 Mg Tablet, 12.5 MG PO DAILY for DIURETIC, TAB 0 Refills 12/07/19 Diphenhydramine Hcl (DIPHENHYDRAMINE HCL) 25 Mg Tablet, 25 MG PO DAILY for allergy relief, TAB 04/24/19 Calcium Carbonate (CALCIUM) 500 Mg Tab.chew, 1200 MG PO DAILY for vitamin sup, TAB.CHEW 04/24/19 Aspirin (ASPIRIN) 81 Mg Tab.chew, 81 MG PO QODAY for Anticoagulant, TAB 03/10/19 Tramadol Hcl (TRAMADOL HCL) 50 Mg Tablet, 50 MG PO PRN Q4HRS PRN for PAIN, TAB 03/10/19 Venlafaxine Hcl (VENLAFAXINE HCL ER) 75 Mg Cap.er.24h, 75 CAP PO DAILY for nerve pain and antidepressant 03/09/19 Potassium Chloride (KLOR-CON M20) 20 Meq Tab.er.prt, 20 MEQ PO DAILY for supplement, TAB.SR 02/12/19 Alprazolam (XANAX) 0.25 Mg Tablet, 0.25 MG PO PRN BID PRN for ANXIETY / AGITATION 02/12/19 Atenolol (ATENOLOL ) 50 Mg Tablet, 25 MG PO DAILY for ANTIHYPERTENSIVE 07/06/18 MARTINE WOODSON MD Dec 17, 2019 08:19
--- NOTE | 2019-12-17 09:13 | NUR ---
NURSING NOTE DISCHARGE PT DISCHARGED HOME VIA WHEELCHAIR ACCOMPANIED BY SELF PICKED UP BY DAUGHTER WITH [facility]. PT GIVEN SCRIPT FOR TRAMADOL AND HER ANTIBIOTICS SENT TO [facility]. PT GIVEN WRITTEN AND VERBAL DISCHARGE INSTRUCTIONS FOR CELLULITIS. PT ENCOURAGED TO FOLLOW UP WITH PCP IN 7-10 DAYS OR SOONER IF NEEDED. TALAT PIKE.
--- NOTE | 2019-12-17 11:01 | HP ---
ADMIT DATE: 12/10/2019 HISTORY OF PRESENT ILLNESS: An 84-year-old female patient came in initially with an infection in her legs. The patient continued to have problems with wound care and generalized weakness. The patient's left lower leg was markedly infected, ulcerated. She had failed oral antibiotics and came in for IV antibiotics. Initially on the regular floor and then was transferred here to [facility] for continued IV antibiotic therapy and aggressive physical and occupational therapy. PAST MEDICAL HISTORY: Cataracts, hearing loss, TIAs, dementia, Xarelto, emphysema, pneumonia, tubal ligations, incontinence, urinary urgency, arthritis, psychiatric problems, depression, tetanus and diphtheria vaccinations, pneumococcal vaccinations. FAMILY HISTORY: Mother with diabetes. Father with kidney disease. Mother with breast cancer. Coronary artery disease in father. ALLERGIES: ____. MEDICATIONS: Reconciled. The patient had recently returned back from [place], has not been in contact with anybody of any significance or any disease. MEDICATIONS: Atenolol 50, tramadol, Effexor 75, Xanax 0.25, Robinul 1 mg, potassium chloride, hydrochlorothiazide, and vitamins. SOCIAL HISTORY: No smoking, alcohol or drug use. The patient is a full code. REVIEW OF SYSTEMS: The patient denies any headaches, visual change, blurred vision, double vision. Does have some mild memory loss. Denies chest pain, abdominal pain. Denies any nausea, vomiting, melena, hematochezia, hematemesis except for the left lower leg, which is quite painful, swollen, red and inflamed consistent with her infection. PHYSICAL EXAMINATION: GENERAL: This is a pleasant white female with stated age of 84, relatively good condition except she has some staggering of her speech, but other than that, she is a delightful individual. VITAL SIGNS: Blood pressure 120/50, respiratory rate 18, pulse 77-80, temperature afebrile. HEENT: The patient's head was atraumatic, normocephalic. Eyes: PERRLA without jaundice. Mouth, dental missing. NECK: Supple, without JVD, carotid bruits or thyromegaly. LUNGS: Diminished, but clear. CARDIOVASCULAR: Regular sinus rhythm. ABDOMEN: Soft, nontender. EXTREMITIES: No clubbing, cyanosis. There is edema ____ left lower leg shows inflammation to the leg with ulcerations noted. Pulses noted distally, DT and PT noted. NEUROLOGICAL FUNCTION: Alert and oriented, able to follow commands. Has mild short-term memory deficits, but other than that seems to be really quite well. The patient's UA was unremarkable. Chemistries, blood sugars are being checked in the low 100s, seems to be in relatively good condition there. The patient's hemoglobin 11 and hematocrit 35. The patient otherwise will continued to be monitored carefully here ____ Physical and Occupational for skilled unit and make further evaluation on her with that infected leg. MARTINE WOODSON MD DR: ANNIKA/rachel JOB#: [id number] / [id number]
[2019-12-17] MEDS ORDERED: DONEPEZIL HCL 5 MG TABLET. PO SCH (21:00)
--- NOTE | 2020-01-07 18:58 | DS ---
DATE OF DISCHARGE: 12/17/2019 HOSPITAL COURSE: An 84-year-old female, who recently had cellulitis to her left lower leg, was admitted to the swing bed unit on 12/10/2019 and discharged 12/17/2019. She received physical and occupational therapy as well as antibiotic therapy to monitor the situation in her leg. Her blood sugars were being followed on a regular basis. She was receiving IV antibiotics. She was also placed on some donepezil because of her mild dementia. The patient was mobilized daily with physical and occupational therapy and she made excellent progress enough to be discharged home and follow up as an outpatient. IMPRESSION: Cellulitis of the left lower leg, dementia, anemia of chronic disease. PLAN: The patient will be discharged home and followed up accordingly as an outpatient. MARTINE WOODSON MD DR: ANNIKA/rachel JOB#: [id number] / [id number]
== END 2019-12-17 09:10 | disposition home health service (06) | DRG 603 ==
LOC: LND 14:57
PROVIDERS: ADMIT Family Medicine; ATTEND Family Medicine
DX: L08.9 Local infection of the skin and subcutaneous tissue, unspecified (principal); J43.9 Emphysema, unspecified; R53.1 Weakness; F03.90 Unspecified dementia, unspecified severity, without behavioral disturbance, psychotic disturbance, mood disturbance, and anxiety; F32.9 Major depressive disorder, single episode, unspecified; M19.90 Unspecified osteoarthritis, unspecified site; H91.90 Unspecified hearing loss, unspecified ear; Z88.2 Allergy status to sulfonamides; Z88.8 Allergy status to other drugs, medicaments and biological substances; Z86.73 Personal history of transient ischemic attack (TIA), and cerebral infarction without residual deficits; Z87.01 Personal history of pneumonia (recurrent); Z83.3 Family history of diabetes mellitus; Z84.1 Family history of disorders of kidney and ureter; Z80.3 Family history of malignant neoplasm of breast; Z82.49 Family history of ischemic heart disease and other diseases of the circulatory system
CPT/HCPCS: 36415; 80202; 81001; 82565; 82947; 87086; J1956; J3370; J7050; 97110; 97116; 97530; 97535

== ENCOUNTER 2019-12-30 19:03 | Inpatient (IN) | payer MEDICARE ==
[~2019-12-30] VITALS: Ht 152.4 cm; Wt 62.0 kg
[2019-12-30 20:19] VITALS: BP 157/84
[2019-12-30] MEDS ORDERED: ALPRAZolam 0.25 MG TABLET PO PRN (21:00)
[2019-12-30] MEDS ORDERED: HEPARIN for IV BOLUS 10,000 UNIT/10 ML VIAL. IV PRN ×3 (21:00)
[2019-12-30] MEDS ORDERED: HEPARIN for IV BOLUS 10,000 UNIT/10 ML VIAL. IV ONE (21:00)
[2019-12-30] MEDS ORDERED: traMADol 50 MG TABLET PO PRN (21:00)
[2019-12-30] MEDS ORDERED: HEPARIN 25,000UTS/250ML PREMIX 250 ML IV PRN (21:00)
[2019-12-30 23:08] VITALS: BP 129/77
[2019-12-30] MEDS: LACTOBACILLUS RHAMNOSUS GG 1 CAPSULE. PO SCH (23:16)
[2019-12-30] MEDS: rOPINIRole 1 MG TABLET. PO SCH (23:16)
[2019-12-30] MEDS: HEPARIN 25,000UTS/250ML PREMIX 250 ML IV PRN (23:24)
--- NOTE | 2019-12-31 00:12 | NUR ---
PT is a direct admission for DVT to LLE with noted cellulitis to LLE. Dressing changed. IV placed (6 attempts). Reviewed with the PT her PMH, PSH, SH, FH and medications. PT with complaints of bilateral knee pain and LLE pain. PT oriented to unit. Daughter dropped off PT at door.
[2019-12-31 06:06] VITALS: BP 124/77
[2019-12-31 06:28] LABS: BASO % 0 % (0-3); EOS # 0.3 x10^3/uL (0.0-0.7); EOS % 4 % (0-3); HEMOGLOBIN 12.8 g/dL (12.0-15.5); LYMPH # 1.9 x10^3/uL (1.0-4.8); LYMPH % 30 % (24-48); MEAN CORPUSCULAR HEMOGLOBIN 32 pg (25-35); MEAN CORPUSCULAR HGB CONC 34 g/dL (31-37); MEAN CORPUSCULAR VOLUME 94 fL (79-100); MONO # 0.7 x10^3/uL (0.0-1.1); MONO % 11 % (0-9); NEUT # 3.4 x10^3uL (1.8-7.7); NEUT % 55 % (31-73); PLATELET COUNT 205 x10^3/uL (140-400); RED BLOOD COUNT 4.03 x10^6/uL (3.50-5.40); RED CELL DISTRIBUTION WIDTH 12.4 % (11.5-14.5); WHITE BLOOD COUNT 6.2 x10^3/uL (4.0-11.0)
[2019-12-31 06:35] LABS: CALCIUM 9.8 mg/dL (8.5-10.1); GFR 52.6; POTASSIUM 4.4 mmol/L (3.5-5.1)
[2019-12-31] MEDS: POTASSIUM CHLORIDE 20 MEQ TABLET.ER. PO SCH (09:08)
[2019-12-31] MEDS: ATENOLOL 25 MG TABLET PO SCH (09:08)
[2019-12-31] MEDS: VENLAFAXINE XR 37.5 MG CAP.ER.24H. PO SCH (09:08)
[2019-12-31] MEDS: LACTOBACILLUS RHAMNOSUS GG 1 CAPSULE. PO SCH ×2 (09:08→22:18)
[2019-12-31] MEDS: hydroCHLOROthiazide 12.5 MG CAPSULE PO SCH (09:08)
[2019-12-31] MEDS ORDERED: IOHEXOL 350 MG/ML 100 ML VIAL. IV ONE (09:15)
[2019-12-31 10:32] VITALS: BP 133/71
--- NOTE | 2019-12-31 12:02 | RAD ---
Examination: CT angiography chest HISTORY: History of positive DVT, shortness of breath COMPARISON: 04/24/2019 TECHNIQUE: Axial CT angiographic images of chest were performed with IV contrast. Coronal and sagittal 3-D MIP reformats are performed Exposure: One or more of the following individualized dose reduction techniques were utilized for this examination: 1. Automated exposure control 2. Adjustment of the mA and/or kV according to patient size 3. Use of iterative reconstruction technique FINDINGS: The central airways are patent. The heart size grossly appears unremarkable. The caliber of the aorta grossly appears unremarkable. Moderate aortic atherosclerosis There is a filling defect identified in the distal left lower lobe pulmonary artery at its branching point likely pulmonary embolus. Noted likely significant mediastinal lymphadenopathy. Faint airspace opacities identified in the right upper lobe, left upper lobe of the lung. Moderate degenerative changes thoracic spine. There is mild compression change of T7 vertebral IMPRESSION: 1. Findings consistent with pulmonary embolus left lower lobe pulmonary artery. 2. Faint airspace opacities identified in the bilateral upper lobes likely atelectasis or infiltrates. FOR INTERNAL CODING PURPOSES Critical result: Findings discussed with patient's nurse Martine at 12/31/2019 11:55 AM. RESULT CODE: (C) Electronically signed by: Eduardo Lilly MD (12/31/2019 11:59 AM) [id number]
--- NOTE | 2019-12-31 13:57 | NUR ---
THIS RN RECEIVED CRITICAL RESULT FROM RADIOLOGY, CHEST CTA- PE IN LLL. DR. WOODSON NOTIFIED. WILL CTM.
[2019-12-31 14:30] VITALS: BP 136/69
[2019-12-31] MEDS: MULTIVITAMIN with MINERAL TABLET. PO SCH (16:08)
[2019-12-31] MEDS: ASCORBIC ACID 500 MG TABLET PO SCH (16:08)
--- NOTE | 2019-12-31 16:15 | NUR ---
Wound Care Wound Type/Assessment: patient seen per wound care consult. see wound assessment. patient has 3 open areas on the LLE. the wounds were cleaned, measured and pictured and redressed at this time with Xeroform gauze with non adherent foam with Kerlix and tape. TALAT Beck at bedside. Treatment Recommendations/Plan: Recommendations of cleansing the wounds then apply Xeroform gauze with abd pad, Kerlix and tape, change daily. Discharge Recommendations for dressings: Recommendations of continuing with the recommended dressing. Notified TALAT Beck about the POC and wound care will continue to f/u for changes.
[2019-12-31 19:34] VITALS: BP 117/82
[2019-12-31] MEDS: rOPINIRole 1 MG TABLET. PO SCH (22:19)
[2019-12-31 22:51] VITALS: BP 136/78
[2020-01-01] MEDS: HEPARIN 25,000UTS/250ML PREMIX 250 ML IV PRN (05:39)
[2020-01-01 06:12] VITALS: BP 147/80
[2020-01-01 07:41] LABS: CALCIUM 9.2 mg/dL (8.5-10.1); CREATININE 1.1 mg/dL (0.6-1.0); GFR 47.1; POTASSIUM 4.1 mmol/L (3.5-5.1)
[2020-01-01] MEDS: hydroCHLOROthiazide 12.5 MG CAPSULE PO SCH (09:22)
[2020-01-01] MEDS: ASPIRIN CHEWABLE 81 MG TABLET. PO SCH (09:22)
[2020-01-01] MEDS: POTASSIUM CHLORIDE 20 MEQ TABLET.ER. PO SCH (09:22)
[2020-01-01] MEDS: VENLAFAXINE XR 37.5 MG CAP.ER.24H. PO SCH (09:22)
[2020-01-01] MEDS: LACTOBACILLUS RHAMNOSUS GG 1 CAPSULE. PO SCH ×2 (09:22→21:38)
[2020-01-01] MEDS: ATENOLOL 25 MG TABLET PO SCH (09:22)
[2020-01-01] MEDS: MULTIVITAMIN with MINERAL TABLET. PO SCH (09:22)
[2020-01-01] MEDS: ASCORBIC ACID 500 MG TABLET PO SCH (10:45)
[2020-01-01 11:30] VITALS: BP 109/68
[2020-01-01 13:02] LABS: BASO % 0 % (0-3); EOS # 0.2 x10^3/uL (0.0-0.7); EOS % 4 % (0-3); HEMATOCRIT 36.2 % (36.0-47.0); LYMPH % 20 % (24-48); MEAN CORPUSCULAR HEMOGLOBIN 31 pg (25-35); MEAN CORPUSCULAR HGB CONC 33 g/dL (31-37); MEAN CORPUSCULAR VOLUME 94 fL (79-100); MONO # 0.5 x10^3/uL (0.0-1.1); MONO % 10 % (0-9); NEUT # 3.4 x10^3uL (1.8-7.7); NEUT % 66 % (31-73); PLATELET COUNT 184 x10^3/uL (140-400); RED BLOOD COUNT 3.86 x10^6/uL (3.50-5.40); RED CELL DISTRIBUTION WIDTH 12.1 % (11.5-14.5); WHITE BLOOD COUNT 5.1 x10^3/uL (4.0-11.0)
[2020-01-01 15:12] VITALS: BP 112/60
--- NOTE | 2020-01-01 15:26 | PN ---
DATE: SUBJECTIVE: The patient came in with severe DVT of her left thigh, left femoral vein and also pulmonary embolus in the left lower lobe. The patient otherwise says she is feeling a little better. She is still on IV heparin drip. There is consideration of what medication we put her on since this patient being 84 years old, there may be a tendency of falling. We discussed in detail. She has not fallen; however, obviously at higher risk. She does have a walker at home, which she said she did use. We will need to place her on some type of oral anticoagulant and make further adjustments on her medications. OBJECTIVE: VITAL SIGNS: Otherwise, blood pressure 110/70, respiratory rate 20, pulse 90, afebrile. LUNGS: Diminished throughout, poor movement of air, but basically clear. CARDIOVASCULAR: Regular sinus rhythm. ABDOMEN: Soft. EXTREMITIES: Left leg is less swollen than it has been, but still swollen. We will make further evaluation on her as indicated. IMPRESSION: Deep venous thrombosis of the left thigh, femoral vein and pulmonary emboli of the left lower lobe. MARTINE WOODSON MD DR: ANNIKA/rachel JOB#: [id number] / [id number]
[2020-01-01 19:00] VITALS: BP 149/82
[2020-01-01] MEDS: rOPINIRole 1 MG TABLET. PO SCH (21:37)
[2020-01-01 23:00] VITALS: BP 113/65
[2020-01-02 06:08] VITALS: BP 114/70
[2020-01-02] MEDS: LACTOBACILLUS RHAMNOSUS GG 1 CAPSULE. PO SCH ×2 (08:51→22:03)
[2020-01-02] MEDS: VENLAFAXINE XR 37.5 MG CAP.ER.24H. PO SCH (08:51)
[2020-01-02] MEDS: MULTIVITAMIN with MINERAL TABLET. PO SCH (08:51)
[2020-01-02] MEDS: ASCORBIC ACID 500 MG TABLET PO SCH (08:51)
[2020-01-02] MEDS: ATENOLOL 25 MG TABLET PO SCH (08:52)
[2020-01-02] MEDS: hydroCHLOROthiazide 12.5 MG CAPSULE PO SCH (08:52)
[2020-01-02] MEDS: POTASSIUM CHLORIDE 20 MEQ TABLET.ER. PO SCH (08:52)
[2020-01-02 10:36] VITALS: BP 132/66
[2020-01-02 15:57] VITALS: BP 136/73
[2020-01-02 19:00] VITALS: BP 137/67
[2020-01-02] MEDS: rOPINIRole 1 MG TABLET. PO SCH (22:03)
[2020-01-02] MEDS: HEPARIN 25,000UTS/250ML PREMIX 250 ML IV PRN (22:56)
[2020-01-02 23:00] VITALS: BP 134/76
--- NOTE | 2020-01-02 23:02 | PN ---
DATE: SUBJECTIVE: An 84-year-old with pulmonary embolus and severe left leg thrombus as well as stasis dermatitis to the left lower leg. The patient's lower leg is draining copious amounts of serosanguineous fluid that is saturating her dressings. The patient has good pulses in the leg and the left upper thigh is still markedly swollen. The lungs are diminished, but basically clear. OBJECTIVE: VITAL SIGNS: Otherwise, blood pressure that of 136/70, respiratory rate 20, pulse 90, afebrile. GENERAL: The patient is alert and oriented. LUNGS: Diminished, but clear. CARDIOVASCULAR: Stable. ABDOMEN: Soft, nontender. EXTREMITIES: Left leg markedly swollen and hard to touch consistent with her left leg thrombus. IMPRESSION AND PLAN: Pulmonary embolus of left lower lobe as well as thrombus of the left upper thigh area fairly significant and severe stasis, insufficiency of the left lower leg. We will put in a boot on that. We tried to convert her over to oral anticoagulants and hopefully either to a nursing facility or home depending on her overall mobility. MARTINE WOODSON MD DR: ANNIKA/rachel JOB#: [id number] / [id number]
[2020-01-03 06:06] VITALS: BP 159/82
[2020-01-03] MEDS: POTASSIUM CHLORIDE 20 MEQ TABLET.ER. PO SCH (07:59)
[2020-01-03] MEDS: ASPIRIN CHEWABLE 81 MG TABLET. PO SCH (07:59)
[2020-01-03] MEDS: LACTOBACILLUS RHAMNOSUS GG 1 CAPSULE. PO SCH (08:00)
[2020-01-03] MEDS: ATENOLOL 25 MG TABLET PO SCH (08:00)
[2020-01-03] MEDS: MULTIVITAMIN with MINERAL TABLET. PO SCH (08:00)
[2020-01-03] MEDS: VENLAFAXINE XR 37.5 MG CAP.ER.24H. PO SCH (08:00)
[2020-01-03] MEDS: ASCORBIC ACID 500 MG TABLET PO SCH (08:00)
[2020-01-03] MEDS: hydroCHLOROthiazide 12.5 MG CAPSULE PO SCH (08:00)
[2020-01-03] MEDS ORDERED: APIXABAN 5 MG TABLET. PO SCH (09:00)
--- NOTE | 2020-01-03 09:14 | PN ---
DATE: 12/31/2019 SUBJECTIVE: The patient came in with swelling to her left leg. She had a DVT and also, the patient had a situation of severe pulmonary emboli as well. The patient is making fairly good progress overall. She is on a heparin drip. It will be somewhat of an interesting situation since she is elderly and has high risk for falling as well. OBJECTIVE: VITAL SIGNS: Blood pressure 136/70, respiratory rate 20, pulse 75, afebrile. LUNGS: Diminished, but clear. CARDIOVASCULAR: Stable. ABDOMEN: Soft, diffuse tenderness. EXTREMITIES: No clubbing, cyanosis, nor edema. NEUROLOGIC: Intact baseline with mild dementia with memory loss. MARTINE WOODSON MD DR: ANNIKA/rachel JOB#: [id number] / [id number]
[2020-01-03] MEDS ORDERED: APIX5TAB3 PO (10:23)
[2020-01-03] MEDS ORDERED: ASCO500T4 PO (10:23)
--- NOTE | 2020-01-03 10:27 | DISCH ---
HOME HEALTH DISCHARGE/MEDS DISCHARGE INFORMATION: Discharge Date: Jan 03, 2020 Final Diagnosis: DVT left leg, pulmonary embolism, left lower leg wounds Condition on Discharge: Stable CODE STATUS: Code Status: Full HOME HEALTH: Face to Face: I certify this patient is under my care and that I, or a nurse practitioner or physician's certified medical technician assistant working with me, had a face to face encounter that meets the physician face to face encounter requirements with this patient on 01/03/20. Medical Condition(s): HTN, Other (wounds) Physical Therapy For: Evalulation/Treatment Homebound Status Met By: Poor coordination w/ amb., Unsteady balance w/ amb,, Limited distance walking POST DISCHARGE ORDERS: Activity Instructions for Disc: Activity as tolerated Weight Bearing Status after Di: No restrictions DIET AFTER DISCHARGE: Regular Wound/Incision Care: Other, see below (instructions sent with referral) CERTIFICATION STATEMENT: Certification Statement: Based on the above finding, I certify that this patient is confined to the home and needs intermittent snf care, physical therapy and/or speech therapy, or continues to need occupational therapy.~ This patient is under my care, and I have initiated the establishment of the plan of care.~ This patient will be followed by myself or a community physician who will periodically review the plan of care. DISCHARGE MEDICATIONS: Home Meds Active Scripts Cephalexin (CEPHALEXIN) 500 Mg Capsule, 1 CAP PO TID for cellulitis, #30 CAP Prov:MARTINE WOODSON MD 12/17/19 Lactobacillus Rhamnosus Gg (CULTURELLE) 1 Each Cap.sprink, 1 CAP PO BID for probiotic for 90 Days, #180 CAP 2 Refills Prov:MARTINE WOODSON MD 12/17/19 Ropinirole Hcl (ROPINIROLE HCL) 1 Mg Tablet, 1 MG PO HS for tremors/restlsess leg for 30 Days, #30 TAB 2 Refills Prov:MARTINE WOODSON MD 04/27/19 Reported Medications Multivitamin (MULTIVITAMINS) 1 Each Capsule, 1 CAP PO DAILY for SUPPLEMENT for 30 Days, #30 CAP 0 Refills 12/07/19 Hydrochlorothiazide (HYDROCHLOROTHIAZIDE TABLET) 12.5 Mg Tablet, 12.5 MG PO DAILY for DIURETIC, TAB 0 Refills 12/07/19 Diphenhydramine Hcl (DIPHENHYDRAMINE HCL) 25 Mg Tablet, 25 MG PO DAILY for allergy relief, TAB 04/24/19 Calcium Carbonate (CALCIUM) 500 Mg Tab.chew, 1200 MG PO DAILY for vitamin sup, TAB.CHEW 04/24/19 Aspirin (ASPIRIN) 81 Mg Tab.chew, 81 MG PO QODAY for Anticoagulant, TAB 03/10/19 Tramadol Hcl (TRAMADOL HCL) 50 Mg Tablet, 50 MG PO PRN Q4HRS PRN for PAIN, TAB 03/10/19 Venlafaxine Hcl (VENLAFAXINE HCL ER) 75 Mg Cap.er.24h, 75 CAP PO DAILY for nerve pain and antidepressant 03/09/19 Potassium Chloride (KLOR-CON M20) 20 Meq Tab.er.prt, 20 MEQ PO DAILY for supplement, TAB.SR 02/12/19 Alprazolam (XANAX) 0.25 Mg Tablet, 0.25 MG PO PRN BID PRN for ANXIETY / AGITATION 02/12/19 Atenolol (ATENOLOL ) 50 Mg Tablet, 25 MG PO DAILY for ANTIHYPERTENSIVE 07/06/18 MARTINE WOODSON MD Jan 03, 2020 10:27
[2020-01-03 11:26] VITALS: BP 104/63
--- NOTE | 2020-01-03 11:40 | NUR ---
NURSING NOTE DISCHARGE PT DISCHARGED HOME WITH [facility] SET UP BY CASE MANAGEMENT. PT GIVEN WRITTEN AND VERBAL DISCHARGE INSTRUCTIONS. PT SCRIPTS FOR ELIQUIS AND VIT C SENT TO [facility]. PT STATES SHE WILL CONTACT THE DOCTOR ABOUT SAMPLES. CASE MANAGEMENT INFORMED ABOUT WOUND CARE TO SEND FOR HOME HEALTH WELL. PT PICKED UP BY DAUGHTER. NO COMPLICATIONS. TALAT PIKE.
--- NOTE | 2020-01-03 19:22 | DS ---
DATE OF DISCHARGE: 01/03/2020 HOSPITAL COURSE: The patient is an 84-year-old female, came in with severe left thigh swelling going up into her groin. The patient denied chest pain, shortness of breath at the time, but a CTA demonstrated she had a left lower lobe pulmonary emboli. The patient made good progress. She was placed on heparin to cut down on the inflammation of the thigh. She also had some inflammation and stasis dermatitis of her left lower leg and that was wrapped with an Unna boot. The patient's last blood pressure 104/63, respiratory rate 20, pulse 66. The patient's white count was 5.1, hemoglobin 12 and 36. Chemistries were all within range. Last BUN and creatinine 18 and 1.1, blood sugar 147. The patient will be started on Eliquis 10 mg b.i.d. for a week and then 5 mg b.i.d. indefinitely as she continues to make some progress there. Otherwise, the patient was discharged home and told to be careful, use a walker and make further evaluation on her as indicated as an outpatient. IMPRESSION: Therefore, pulmonary embolus of the left lower lobe as well as thrombus of the left upper thigh, significant severe stasis and venous insufficiency of the left lower leg, mild dementia. PLAN: The patient will be on a regular diet, decreased activity. Return to clinic in 7-10 days or sooner as needed. Samples were given to her from the office. MARTINE WOODSON MD DR: ANNIKA/rachel JOB#: [id number] / [id number]
== END 2020-01-03 11:47 | disposition home health service (06) | DRG 299 ==
LOC: 1 SOUTH 19:03
PROVIDERS: ADMIT Family Medicine; ATTEND Family Medicine
DX: I82.412 Acute embolism and thrombosis of left femoral vein (principal); I26.99 Other pulmonary embolism without acute cor pulmonale; I82.432 Acute embolism and thrombosis of left popliteal vein; I87.2 Venous insufficiency (chronic) (peripheral); F03.90 Unspecified dementia, unspecified severity, without behavioral disturbance, psychotic disturbance, mood disturbance, and anxiety; I10 Essential (primary) hypertension; E78.5 Hyperlipidemia, unspecified; Z79.899 Other long term (current) drug therapy; Z90.49 Acquired absence of other specified parts of digestive tract; F41.9 Anxiety disorder, unspecified; Z88.8 Allergy status to other drugs, medicaments and biological substances
CPT/HCPCS: 36415; 71275; 80048; 85025; 85610; 85730; J1644; Q9967

== ENCOUNTER → 2019-12-30 | Outpatient (CLI) | payer MEDICARE ==
[2019-12-17 07:46] VITALS: BP 121/58
--- NOTE | 2019-12-30 18:49 | RAD ---
Exam: Left lower extremity venous duplex study INDICATION: Leg swelling TECHNIQUE: Using a combination of real-time ultrasound imaging and color-flow and pulse Doppler imaging techniques along with graded compression and augmentation, duplex evaluation of the deep venous systems of leftlower extremity was performed. Multiple images were obtained. Findings: Partially occlusive thrombus is noted in the left common femoral vein and superficial femoral vein. The popliteal and posterior tibial vein are normal in appearance. Occlusive thrombus is noted in the greater saphenous vein. IMPRESSION: Partially occlusive thrombus in the left common femoral superficial femoral vein. Occlusive thrombus in the greater saphenous vein. Electronically signed by: Jackie Estrada MD (12/30/2019 6:46 PM) [id number]
== END | disposition home or self-care (01) ==
LOC: US 17:39
PROVIDERS: ATTEND Family Medicine
DX: I82.812 Embolism and thrombosis of superficial veins of left lower extremity (principal); I82.412 Acute embolism and thrombosis of left femoral vein; I82.432 Acute embolism and thrombosis of left popliteal vein
CPT/HCPCS: 93971

== ENCOUNTER 2020-01-17 19:37 | Inpatient (IN) | payer MEDICARE ==
[~2020-01-17] VITALS: Ht 144.8 cm; Wt 169.2 kg
[~2020-01-17 19:37] MED LIST changes: +APIX5TAB3 PO; +ASCO500T4 PO
--- NOTE | 2020-01-17 20:28 | PHYS DOC ---
Past History Past Medical History: Arthritis, COPD, Depression, Hypertension, TIA, Other Past Surgical History: Tubal ligation, Other Additional Past Surgical Histo: cataract surgery Smoking: Non-smoker Alcohol Use: None Drug Use: None Adult General Chief Complaint Chief Complaint: LACERATION/AVULSION HPI HPI Patient is a 84 year old female who presents with complaint of head injury. The patient states that she had an accidental fall at her daughter's house. She notes that her knees gave out on her. States that she has history of arthritis in her knees and notes that while she was walking they gave out, causing her to lose her balance and fall back. She states that she hit the back of her head on the front door. She did not lose consciousness. Notes posterior head and neck pain after the fall. Also notes pain along the right side of her back. Denies weakness in the lower extremities. Currently on Eliquis therapy for treatment of DVT. Follows with Dr. Woodson for primary care. Review of Systems Review of Systems Constitutional: Denies fever or chills [] Eyes: Denies change in visual acuity, redness, or eye pain [] HENT: Head injury, denies nasal congestion or sore throat [] Respiratory: Denies cough or shortness of breath [] Cardiovascular: Denies chest pain or edema [] GI: Denies abdominal pain, nausea, vomiting, bloody stools or diarrhea [] : Denies dysuria or hematuria [] Musculoskeletal: Neck pain, right back pain [] Integument: Scalp laceration, denies rash [] Neurologic: Denies headache, focal weakness or sensory changes [] All other systems were reviewed and found to be within normal limits, except as documented in this note. Allergies Allergies Allergies Coded Allergies Type Severity Reaction Last Updated Verified Sulfa (Sulfonamide Antibiotics) Allergy Intermediate Hives 04/23/19 Yes promethazine Allergy Intermediate Hives 04/23/19 Yes Physical Exam Physical Exam Constitutional: Alert, afebrile, no acute distress. [] HENT: Normocephalic, 2.5 cm longitudinal laceration to right occipital scalp bilateral external ears normal, oropharynx moist, no oral exudates, nose normal. [] Eyes: PERRLA, EOMI, conjunctiva normal, no discharge. [] Neck: C-collar in place, admits midline tenderness on palpation, supple, no stridor. [] Cardiovascular:Heart rate regular rhythm, no murmur [] Lungs & Thorax: Bilateral breath sounds clear to auscultation [] Abdomen: Bowel sounds normal, soft, no tenderness, no masses, no pulsatile masses. [] Skin: Warm, dry, no erythema, no rash. [] Back: Right mid thoracic tenderness to palpation below tip of right scapula, no midline tenderness, no CVA tenderness. [] Extremities: No tenderness, no cyanosis, no clubbing, ROM intact. [] Neurologic: Alert and oriented X 3, normal motor function, normal sensory function, no focal deficits noted. [] Current Patient Data Vital Signs Vital Signs Date Time Temp Pulse Resp B/P (MAP) Pulse Ox O2 Delivery O2 Flow Rate FiO2 01/17/20 19:37 98.6 68 18 112/46 (68) 97 Room Air Vital Signs Date Time Temp Pulse Resp B/P (MAP) Pulse Ox O2 Delivery O2 Flow Rate FiO2 01/17/20 22:37 Room Air 01/17/20 19:37 98.6 68 18 112/46 (68) 97 Lab Results Laboratory Tests Test 01/17/20 20:10 White Blood Count 4.6 x10^3/uL Red Blood Count 3.81 x10^6/uL Hemoglobin 11.9 g/dL Hematocrit 36.3 % Mean Corpuscular Volume 95 fL Mean Corpuscular Hemoglobin 31 pg Mean Corpuscular Hemoglobin Concent 33 g/dL Red Cell Distribution Width 13.0 % Platelet Count 168 x10^3/uL Neutrophils (%) (Auto) 61 % Lymphocytes (%) (Auto) 22 % Monocytes (%) (Auto) 13 % Eosinophils (%) (Auto) 4 % Basophils (%) (Auto) 0 % Neutrophils # (Auto) 2.8 x10^3uL Lymphocytes # (Auto) 1.0 x10^3/uL Monocytes # (Auto) 0.6 x10^3/uL Eosinophils # (Auto) 0.2 x10^3/uL Basophils # (Auto) 0.0 x10^3/uL Sodium Level 138 mmol/L Potassium Level 3.9 mmol/L Chloride Level 102 mmol/L Carbon Dioxide Level 28 mmol/L Anion Gap 8 Blood Urea Nitrogen 25 mg/dL Creatinine 1.3 mg/dL Estimated GFR (Cockcroft-Gault) 38.8 BUN/Creatinine Ratio 19 Glucose Level 162 mg/dL Calcium Level 9.4 mg/dL Total Bilirubin 0.2 mg/dL Aspartate Amino Transf (AST/SGOT) 19 U/L Alanine Aminotransferase (ALT/SGPT) 23 U/L Alkaline Phosphatase 78 U/L Total Protein 7.8 g/dL Albumin 3.2 g/dL Albumin/Globulin Ratio 0.7 Current Medications Medications (Trade) Dose Ordered Sig/Deo Route PRN Reason Start Time Stop Time Status Last Admin Dose Admin Tramadol HCl (Ultram) 50 mg 1X ONCE PO 01/17/20 23:00 01/17/20 23:01 01/17/20 22:37 EKG EKG Not performed [] Radiology/Procedures Radiology/[place] [address] IMAGING REPORT Signed PATIENT: SIDNEY STANTON ACCOUNT: [id number] : 1935 LOCATION: ER AGE: 84 SEX: F EXAM STATUS: REG ER ORD. PHYSICIAN: CHANTE GUZMAN MD REASON: fall, head injury, neck pain PROCEDURE: CT HEAD AND CERVICAL SPINE WO Exam: CT head and cervical spine without contrast INDICATION: Fall, head injury TECHNIQUE: Sequential axial images through the head and cervical spine were obtained without the administration of IV contrast. Comparisons: None FINDINGS: Head: No focal parenchymal lesion or hemorrhage is identified. There is no midline shift or sulcal effacement. Mild patchy hypodensity in the periventricular white matter No acute vascular territory infarction is identified. Lantigua-white distinction is preserved. The ventricular system is within normal limits without compression hydrocephalus. The basal cisterns are well maintained. The visualized portions of the paranasal sinuses and mastoid air cells are well-pneumatized. No acute fractures. Cervical spine: Vertebral body heights and alignment are well-maintained. Fracture to the cervical spine is not identified. Mild multilevel spondylotic change in cervical spine with degenerative disc disease greatest at C5-C6. Mild bilateral facet arthropathy is also noted. There is a elongated right lobe of thyroid which is heterogenous in appearance. IMPRESSION: 1. No acute intracranial abnormality. 2. Negative CT C-spine for acute traumatic injury. Exposure: One or more of the following in the visualized dose reduction techniques were utilized for this examination: 1. Automated exposure control 2. Adjustment of the MA and/or KV according to patient size Use of iterative of reconstructive technique Electronically signed by: Jackie Bowers MD (01/17/2020 9:09 PM) [id number] DICTATED AND SIGNED BY: JACKIE BOWERS MD DATE: 01/17/202108 CC: MARTINE WOODSON MD; CHANTE GUZMAN MD ~ [place] [address] IMAGING REPORT Signed PATIENT: SIDNEY STANTON ACCOUNT: [id number] : 1935 LOCATION: ER AGE: 84 SEX: F EXAM STATUS: REG ER ORD. PHYSICIAN: CHANTE GUZMAN MD REASON: fall, right posterior rib pain PROCEDURE: PORTABLE CHEST 1V Exam: Chest one view INDICATION: Fall TECHNIQUE: Frontal view of the chest Comparisons: 04/23/2019 FINDINGS: Heart is mildly enlarged. Pulmonary vessels are within normal limits. The lung and pleural spaces are clear. IMPRESSION: No acute pulmonary process. Electronically signed by: Jackie Bowers MD (01/17/2020 10:32 PM) [id number] DICTATED AND SIGNED BY: JACKIE BOWERS MD DATE: 01/17/202231 CC: MARTINE WOODSON MD; CHANTE GUZMAN MD ~ Indication: Scalp laceration Procedure: The patient was placed in the appropriate position. The area was then cleansed with high-pressure saline. The laceration was closed using skin jean. The wound area was left uncovered. Total repaired wound length: 2.5 cm. Other Items: Total staple count: 2 The patient tolerated the procedure without difficulty. Complications: None.[] Course & Med Decision Making Course & Med Decision Making Pertinent Labs and Imaging studies reviewed. (See chart for details) Patient's laceration was repaired as outlined in procedure note. Imaging shows no evidence of acute intracranial hemorrhage. The patient's daughter however is concerned given the patient's head injury and currently being on Eliquis therapy that the patient could potentially have worsening symptoms and is concerned about her safety at home. She would like the patient admitted to the hospital for further observation and care. I spoke with Dr. Woodson who agreed to admi t patient. We agreed that patient would need admission to ICU for appropriate neuro monitoring. Dr. Woodson approved admission under inpatient status. [] Dragon Disclaimer Dragon Disclaimer This electronic medical record was generated, in whole or in part, using a voice recognition dictation system. Departure Departure: Impression: Primary Impression: Closed head injury Additional Impressions: Fall from standing Scalp laceration Medication induced coagulopathy Disposition: ADMITTED INPATIENT Admitting Physician: Martine Woodson Condition: STABLE Referrals: MARTINE WOODSON MD (PCP) Justification of Admission: Justification of Admission: Justification of Admission Dx: Yes Comments: Closed head injury, currently on blood thinner therapy Problem Qualifiers Primary Impression: Closed head injury Encounter type: initial encounter Qualified Codes: S09.90XA - Unspecified injury of head, initial encounter Additional Impressions: Fall from standing Encounter type: initial encounter Qualified Codes: W19.XXXA - Unspecified fall, initial encounter Scalp laceration Encounter type: initial encounter Qualified Codes: S01.01XA - Laceration without foreign body of scalp, initial encounter CHANTE GUZMAN MD Jan 17, 2020 20:28
--- NOTE | 2020-01-17 21:12 | RAD ---
Exam: CT head and cervical spine without contrast INDICATION: Fall, head injury TECHNIQUE: Sequential axial images through the head and cervical spine were obtained without the administration of IV contrast. Comparisons: None FINDINGS: Head: No focal parenchymal lesion or hemorrhage is identified. There is no midline shift or sulcal effacement. Mild patchy hypodensity in the periventricular white matter No acute vascular territory infarction is identified. Lantigua-white distinction is preserved. The ventricular system is within normal limits without compression hydrocephalus. The basal cisterns are well maintained. The visualized portions of the paranasal sinuses and mastoid air cells are well-pneumatized. No acute fractures. Cervical spine: Vertebral body heights and alignment are well-maintained. Fracture to the cervical spine is not identified. Mild multilevel spondylotic change in cervical spine with degenerative disc disease greatest at C5-C6. Mild bilateral facet arthropathy is also noted. There is a elongated right lobe of thyroid which is heterogenous in appearance. IMPRESSION: 1. No acute intracranial abnormality. 2. Negative CT C-spine for acute traumatic injury. Exposure: One or more of the following in the visualized dose reduction techniques were utilized for this examination: 1. Automated exposure control 2. Adjustment of the MA and/or KV according to patient size Use of iterative of reconstructive technique Electronically signed by: Jackie Estrada MD (01/17/2020 9:09 PM) [id number]
[2020-01-17 22:05] LABS: BASO % 0 % (0-3); EOS # 0.2 x10^3/uL (0.0-0.7); EOS % 4 % (0-3); HEMATOCRIT 36.3 % (36.0-47.0); HEMOGLOBIN 11.9 g/dL (12.0-15.5); LYMPH % 22 % (24-48); MEAN CORPUSCULAR HEMOGLOBIN 31 pg (25-35); MEAN CORPUSCULAR HGB CONC 33 g/dL (31-37); MEAN CORPUSCULAR VOLUME 95 fL (79-100); MONO # 0.6 x10^3/uL (0.0-1.1); MONO % 13 % (0-9); NEUT # 2.8 x10^3uL (1.8-7.7); NEUT % 61 % (31-73); PLATELET COUNT 168 x10^3/uL (140-400); RED BLOOD COUNT 3.81 x10^6/uL (3.50-5.40); WHITE BLOOD COUNT 4.6 x10^3/uL (4.0-11.0)
[2020-01-17 22:13] LABS: CALCIUM 9.4 mg/dL (8.5-10.1); CREATININE 1.3 mg/dL (0.6-1.0); GFR 38.8; POTASSIUM 3.9 mmol/L (3.5-5.1)
[2020-01-17 22:18] LABS: ALBUMIN 3.2 g/dL (3.4-5.0); ALBUMIN/GLOBULIN RATIO 0.7 (1.0-1.7); TOTAL BILIRUBIN 0.2 mg/dL (0.2-1.0); TOTAL PROTEIN 7.8 g/dL (6.4-8.2)
--- NOTE | 2020-01-17 22:35 | RAD ---
Exam: Chest one view INDICATION: Fall TECHNIQUE: Frontal view of the chest Comparisons: 04/23/2019 FINDINGS: Heart is mildly enlarged. Pulmonary vessels are within normal limits. The lung and pleural spaces are clear. IMPRESSION: No acute pulmonary process. Electronically signed by: Jackie Estrada MD (01/17/2020 10:32 PM) [id number]
[2020-01-17] MEDS ORDERED: traMADol 50 MG TABLET PO ONE (23:00)
[2020-01-18] VITALS (16 sets, daily range): BP systolic 102–138; BP diastolic 56–80
[2020-01-18] MEDS ORDERED: ACETAMINOPHEN 325 MG TABLET PO PRN
[2020-01-18] MEDS ORDERED: ONDANSETRON PF 4 MG/2 ML VIAL. IVP PRN
[2020-01-18] MEDS: IV NORMAL SALINE 1,000ML 1,000 ML IV SCH ×3 (00:54→20:08)
--- NOTE | 2020-01-18 01:37 | NUR ---
The patient, SIDNEY STANTON, 84 y/o, F admitted by MARTINE WOODSON MD, was given written information regarding hospital policies, unit procedures and contact persons. Health history and home medications were reviewed with patient. Bed locked and in lowest position, call light within reach. Valuables were checked and left in room.
[2020-01-18 06:13] LABS: BASO % 1 % (0-3); EOS # 0.2 x10^3/uL (0.0-0.7); EOS % 3 % (0-3); HEMATOCRIT 35.2 % (36.0-47.0); HEMOGLOBIN 11.6 g/dL (12.0-15.5); LYMPH # 1.4 x10^3/uL (1.0-4.8); LYMPH % 28 % (24-48); MEAN CORPUSCULAR HEMOGLOBIN 31 pg (25-35); MEAN CORPUSCULAR HGB CONC 33 g/dL (31-37); MEAN CORPUSCULAR VOLUME 95 fL (79-100); MONO # 0.7 x10^3/uL (0.0-1.1); MONO % 13 % (0-9); NEUT # 2.8 x10^3uL (1.8-7.7); NEUT % 55 % (31-73); PLATELET COUNT 175 x10^3/uL (140-400); RED BLOOD COUNT 3.72 x10^6/uL (3.50-5.40); RED CELL DISTRIBUTION WIDTH 12.8 % (11.5-14.5); WHITE BLOOD COUNT 5.1 x10^3/uL (4.0-11.0)
[2020-01-18 06:28] LABS: CALCIUM 9.2 mg/dL (8.5-10.1); CREATININE 1.1 mg/dL (0.6-1.0); GFR 47.1; POTASSIUM 3.9 mmol/L (3.5-5.1)
[2020-01-18] MEDS ORDERED: APIXABAN 5 MG TABLET. PO SCH (09:00)
[2020-01-18] MEDS ORDERED: FLU VACC QS 2020-21(6MOS+)/PF 0.5 ML SYRINGE. VAX IM ONE (09:00)
[2020-01-18] MEDS ORDERED: ALPRAZolam 0.25 MG TABLET PO PRN (09:00)
[2020-01-18] MEDS ORDERED: traMADol 50 MG TABLET PO PRN (09:00)
[2020-01-18] MEDS ORDERED: CETIRIZINE HCL 10 MG TABLET PO PRN (09:00)
[2020-01-18] MEDS ORDERED: ASPIRIN CHEWABLE 81 MG TABLET. PO SCH (09:30)
[2020-01-18] MEDS: ATENOLOL 25 MG TABLET PO SCH (09:31)
[2020-01-18] MEDS: POTASSIUM CHLORIDE 20 MEQ TABLET.ER. PO SCH (09:31)
[2020-01-18] MEDS: MULTIVITAMIN with MINERAL TABLET. PO SCH (09:31)
[2020-01-18] MEDS: CALCIUM CARBONATE 500 MG TABLET PO SCH (09:31)
[2020-01-18] MEDS: VENLAFAXINE XR 37.5 MG CAP.ER.24H. PO SCH (09:31)
[2020-01-18] MEDS: APIXABAN 5 MG TABLET. PO SCH ×2 (09:32→20:08)
[2020-01-18] MEDS: hydroCHLOROthiazide 12.5 MG CAPSULE PO SCH (09:32)
--- NOTE | 2020-01-18 14:15 | NUR ---
COMMERCIAL INTERN informed me that patient has accidentally removed her PIV. New 20g PIV inserted in right forearm; first attempt successful; patient tolerated procedure well. IV fluids restarted, will continue to monitor.
--- NOTE | 2020-01-18 18:53 | HP ---
ADMIT DATE: HISTORY OF PRESENT ILLNESS: An 84-year-old female came in through the Emergency Room, apparently was trying to walk around and had an accidental fall at daughter's home. Apparently, she was not using her walker as has been instructed. She had problems with her left leg to begin with. They got tangled underneath her causing her to lose her balance and falling back. The patient is on a blood thinner because of a known pulmonary embolus and a severe DVT of her left thigh. The patient notes that she struck the right side of her back as well as her head. She denied apparently any loss of consciousness at that time. She came in through the Emergency Room, did have a laceration to the scalp, which required 3 jean by the [facility] physician. The patient otherwise was admitted for observation because of her blood thinner, her age and the fact obviously of any possibility of bleeding. The patient in turn had a CT scan in the Emergency Room and that was verified as no acute bleed, but obviously these things can take several days, if not weeks to bleed out. The patient was admitted for observation as noted for head trauma and bleeding on a blood thinner with a PE. PAST MEDICAL HISTORY: Cataracts, TIAs, dementia, hypertension, COPD, emphysema, pneumonia, tubal ligation, incontinence, urinary urgency, arthritis, depression, history of smoking in the past. She has a DVT of her left leg as well as a pulmonary emboli. IMMUNIZATIONS: Pneumonia and tetanus are up-to-date. FAMILY HISTORY: Positive for diabetes, kidney disease, gallbladder disease, breast cancer in the mother, coronary artery disease in the father. ALLERGIES: SULFUR. She has an allergy also to PROMETHAZINE. HOME MEDICATIONS: Include Eliquis 5 mg b.i.d., Benadryl, atenolol 50 mg, aspirin, tramadol 50, Effexor 75 mg, Xanax 0.25, Robinul 1 mg at bedtime, calcium carbonate, potassium chloride, hydrochlorothiazide, ascorbic acid and multivitamins. SOCIAL HISTORY: No present smoking, alcohol or drug use. REVIEW OF SYSTEMS: The patient has a sore head, headache, but denies blurred vision, double vision. Denies chest pain, shortness of breath. Denies any melena, hematochezia or hematemesis. Neurologically baseline for her. She does have some mild dementia and memory problems there. PHYSICAL EXAMINATION: GENERAL: This is a pleasant white female. VITAL SIGNS: Blood pressure 129/70, respiratory rate 22, pulse 94, afebrile. HEENT: The patient's head was atraumatic, normocephalic. Eyes PERRLA without jaundice. The mouth and throat were normal. NECK: Supple, without JVD, carotid bruits nor thyromegaly. Neck was a little bit stiff and tender from the fall itself. LUNGS: The patient's lungs were diminished throughout, but basically clear. CARDIOVASCULAR: Regular sinus rhythm, S1, S2, without murmur, rub, thrill or extra heart sounds. ABDOMEN: Soft, diffuse tenderness, no rebound or guarding. Positive bowel sounds, no hepatosplenomegaly. EXTREMITIES: No clubbing, cyanosis or edema. NEUROLOGIC: Intact baseline for her with some memory loss, but otherwise the eyes were PERRLA, EOMI. Moving all extremities well. SKIN: The scalp showed 3 jean in the back of her head. No obvious bleeding at the present time. LABORATORY DATA: The patient's white count was 5, hemoglobin 11 and 35. Chemistries: 139, 3.9, BUN and creatinine 22 and 1.1. Albumin was slightly low at 3.2. IMPRESSION: Accidental fall at home, concussion to the head; history of pulmonary embolus; deep vein thrombosis, on blood thinners; mild dementia, Alzheimer type; cellulitis to the left lower leg, markedly improved. PLAN: The patient will continue to be monitored carefully, make further evaluation on her as indicated and will continue to keep a monitor for any neurological changes secondary to her fall. Otherwise, the patient will be monitored in the ICU for any acute changes of her neurological function. MARTINE WOODSON MD DR: ANNIKA/rachel JOB#: [id number] / [id number]
[2020-01-18] MEDS ORDERED: rOPINIRole 1 MG TABLET. PO SCH (21:00)
[2020-01-19] VITALS (11 sets, daily range): BP systolic 117–145; BP diastolic 52–79
--- NOTE | 2020-01-19 01:55 | NUR ---
Pt awake in bed at change of shift watching the Presidential debate on TV. 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 Pt with left lower leg dressing on r/t cellulitis, C/D/I. Pt refused HS snack but did take medication whole without difficulty. Pt did c/o soreness to back of head and chronic knee pain, PRN Tramadol given. Pt slept great during shift, up only a few times to void on BSC. Pt was DCd here about 10 days ago home with daughter and [facility]. Bed alarm on.
[2020-01-19] MEDS: hydroCHLOROthiazide 12.5 MG CAPSULE PO SCH (08:20)
[2020-01-19] MEDS: CALCIUM CARBONATE 500 MG TABLET PO SCH (08:20)
[2020-01-19] MEDS: VENLAFAXINE XR 37.5 MG CAP.ER.24H. PO SCH (08:20)
[2020-01-19] MEDS: POTASSIUM CHLORIDE 20 MEQ TABLET.ER. PO SCH (08:21)
[2020-01-19] MEDS: ATENOLOL 25 MG TABLET PO SCH (08:21)
[2020-01-19] MEDS: MULTIVITAMIN with MINERAL TABLET. PO SCH (08:21)
[2020-01-19] MEDS: APIXABAN 5 MG TABLET. PO SCH (08:21)
--- NOTE | 2020-01-19 10:00 | NUR ---
pt slept in this morning, she woke up, assisted opt to bsc, pt is steady on her feet this morning. She is forgetful at times and repeats herself occasionially. Currently awaiting Dr. Anderson on morning rounds.
[2020-01-19] MEDS ORDERED: CETI10TA16 PO (11:20)
--- NOTE | 2020-01-19 12:00 | NUR ---
Dr. Anderson here to see pt, PT/OT has signed off on pt. Pt is ok to be discharged today. Spoke with daughter, she will be able to pickling operator pt in approximately 1.5 hours. Pt prepared for discharge.
--- NOTE | 2020-01-19 13:20 | DS ---
DATE OF DISCHARGE: 01/19/2020 HOSPITAL COURSE: The patient is an individual, an 84-year-old female, who fell at her home, apparently not using her walker, fell on the back of her head, split her back of her scalp open and had bleeding. She was stapled together there. Chest x-ray was unremarkable. A CT scan of her head was unremarkable as well as a neck CT scan that was unremarkable as well. The patient made good progress. There were no changes in her neurological function. Her last blood pressure 145/73, respiratory rate 20, pulse 90, afebrile. Labs were stable at 139, 3.9, 22 and 1.1. The patient's blood sugar 120. The patient's white cell count 5.1, hemoglobin 11 and 35. The patient otherwise also had moderate protein malnutrition. IMPRESSION: Mild concussion secondary to fall at home, on blood thinners for a pulmonary embolus and deep vein thrombosis of the left thigh, moderate protein malnutrition, hyperglycemia. PLAN: The patient will be discharged home, followed up as an outpatient, have home health and make further evaluation on her as an outpatient as indicated above. MARTINE WOODSON MD DR: ANNIKA/rachel JOB#: [id number] / [id number]
--- NOTE | 2020-01-19 14:45 | NUR ---
reviewed discharge instructions with pt's daughter via phone due to pt having dementia. Discharge packet sent home with pt. IV dc'd without complications, coban applied. Pt was wheeled to pov upon discharge.
--- NOTE | 2020-01-19 14:58 | DISCH ---
HOME HEALTH DISCHARGE/MEDS DISCHARGE INFORMATION: Discharge Date: Jan 19, 2020 Final Diagnosis: Problems Medical Problems: (1) Closed head injury Status: Acute (2) Fall from standing Status: Acute (3) Medication induced coagulopathy Status: Acute (4) Scalp laceration Status: Acute Condition on Discharge: Stable CODE STATUS: Code Status: Full HOME HEALTH: Face to Face: I certify this patient is under my care and that I, or a nurse practitioner or physician's desk assistant working with me, had a face to face encounter that meets the physician face to face encounter requirements with this patient on 01/19/2020. Medical Condition(s): COPD, Dementia, Falls Long-Term For: Assess Cardiopulm Status, Assess & Educate Safety, Assess/Skilled Observatio, Medication Management, Wound Care Physical Therapy For: Evalulation/Treatment Occupational Therapy For: Evaluation/Treatment Homebound Status Met By: Poor coordination w/ amb., Unsteady balance w/ amb,, Frequent falls w/ injury POST DISCHARGE ORDERS: Activity Instructions for Disc: Activity as tolerated Weight Bearing Status after Di: No restrictions DIET AFTER DISCHARGE: Cardiac CERTIFICATION STATEMENT: Certification Statement: Based on the above finding, I certify that this patient is confined to the home and needs intermittent half-way care, physical therapy and/or speech therapy, or continues to need occupational therapy.~ This patient is under my care, and I have initiated the establishment of the plan of care.~ This patient will be followed by myself or a community physician who will periodically review the plan of care. DISCHARGE MEDICATIONS: Home Meds Active Scripts Cetirizine Hcl (CETIRIZINE HCL) 10 Mg Tablet, 10 MG PO PRN DAILY PRN for ALLERGIES for 30 Days, #30 TAB 2 Refills Prov:MARTINE WOODSON MD 01/19/20 Apixaban (ELIQUIS) 5 Mg Tablet, 5 MG PO DAILY for DVT/PE for 30 Days, #250 TAB 6 Refills Take 2 tablets twice a day for 7 days, then decrease to 2 tablets daily for 6 months Prov:MARTINE WOODSON MD 01/03/20 Ascorbic Acid (VITAMIN C) 500 Mg Tablet, 500 MG PO DAILY for supplement, #90 TAB Prov:MARTINE WOODSON MD 01/03/20 Ropinirole Hcl (ROPINIROLE HCL) 1 Mg Tablet, 1 MG PO HS for tremors/restlsess leg for 30 Days, #30 TAB 2 Refills Prov:MARTINE WOODSON MD 04/27/19 Reported Medications Multivitamin (MULTIVITAMINS) 1 Each Capsule, 1 CAP PO DAILY for SUPPLEMENT for 30 Days, #30 CAP 0 Refills 12/07/19 Hydrochlorothiazide (HYDROCHLOROTHIAZIDE TABLET) 12.5 Mg Tablet, 12.5 MG PO DAILY for DIURETIC, TAB 0 Refills 12/07/19 Calcium Carbonate (CALCIUM) 500 Mg Tab.chew, 1200 MG PO DAILY for vitamin sup, TAB.CHEW 04/24/19 Aspirin (ASPIRIN) 81 Mg Tab.chew, 81 MG PO QODAY for Anticoagulant, TAB 03/10/19 Tramadol Hcl (TRAMADOL HCL) 50 Mg Tablet, 50 MG PO PRN Q4HRS PRN for PAIN, TAB 03/10/19 Venlafaxine Hcl (VENLAFAXINE HCL ER) 75 Mg Cap.er.24h, 75 CAP PO DAILY for nerve pain and antidepressant 03/09/19 Potassium Chloride (KLOR-CON M20) 20 Meq Tab.er.prt, 20 MEQ PO DAILY for supplement, TAB.SR 02/12/19 Alprazolam (XANAX) 0.25 Mg Tablet, 0.25 MG PO PRN BID PRN for ANXIETY / AGITATION 02/12/19 Atenolol (ATENOLOL ) 50 Mg Tablet, 25 MG PO DAILY for ANTIHYPERTENSIVE 07/06/18 Discontinued Reported Medications Diphenhydramine Hcl (DIPHENHYDRAMINE HCL) 25 Mg Tablet, 25 MG PO DAILY for allergy relief, TAB 04/24/19 MARTINE WOODSON MD Jan 19, 2020 14:58
== END 2020-01-19 15:00 | disposition home health service (06) | DRG 89 ==
LOC: ER 19:37 → ICU 22:00
PROVIDERS: ADMIT Family Medicine; ATTEND Family Medicine
DX: S06.0X9A Concussion with loss of consciousness of unspecified duration, initial encounter (principal); D68.9 Coagulation defect, unspecified; E44.0 Moderate protein-calorie malnutrition; Z68.45 Body mass index [BMI] 70 or greater, adult; F02.80 Dementia in other diseases classified elsewhere, unspecified severity, without behavioral disturbance, psychotic disturbance, mood disturbance, and anxiety; G30.9 Alzheimer's disease, unspecified; I10 Essential (primary) hypertension; J43.9 Emphysema, unspecified; S01.01XA Laceration without foreign body of scalp, initial encounter; W01.0XXA Fall on same level from slipping, tripping and stumbling without subsequent striking against object, initial encounter; Z79.01 Long term (current) use of anticoagulants; Z80.3 Family history of malignant neoplasm of breast; Z82.49 Family history of ischemic heart disease and other diseases of the circulatory system; Z83.3 Family history of diabetes mellitus; Z86.711 Personal history of pulmonary embolism; Z86.718 Personal history of other venous thrombosis and embolism; Z86.73 Personal history of transient ischemic attack (TIA), and cerebral infarction without residual deficits; Z87.891 Personal history of nicotine dependence; Z98.51 Tubal ligation status; F32.9 Major depressive disorder, single episode, unspecified; M19.90 Unspecified osteoarthritis, unspecified site; Z88.8 Allergy status to other drugs, medicaments and biological substances; Z88.2 Allergy status to sulfonamides; Y93.89 Activity, other specified; Y92.098 Other place in other non-institutional residence as the place of occurrence of the external cause; Y99.8 Other external cause status
CPT/HCPCS: 12001; 36415; 70450; 71045; 72125; 80048; 80053; 85025; 90471; 90686; 97116; 97535; 99285-25; J7030

== ENCOUNTER 2020-02-03 10:28 | Inpatient (IN) | payer MEDICARE ==
[~2020-02-03] VITALS: Ht 147.3 cm; Wt 68.1 kg
[~2020-02-03 10:28] MED LIST changes: +CETI10TA16 PO
--- NOTE | 2020-02-03 10:31 | PHYS DOC ---
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 Had no preceding sxs. Denies any LOC. C/o bump on her head. Daughter called and reported patient has some underlying dementia. Drank half a cup of water today. Voided upon wakening. Review of Systems: Review of Systems: Denies any of the below associated symptoms: Constitutional: Denies fever or chills Eyes: Denies change in visual acuity HENT: Denies nasal congestion or sore throat Respiratory: Denies cough or shortness of breath or hemoptysis Cardiovascular: Denies chest pain or edema or syncope GI: Denies abdominal pain, nausea, vomiting, bloody stools or diarrhea : Denies dysuria or hematuria Musculoskeletal: Denies back pain or joint pain Integument: Denies rash Neurologic: Denies headache, focal weakness or sensory changes or midline neck pain Endocrine: Denies polyuria or polydipsia Lymphatic: Denies swollen glands Psychiatric: Denies depression or anxiety Heart Score: Risk Factors: Risk Factors: DM, Current or recent (<one month) smoker, HTN, HLP, family history of CAD, obesity. Risk Scores: Score 0 - 3: 2.5% MACE over next 6 weeks - Discharge Home Score 4 - 6: 20.3% MACE over next 6 weeks - Admit for Clinical Observation Score 7 - 10: 72.7% MACE over next 6 weeks - Early Invasive Strategies Allergies: Allergies: Allergies Coded Allergies Type Severity Reaction Last Updated Verified Sulfa (Sulfonamide Antibiotics) Allergy Intermediate Hives 04/23/19 Yes promethazine Allergy Intermediate Hives 04/23/19 Yes Physical Exam: PE: Constitutional: Well developed, well nourished, no acute distress, non-toxic appearance, smiling/laughing "I don't know how it happened" HENT: +right posterior parietal/occiput with hematoma, bilateral external ears normal, normal TMs, oropharynx dry, no oral exudates, nose normal. []no septal hematoma, left sided hair is wet-coffee? Eyes: PERRLA-3mm bl, EOMI, conjunctiva normal, no discharge. [] Neck: Normal range of motion, no tenderness, supple, no stridor. [] Cardiovascular:Heart rate regular rhythm, no murmur [] Lungs & Thorax: Bilateral breath sounds clear to auscultation [] Abdomen: Bowel sounds normal, soft, no tenderness, no masses, no pulsatile masses. [] no hip ttp, Skin: Warm, dry, no erythema, no rash. [] Back: No tenderness, no CVA tenderness. [] Extremities: No tenderness, no cyanosis, no clubbing, ROM intact, symmetrical LE exam, LLE with chronic wounds Neurologic: Alert and oriented X 3, normal motor function, normal sensory function, no focal deficits noted. [] Psychologic: Affect normal, judgement normal, mood normal. [] EKG: EKG: Sinus rhythm at 79 bpm, no axis deviation, normal intervals, no T wave inversions, no ST elevations or ST depressions Radiology/Procedures: Radiology/Procedures: IMAGING REPORT Signed PATIENT: SIDNEY STANTON ACCOUNT: [id number] : 1935 LOCATION: ER AGE: 84 SEX: F EXAM STATUS: REG ER ORD. PHYSICIAN: JUNE PICKENS DO REASON: fall PROCEDURE: CT HEAD AND CERVICAL SPINE WO EXAM: CT HEAD WITHOUT IV CONTRAST CLINICAL HISTORY: Fall, head injury COMPARISON: None. TECHNIQUE: Routine CT of the head without contrast. Soft tissues and bone windows were reviewed. PQRS compliance statement - One or more of the following individualized dose reduction techniques were utilized for this study: 1. Automated exposure control 2. Adjustment of the mA and/or kV according to patient size 3. Use of iterative reconstruction technique FINDINGS: There is no evidence of hemorrhage, mass or extra-axial fluid collection. Wilson-white differentiation is maintained with no evidence of edema. Subcortical, periventricular as well as deep white matter foci of hypoattenuation likely changes of chronic small vessel disease. There is no mass effect or shift of the intracranial structures. The ventricles, basilar cisterns and cortical sulci are normal in size and configuration for the patients stated age. The cerebellum and brainstem are unremarkable. The calvarium demonstrates no evidence of fracture or focal lesion. There is normal aeration of the visualized paranasal sinuses and mastoid air cells. The visualized portions of the orbits are normal. Atherosclerotic calcifications of the intracranial internal carotid and vertebral arteries is seen. IMPRESSION: 1. No evidence for acute intracranial process. 2. White matter changes, likely chronic small vessel disease. 3. Scalp hematoma right posterior parietal region. EXAM: CT CERVICAL SPINE WITHOUT IV CONTRAST CLINICAL HISTORY: Reason: fall / Spl. Instructions: / History: COMPARISON: CT chest 12/31/2019 TECHNIQUE: Helical CT of the cervical spine was performed. Axial, coronal and sagittal reformatted images were also performed. PQRS compliance statement - One or more of the following individualized dose reduction techniques were utilized for this study: 1. Automated exposure control 2. Adjustment of the mA and/or kV according to patient size 3. Use of iterative reconstruction technique FINDINGS: Diffusely decreased bone mineral density. Vertebral body heights are preserved. No definite acute fracture is seen. There is trace anterolisthesis of C5 on C6 measuring approximately 2 mm. Mild exaggeration of the normal cervical lordosis may be positional. There is mild disc height loss at multiple levels. Atlantodental degenerative changes are seen. Bilateral TMJ degenerative changes are noted. Biapical pleural/parenchymal scarring/thickening is seen. A 2.9 x 1.9 cm deep right thyroid nodule or mediastinal lymph node is again seen. IMPRESSION: 1. No acute fracture or subluxation of the cervical spine. 2. Multilevel degenerative changes as above. 3. Deep right thyroid nodule or mediastinal lymph node is partially profiled, better assessed on prior CT chest Electronically signed by: Blake Lyles MD (02/03/2020 11:17 AM) [id number] DICTATED AND SIGNED BY: BLAKE LYLES MD DATE: 02/03/201116 CC: MARTINE WOODSON MD; JUNE PICKENS DO ~ IMAGING REPORT Signed PATIENT: SIDNEY STANTON ACCOUNT: [id number] : 1935 LOCATION: ER AGE: 84 SEX: F EXAM STATUS: REG ER ORD. PHYSICIAN: JUNE PICKENS DO REASON: fall PROCEDURE: PORTABLE CHEST 1V EXAM: PELVIS, PORTABLE CHEST 1V INDICATION: Reason: fall / Spl. Instructions: / History: . TECHNIQUE: Single view COMPARISON: 01/17/2020 chest x-ray FINDINGS: The heart size is normal. The great vessels appear unremarkable. There is no hilar or mediastinal mass. The lungs are clear. There is no pleural effusion or pneumothorax. There are no significant osseous abnormalities. IMPRESSION: No active cardiopulmonary disease. PROCEDURE: PELVIS, PORTABLE CHEST 1V STUDY DATE: 02/03/2020 CLINICAL INDICATION / HISTORY: Reason: fall / Spl. Instructions: / History: . TECHNIQUE:Single AP view of the pelvis was obtained COMPARISON: 02/12/2019 pelvis x-ray. FINDINGS: The osseous structures are normally mineralized. There is normal bony alignment present with the femoral heads well-seated within the acetabuli. There is no evidence of acute fracture or dislocation identified. Bilateral hip joint space narrowing consistent with moderately advanced degenerative changes are again evident along with osteophytes around the bilateral femoral heads. No acute fracture or aggressive osseous lesions seen. IMPRESSION: Bilateral hip degenerative changes. No fracture or dislocation and no significant interval change from last pelvis x-ray. Electronically signed by: Nayely Butt MD (02/03/2020 11:40 AM) [id number] DICTATED AND SIGNED BY: NAYELY BUTT MD DATE: 02/03/20 1140 CC: MARTINE WOODSON MD; JUNE PICKENS DO ~ Course & Med Decision Making: Course & Med Decision Making Pertinent Labs and Imaging studies reviewed. (See chart for details) Concern for accidental, mechanical fall in a well-appearing 84 yo old on eliquis. CT images show right posterior occiput hematoma. EMR reviewed-CTA chest showed PE one month ago. D/w Dr. Espino who states pt fell one week, jean just removed and recommends admission for 24 hours, concern for intracranial rebleeding. U/a consistent with urinary tract infection, started on Rocephin in the ED. Will admit for further medical monitoring, accepted by Dr. Espino. I have spoken with the patient and/or caregivers. I have explained the patient's condition, diagnosis and treatment plan based on the information available to me at this time. I have answered the patient's and/or caregivers questions and answered any concerns. The patient and/or caregivers have as good an understanding of the patient's diagnosis, condition and treatment plan as can be expected at this point. The patient has been stabilized within the capability of the emergency department. The patient will be transported for further care and management or will be moved to an observation or inpatient service. I have communicated with the staff or medical practitioner taking over this patient's care. Dragon Disclaimer: [place] Disclaimer: This electronic medical record was generated, in whole or in part, using a voice recognition dictation system. Departure Departure: Impression: Primary Impression: Recurrent falls Additional Impressions: Hematoma UTI (urinary tract infection) Disposition: 09 ADMITTED INPT THIS HOSP Admitting Physician: Martine Woodson Condition: GUARDED Referrals: MARTINE WOODSON MD (PCP) JUNE PICKENS DO Feb 03, 2020 10:31
--- NOTE | 2020-02-03 11:21 | RAD ---
EXAM: CT HEAD WITHOUT IV CONTRAST CLINICAL HISTORY: Fall, head injury COMPARISON: None. TECHNIQUE: Routine CT of the head without contrast. Soft tissues and bone windows were reviewed. PQRS compliance statement - One or more of the following individualized dose reduction techniques were utilized for this study: 1. Automated exposure control 2. Adjustment of the mA and/or kV according to patient size 3. Use of iterative reconstruction technique FINDINGS: There is no evidence of hemorrhage, mass or extra-axial fluid collection. Wilson-white differentiation is maintained with no evidence of edema. Subcortical, periventricular as well as deep white matter foci of hypoattenuation likely changes of chronic small vessel disease. There is no mass effect or shift of the intracranial structures. The ventricles, basilar cisterns and cortical sulci are normal in size and configuration for the patients stated age. The cerebellum and brainstem are unremarkable. The calvarium demonstrates no evidence of fracture or focal lesion. There is normal aeration of the visualized paranasal sinuses and mastoid air cells. The visualized portions of the orbits are normal. Atherosclerotic calcifications of the intracranial internal carotid and vertebral arteries is seen. IMPRESSION: 1. No evidence for acute intracranial process. 2. White matter changes, likely chronic small vessel disease. 3. Scalp hematoma right posterior parietal region. EXAM: CT CERVICAL SPINE WITHOUT IV CONTRAST CLINICAL HISTORY: Reason: fall / Spl. Instructions: / History: COMPARISON: CT chest 12/31/2019 TECHNIQUE: Helical CT of the cervical spine was performed. Axial, coronal and sagittal reformatted images were also performed. PQRS compliance statement - One or more of the following individualized dose reduction techniques were utilized for this study: 1. Automated exposure control 2. Adjustment of the mA and/or kV according to patient size 3. Use of iterative reconstruction technique FINDINGS: Diffusely decreased bone mineral density. Vertebral body heights are preserved. No definite acute fracture is seen. There is trace anterolisthesis of C5 on C6 measuring approximately 2 mm. Mild exaggeration of the normal cervical lordosis may be positional. There is mild disc height loss at multiple levels. Atlantodental degenerative changes are seen. Bilateral TMJ degenerative changes are noted. Biapical pleural/parenchymal scarring/thickening is seen. A 2.9 x 1.9 cm deep right thyroid nodule or mediastinal lymph node is again seen. IMPRESSION: 1. No acute fracture or subluxation of the cervical spine. 2. Multilevel degenerative changes as above. 3. Deep right thyroid nodule or mediastinal lymph node is partially profiled, better assessed on prior CT chest Electronically signed by: Blake Arriaga MD (02/03/2020 11:17 AM) [id number]
--- NOTE | 2020-02-03 11:35 | EKG ---
[address] [address] Test Date: 2020-02-03 Test Time: 10:39:37 Pat Name: SIDNEY STANTON Department: Room: Gender: F Electronic Component Processor: MUMTAZ : 1935 Requested By: JUNE PICKENS Order Number: [id number] Reading MD: Measurements Intervals [place] Rate: 79 P: 37 CT: 166 QRS: 5 QRSD: 66 T: 31 QT: 358 QTc: 411 Interpretive Statements SINUS RHYTHM R-S TRANSITION ZONE IN V LEADS DISPLACED TO THE RIGHT OTHERWISE NORMAL ECG RI6.02 No previous ECG available for comparison
[2020-02-03 11:36] LABS: BASO % 0 % (0-3); EOS # 0.2 x10^3/uL (0.0-0.7); EOS % 3 % (0-3); HEMATOCRIT 37.7 % (36.0-47.0); HEMOGLOBIN 12.3 g/dL (12.0-15.5); LYMPH # 1.1 x10^3/uL (1.0-4.8); LYMPH % 20 % (24-48); MEAN CORPUSCULAR HEMOGLOBIN 31 pg (25-35); MEAN CORPUSCULAR HGB CONC 33 g/dL (31-37); MEAN CORPUSCULAR VOLUME 96 fL (79-100); MONO # 0.6 x10^3/uL (0.0-1.1); MONO % 11 % (0-9); NEUT # 3.5 x10^3uL (1.8-7.7); NEUT % 66 % (31-73); PLATELET COUNT 176 x10^3/uL (140-400); RED BLOOD COUNT 3.95 x10^6/uL (3.50-5.40); RED CELL DISTRIBUTION WIDTH 13.2 % (11.5-14.5); WHITE BLOOD COUNT 5.3 x10^3/uL (4.0-11.0)
--- NOTE | 2020-02-03 11:43 | RAD ---
EXAM: PELVIS, PORTABLE CHEST 1V INDICATION: Reason: fall / Spl. Instructions: / History: . TECHNIQUE: Single view COMPARISON: 01/17/2020 chest x-ray FINDINGS: The heart size is normal. The great vessels appear unremarkable. There is no hilar or mediastinal mass. The lungs are clear. There is no pleural effusion or pneumothorax. There are no significant osseous abnormalities. IMPRESSION: No active cardiopulmonary disease. PROCEDURE: PELVIS, PORTABLE CHEST 1V STUDY DATE: 02/03/2020 CLINICAL INDICATION / HISTORY: Reason: fall / Spl. Instructions: / History: . TECHNIQUE:Single AP view of the pelvis was obtained COMPARISON: 02/12/2019 pelvis x-ray. FINDINGS: The osseous structures are normally mineralized. There is normal bony alignment present with the femoral heads well-seated within the acetabuli. There is no evidence of acute fracture or dislocation identified. Bilateral hip joint space narrowing consistent with moderately advanced degenerative changes are again evident along with osteophytes around the bilateral femoral heads. No acute fracture or aggressive osseous lesions seen. IMPRESSION: Bilateral hip degenerative changes. No fracture or dislocation and no significant interval change from last pelvis x-ray. Electronically signed by: Andreia Butt MD (02/03/2020 11:40 AM) [id number]
[2020-02-03 11:45] LABS: CALCIUM 9.5 mg/dL (8.5-10.1); GFR 52.6; POTASSIUM 3.7 mmol/L (3.5-5.1)
[2020-02-03 11:51] LABS: ALBUMIN 3.3 g/dL (3.4-5.0); ALBUMIN/GLOBULIN RATIO 0.7 (1.0-1.7); DIRECT BILIRUBIN 0.1 mg/dL (0.0-0.2); TOTAL BILIRUBIN 0.3 mg/dL (0.2-1.0); TOTAL PROTEIN 7.9 g/dL (6.4-8.2)
[2020-02-03 12:37] LABS: BILIRUBIN,URINE NEG (NEG); CLARITY,URINE CLEAR; COLOR,URINE YELLOW; GLUCOSE,URINE NEG (NEG)
[2020-02-03 12:38] LABS: BACTERIA,URINE MOD /HPF (0-FEW); NITRITE,URINE NEG (NEG); SQUAMOUS EPITHELIAL CELL,UR FEW /LPF; UROBILINOGEN,URINE 0.2 mg/dL (0.2 mg/dL); WBC,URINE >40 /HPF (0-4)
[2020-02-03] MEDS ORDERED: ACETAMINOPHEN 325 MG TABLET PO PRN (13:30)
[2020-02-03] MEDS ORDERED: ONDANSETRON PF 4 MG/2 ML VIAL. IVP PRN (13:30)
[2020-02-03] MEDS ORDERED: cefTRIAXone SODIUM 1 GM VIAL ONE (13:37)
[2020-02-03] MEDS ORDERED: IV NORMAL SALINE 50ML 50 ML ONE (13:37)
[2020-02-03] MEDS ORDERED: traMADol 50 MG TABLET PO PRN (14:45)
[2020-02-03] MEDS ORDERED: CETIRIZINE HCL 10 MG TABLET PO PRN (14:45)
--- NOTE | 2020-02-03 15:25 | NUR ---
Maverick kendrick pleasant 84yo F, Dr. Anderson, was admitted, inpatient, tele to rm 109, for s/p fall, frequent falls, on eliquis. Admission assessment and process completed. Pt was recently here for same diagnosis. Written copies of policies and procedures were given to patient. Pt verbalized understanding and agreement of poc. Will proceed accordingly.
[2020-02-03 15:40] VITALS: BP 123/77
[2020-02-03 19:26] VITALS: BP 97/61
[2020-02-03] MEDS: APIXABAN 5 MG TABLET. PO SCH (20:04)
[2020-02-03] MEDS: rOPINIRole 1 MG TABLET. PO SCH (20:04)
[2020-02-03] MEDS: ALPRAZolam 0.25 MG TABLET PO PRN (20:04)
[2020-02-03 22:34] VITALS: BP 114/72
[2020-02-04] VITALS (7 sets, daily range): BP systolic 119–172; BP diastolic 62–87
--- NOTE | 2020-02-04 05:34 | NUR ---
Pt reported ESTRADA at beginning of shift. Given prn tylenol with improvement. Pt slept well through noc, up 3x to void using walker with standby assist. Denies any c/o this AM.
[2020-02-04 06:23] LABS: BASO % 0 % (0-3); EOS # 0.2 x10^3/uL (0.0-0.7); EOS % 4 % (0-3); HEMATOCRIT 35.9 % (36.0-47.0); HEMOGLOBIN 11.9 g/dL (12.0-15.5); LYMPH # 1.3 x10^3/uL (1.0-4.8); LYMPH % 29 % (24-48); MEAN CORPUSCULAR HEMOGLOBIN 31 pg (25-35); MEAN CORPUSCULAR HGB CONC 33 g/dL (31-37); MEAN CORPUSCULAR VOLUME 94 fL (79-100); MONO # 0.6 x10^3/uL (0.0-1.1); MONO % 13 % (0-9); NEUT # 2.5 x10^3uL (1.8-7.7); NEUT % 54 % (31-73); PLATELET COUNT 170 x10^3/uL (140-400); RED BLOOD COUNT 3.82 x10^6/uL (3.50-5.40); RED CELL DISTRIBUTION WIDTH 13.1 % (11.5-14.5); WHITE BLOOD COUNT 4.6 x10^3/uL (4.0-11.0)
[2020-02-04] MEDS: ALPRAZolam 0.25 MG TABLET PO PRN (07:42)
[2020-02-04] MEDS: ATENOLOL 25 MG TABLET PO SCH (07:42)
[2020-02-04] MEDS: hydroCHLOROthiazide 12.5 MG CAPSULE PO SCH (07:43)
[2020-02-04] MEDS: APIXABAN 5 MG TABLET. PO SCH ×2 (07:43→20:49)
[2020-02-04] MEDS: POTASSIUM CHLORIDE 20 MEQ TABLET.ER. PO SCH (07:43)
[2020-02-04] MEDS: VENLAFAXINE XR 37.5 MG CAP.ER.24H. PO SCH (07:43)
--- NOTE | 2020-02-04 10:07 | NUR ---
NURSING NOTE FREE TEXT NURSING ORDER FOR UNNA BOOT WRAP, PER PHARMACY, THEY DO NOT CARRY UNNA BOOT FOR YEARS. DR WOODSON NOTIFIED. TALAT PIKE.
[2020-02-04] MEDS ORDERED: FOSFOMYCIN TROMETHAMINE 3 GM PACKET PO ONE (14:00)
--- NOTE | 2020-02-04 16:50 | NUR ---
NURSING NOTE PT WAS IN BED THIS AM UPON ASSESSMENT AND MEDICATION ADMINISTRATION. PT IS A&O X3 UNABLE TO STATE THE DATE. PT C/O SORENESS ON POSTERIOR HEAD FROM HER FALL. PT LEG HAS ITCHING AND REDNESS, FOAM PADS COVERED. PT WAS UP TO CHAIR FOR MEALS TODAY AND WORKED WITH PT/OT. PT GIVEN MONUROL FOR UTI 1 X DOSEAGE. PT CALM AND COOPERATIVE WITH ALL CARES THUS FAR. WILL CONTINUE TO MONITOR. TALAT PIKE.
--- NOTE | 2020-02-04 19:15 | HP ---
ADMIT DATE: 02/03/2020 HISTORY OF PRESENT ILLNESS: An 84-year-old female, who came in through the Emergency Room, apparently had fallen at home. She was walking with her walker, but trying to carry a cup of coffee at the same time. The patient has a history of DVTs, PEs and is on a blood thinner. The patient fell backwards holding her cup of coffee and landed on her back and hit her head. There is a knot on the back of her head with some swelling to that area. The patient is living at home with her daughter and apparently has not been eating or drinking well. She only drank about a half a cup of water today. The patient denied any chest pain, did have a headache and the patient was admitted to the hospital for observation for possible bleed as she is on chronic anticoagulation therapy and this is the second fall in 2 weeks. PAST MEDICAL HISTORY: Cataracts, hearing problems, TIA, dementia, cardiac disorders, anticoagulant therapy for DVT, PE, emphysema, abdominal surgery, appendectomy, GERD, tubal ligation, urinary tract infection, incontinence, pain during urination, urinary urgency, arthritis, psychiatric problems, depression, clotting problems ___. IMMUNIZATION: Diphtheria and pneumococcal vaccinations are unknown. FAMILY HISTORY: Positive for diabetes, kidney disease, gallbladder disease, breast cancer in mother, coronary artery disease. ALLERGIES: SULFUR AND PROMETHAZINE. HOME MEDICATIONS: Includes Zyrtec 10, Eliquis 5, atenolol 50, aspirin 81, tramadol 50, venlafaxine, Xanax 0.25, Robinul 1 mg, calcium carbonate, potassium chloride, hydrochlorothiazide, ascorbic acid, multivitamins. SOCIAL HISTORY: No smoking, alcohol or drug use. Currently, she is a full code. The patient lives at home with her daughter. REVIEW OF SYSTEMS: The patient has a headache. She has a knot on the back of her head with increased swelling and discomfort back there. The patient is basically stable in her speech. She does talk. She does have kind of a whimsical tone and he can be very forgetful while she talks. PHYSICAL EXAMINATION: VITAL SIGNS: Blood pressure 150/99, respiratory rate 18, pulse 78, afebrile. HEENT: The patient's head was atraumatic except for this area in the back of the head where there is actually 2 swellings to the posterior crown over the occipital area. Previous laceration from a fall is healing up well. Eyes were PERRLA. Mouth and throat: Normal. NECK: Supple. LUNGS: Clear. CARDIOVASCULAR: Regular sinus rhythm, S1, S2, without murmur, rub, thrill, or extra heart sounds. ABDOMEN: Soft, protuberant. EXTREMITIES: No clubbing, cyanosis. Left lower leg is swollen. She had severe stasis dermatitis. She has a problem with scratching herself, some breaking down her skin and there is breakdown of the skin. Wound care was applied to that leg itself. Pulses noted distally. NEUROLOGIC: The patient is alert, but confused at times short-term memory deficits, able to move all extremities, but extremely weak, extremely poor balance going on here. LABORATORY DATA: The patient's labs demonstrated white count of 4.6, hemoglobin 12, 35, platelets normal. Chemistries were basically 137, 3.7, BUN and creatinine 24 and 1. The patient's urine did show greater than 40 white blood cells per high powered field. She was given a shot of Rocephin in the Emergency Room and will continue her on some oral antibiotics as the rest of her cultures come back, did show up and she just reported back grew out pseudomonas. We will have to make adjustments on that as well. IMPRESSION: Syncope at home, contusion to the head, concussion to the head, on anticoagulation therapy, dementia Alzheimer type, chronic anemia, hyperglycemia, moderate protein malnutrition. PLAN: As above. Make neurological checks on her as indicated. MARTINE WOODSON MD DR: ANNIKA/rachel JOB#: [id number] / [id number]
[2020-02-04] MEDS: rOPINIRole 1 MG TABLET. PO SCH (20:49)
--- NOTE | 2020-02-05 03:06 | NUR ---
Pt was in bed upon assessment and med administration. Pt is A&OX4. Pt ambulates with walker to restroom. Pt had no complaints of pain or shortness of air this evening. Pt is currently resting in bed will continue to monitor.
[2020-02-05 05:53] VITALS: BP 115/65
[2020-02-05] MEDS: hydroCHLOROthiazide 12.5 MG CAPSULE PO SCH (08:31)
[2020-02-05] MEDS: POTASSIUM CHLORIDE 20 MEQ TABLET.ER. PO SCH (08:31)
[2020-02-05] MEDS: ATENOLOL 25 MG TABLET PO SCH (08:31)
[2020-02-05] MEDS: APIXABAN 5 MG TABLET. PO SCH (08:31)
[2020-02-05] MEDS: VENLAFAXINE XR 37.5 MG CAP.ER.24H. PO SCH (08:31)
[2020-02-05] MEDS ORDERED: CIPROFLOXACIN HCL 250 MG TABLET PO SCH (09:00)
[2020-02-05] MEDS ORDERED: LACTOBACILLUS RHAMNOSUS GG 1 CAPSULE. PO SCH (09:00)
[2020-02-05 09:55] VITALS: BP 114/72
[2020-02-05] MEDS ORDERED: CIPR250T30 PO (10:40)
--- NOTE | 2020-02-05 11:43 | DS ---
DATE OF DISCHARGE: HOSPITAL COURSE: An 84-year-old female fell at home while using a walker with 1 hand, coffee cup in the other, hit her head. She is on a blood thinner for history of pulmonary emboli and DVT of her left leg. The patient made good progress. She did lose consciousness temporarily and there was concern that she might have a subdural bleed. She was worked up thoroughly down in the Emergency Room and of course unfortunately at that time, they did not see any type of acute intracranial process; however, the patient did lose consciousness, so she was admitted for observation. She did have some swelling to her scalp consistent with the situation with the head contusion. She also had neck and upper back pain obviously from the situation at hand. Her labs were basically normal, hemoglobin 11.9 and hematocrit 35, white count 4.6. The patient's sodium 137, potassium 3.7, blood sugar 150, BUN and creatinine 24 and 1. Albumin 3.3. The patient did have greater than 40 white blood cells per high powered field and initially she did come back with Pseudomonas aeruginosa in her urine and started on Cipro 250 one b.i.d. The patient will be discharged home. See [facility]AD and follow up as an outpatient. IMPRESSION: Concussion secondary to fall at home, contusion to the head, Pseudomonas aeruginosa, urinary tract infection, mild dementia. PLAN: As above. Continue to monitor the patient as an outpatient. Continue with her oral antibiotics for her Pseudomonas infection. Heart healthy diet, decreased activity, use walker. MARTINE WOODSON MD DR: ANNIKA/rachel JOB#: [id number] / [id number]
--- NOTE | 2020-02-05 13:37 | NUR ---
PT is able to verbalize understanding of discharge instructions. Talked with daughter on the phone about medications. Cipro Rx sent to pharmacy to take for 10 days. also specifically said to take 5 mg of Eliquis BID. PT left via [place] via private vehicle with grandson driving. Rito GILLILAND
== END 2020-02-05 13:30 | disposition home or self-care (01) | DRG 74 ==
LOC: ER 10:28 → 1 SOUTH 13:10
PROVIDERS: ADMIT Family Medicine; ATTEND Family Medicine
DX: G90.9 Disorder of the autonomic nervous system, unspecified (principal); S06.0X9A Concussion with loss of consciousness of unspecified duration, initial encounter; E44.0 Moderate protein-calorie malnutrition; N39.0 Urinary tract infection, site not specified; S00.83XA Contusion of other part of head, initial encounter; D64.9 Anemia, unspecified; E04.1 Nontoxic single thyroid nodule; F02.80 Dementia in other diseases classified elsewhere, unspecified severity, without behavioral disturbance, psychotic disturbance, mood disturbance, and anxiety; G30.9 Alzheimer's disease, unspecified; I10 Essential (primary) hypertension; I73.9 Peripheral vascular disease, unspecified; J43.9 Emphysema, unspecified; F32.9 Major depressive disorder, single episode, unspecified; B96.5 Pseudomonas (aeruginosa) (mallei) (pseudomallei) as the cause of diseases classified elsewhere; K21.9 Gastro-esophageal reflux disease without esophagitis; M19.90 Unspecified osteoarthritis, unspecified site; R29.6 Repeated falls; W18.39XA Other fall on same level, initial encounter; Z80.3 Family history of malignant neoplasm of breast; Z82.49 Family history of ischemic heart disease and other diseases of the circulatory system; Z83.3 Family history of diabetes mellitus; Z86.711 Personal history of pulmonary embolism; Z86.718 Personal history of other venous thrombosis and embolism; Z86.73 Personal history of transient ischemic attack (TIA), and cerebral infarction without residual deficits; Z90.49 Acquired absence of other specified parts of digestive tract; Y93.89 Activity, other specified; Y92.89 Other specified places as the place of occurrence of the external cause; Y99.8 Other external cause status; Z68.31 Body mass index [BMI] 31.0-31.9, adult
CPT/HCPCS: 36415; 70450; 71045; 72125; 72170; 80053; 80076; 81001; 82550; 84484; 85025; 85610; 85730; 87077; 87086; 87186; 93005; 96365; J0696; 97116; 99285-25

== ENCOUNTER → 2020-07-13 | Outpatient (CLI) | payer MEDICARE ==
[~2020-07-13] MED LIST changes: +LORA-52 PO; -LORA10TA55 PO
--- NOTE | 2020-07-13 17:17 | RAD ---
Left hip 2 views. HISTORY: Fall, left hip pain 2 views were taken of the left hip. There is marked osteoarthritis at the hip with the joint space na rrowing and prominent hypertrophic spurring. There is also osteoarthritis of the right hip. There is no acute hip fracture. There is degenerative disc disease in the lower lumbar spine. Definite pelvic fracture is not identified. IMPRESSION: 1. Arthritis in both hips. 2. No acute left hip fracture. Electronically signed by: Best Mullins MD (07/13/2020 5:15 PM) [facility]
== END ==
LOC: RAD 16:59
PROVIDERS: ATTEND Family Medicine
DX: M16.0 Bilateral primary osteoarthritis of hip (principal); M51.36 Other intervertebral disc degeneration, lumbar region
CPT/HCPCS: 73502

== ENCOUNTER 2020-07-19 15:04 | Emergency (ER) | payer MEDICARE ==
[~2020-07-19] VITALS: Ht 147.3 cm; Wt 68.1 kg
[2020-07-19 15:16] VITALS: BP 150/68
--- NOTE | 2020-07-19 15:43 | PHYS DOC ---
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 Patient states she fell a week ago and was seen by the PCP, she states she had negative x-rays was noted to have a UTI and is currently on antibiotics. She states she has continued to have bruising to the left upper extremity as well as some knots and is worried t hey could be blood clots. Patient denies any chest pain or shortness of breath. 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) Review of Systems Review of Systems Constitutional: Denies fever or chills [] Eyes: Denies change in visual acuity, redness, or eye pain [] HENT: Denies nasal congestion or sore throat [] Respiratory: Denies cough or shortness of breath [] Cardiovascular: No additional information not addressed in HPI [] GI: Denies abdominal pain, nausea, vomiting, bloody stools or diarrhea [] : Denies dysuria or hematuria [] Musculoskeletal: Denies back pain or joint pain [] Integument: Concern for blood clots in the left upper extremity, knots in the left upper extremity Neurologic: Denies headache, focal weakness or sensory changes [] All other systems were reviewed and found to be within normal limits, except as documented in this note. 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) Allergies Allergies Allergies Coded Allergies Type Severity Reaction Last Updated Verified Sulfa (Sulfonamide Antibiotics) Allergy Intermediate Hives 02/03/20 Yes promethazine Allergy Intermediate Hives 02/03/20 Yes 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) Physical Exam Physical Exam Constitutional: Well developed, well nourished, no acute distress, non-toxic appearance. [] HENT: Normocephalic, bilateral external ears normal, oropharynx moist, no oral exudates, nose normal. [] Eyes: PERRLA, EOMI, conjunctiva normal, no discharge. [] Neck: Normal range of motion, no tenderness, supple, no stridor. [] Cardiovascular:Heart rate regular rhythm, no murmur [] Lungs & Thorax: Bilateral breath sounds clear to auscultation [] Abdomen: Bowel sounds normal, soft, no tenderness, no masses, no pulsatile masses. [] Skin: Left ventral as well as medial aspect of the forearm with bruising. There are 2-3 palpable tiny knots on the left ventral forearm, this knots are not warm, not tender to touch. Full range of motion to the left upper extremity, adequate radial, medial, ulnar sensation to the left upper extremity. +2 left radial pulse. Cap refill less than 2 seconds in left fingers. Back: No tenderness, no CVA tenderness. [] Extremities: No tenderness, no cyanosis, no clubbing, ROM intact, no edema. [] Neurologic: Alert and oriented X 3, normal motor function, normal sensory function, no focal deficits noted. [] Psychologic: Affect normal, judgement normal, mood normal. [] 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) Current Patient Data Vital Signs Vital Signs Date Time Temp Pulse Resp B/P (MAP) Pulse Ox O2 Delivery O2 Flow Rate FiO2 07/19/20 15:16 97.8 64 16 150/68 (95) 97 Room Air 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) EKG EKG [] 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) Radiology/Procedures Radiology/Procedures []PROCEDURE: VENOUS UPPER EXTREMITY LEFT INDICATION: Reason: bruising on LUE / Spl. Instructions: / History: COMPARISON: None. TECHNIQUE: Grayscale, color and doppler ultrasound images were obtained of the left upper extremity venous vasculature. No thrombus identified in the internal jugular, subclavian, axillary, brachial, basilic, cephalic, radial or ulnar veins. IMPRESSION: 1. No thrombus identified in deep venous system of left upper extremity. 2. There is a couple of anechoic foci in the subcutaneous soft tissues of the forearm with these measuring up to about 4 x 3 mm. Nonspecific in nature with possible cause including small subcutaneous cyst formation or small fluid collection from causes such as seroma or small hematoma in evolution. Electronically signed by: Shirley Horta MD (07/19/2020 4:28 PM) [id number] DICTATED AND SIGNED BY: SHIRLEY HORTA MD DATE: 07/19/20 1622 CC: MARTINE WOODSON MD; MAURILIO JOY APRN ~MTH0 0 (MAURILIO JOY APRN) Heart Score C/O Chest Pain: N/A Risk Factors: Risk Factors: DM, Current or recent (<one month) smoker, HTN, HLP, family history of CAD, obesity. Risk Scores: Risk Factors: DM, Current or recent (<one month) smoker, HTN, HLP, family history of CAD, obesity. (MAURILIO JOY APRN) Course & Med Decision Making Course & Med Decision Making Pertinent Labs and Imaging studies reviewed. (See chart for details) This is a 84-year-old female patient presented to the ED today concerned she has a blood clot to the left upper extremity after falling a week ago. Patient has history of DVTs and is currently on Eliquis. She was already evaluated by the PCP for the fall and had negative x-rays. (MAURILIO JOY APRN) Dragon Disclaimer Dragon Disclaimer This electronic medical record was generated, in whole or in part, using a voice recognition dictation system. (MAURILIO JOY APRN) Departure Departure: Impression: Primary Impression: Recurrent falls Additional Impression: Traumatic ecchymosis of left forearm Disposition: 01 DC HOME SELF CARE/HOMELESS Condition: STABLE Referrals: MARTINE WOODSON MD (PCP) Follow-up in 1 to 2 weeks Patient Instructions: Contusion, [id number] Additional Instructions: You were evaluated in the emergency room, a venous Doppler/ultrasound was done to your left upper extremity which is negative for any fractures blood clot. Please follow-up with your primary care, continue taking your Eliquis Attending Signature Attending Signature I have reviewed the PA/SHORE WORKER's note and plan of care. I was available for consultation as needed during the patient's visit in the emergency department. I agree with the clinical impression, plan, and disposition. (JEIMY MERA DO) Problem Qualifiers Additional Impression: Traumatic ecchymosis of left forearm Encounter type: initial encounter Qualified Codes: S50.12XA - Contusion of left forearm, initial encounter MAURILIO JOY APRN Jul 19, 2020 15:43 JEIMY MERA DO Jul 20, 2020 00:51
--- NOTE | 2020-07-19 16:30 | RAD ---
INDICATION: Reason: bruising on LUE / Spl. Instructions: / History: COMPARISON: None. TECHNIQUE: Grayscale, color and doppler ultrasound images were obtained of the left upper extremity v enous vasculature. No thrombus identified in the internal jugular, subclavian, axillary, brachial, basilic, cephalic, r adial or ulnar veins. IMPRESSION: 1. No thrombus identified in deep venous system of left upper extremity. 2. There is a couple of anechoic foci in the subcutaneous soft tissues of the forearm with these raghu uring up to about 4 x 3 mm. Nonspecific in nature with possible cause including small subcutaneous cy st formation or small fluid collection from causes such as seroma or small hematoma in evolution. Electronically signed by: Prem Upton MD (07/19/2020 4:28 PM) [id number]
== END 2020-07-19 16:47 | disposition home or self-care (01) ==
LOC: ER 15:04
DX: S50.12XA Contusion of left forearm, initial encounter (principal); R29.6 Repeated falls; J44.9 Chronic obstructive pulmonary disease, unspecified; F03.90 Unspecified dementia, unspecified severity, without behavioral disturbance, psychotic disturbance, mood disturbance, and anxiety; I10 Essential (primary) hypertension; Z86.73 Personal history of transient ischemic attack (TIA), and cerebral infarction without residual deficits; Z86.718 Personal history of other venous thrombosis and embolism; Z79.01 Long term (current) use of anticoagulants; Z88.2 Allergy status to sulfonamides; Z88.8 Allergy status to other drugs, medicaments and biological substances; W18.39XA Other fall on same level, initial encounter; Y93.89 Activity, other specified; Y92.89 Other specified places as the place of occurrence of the external cause; Y99.8 Other external cause status
CPT/HCPCS: 93971; 99284

== ENCOUNTER 2021-02-24 15:04 | Emergency (ER) | payer MEDICARE ==
[~2021-02-24] VITALS: Ht 147.3 cm; Wt 68.1 kg
[~2021-02-24 15:04] MED LIST changes: +POTA-121 PO
[2021-02-24 15:22] VITALS: BP 143/55
--- NOTE | 2021-02-24 15:30 | PHYS DOC ---
Past History Past Medical History: COPD, Dementia, DVT, Hypertension, TIA, Other Additional Past Medical Histor: PE Past Surgical History: Appendectomy, Other Additional Past Surgical Histo: cataract surgery Smoking: Non-smoker Alcohol Use: None Drug Use: None Adult General Chief Complaint Chief Complaint: MECHANICAL FALL HPI HPI Patient is a 85-year-old female presenting for evaluation after fall. Onset was yesterday. Patient reports no prodromal symptoms but had a witnessed fall in which she fell to her right hitting her right rib cage and posterior head. She reports focal pain to posterior head and right rib cage which has been ongoing since symptom onset. She did not seek medical care immediately after this fall, no loss of consciousness reported. Nonetheless, ongoing symptoms concerned family lives with patient especially since patient takes Eliquis blood thinner. Patient arrived via POV, denies any changes in motor or sensory or neuro function Review of Systems Review of Systems Fourteen body systems of review of systems have been reviewed. See HPI for pertinent positives and negative responses, other krishnan all other systems are negative, non-pertinent or non-contributory Allergies Allergies Allergies Coded Allergies Type Severity Reaction Last Updated Verified Sulfa (Sulfonamide Antibiotics) Allergy Intermediate Hives 02/03/20 Yes promethazine Allergy Intermediate Hives 02/03/20 Yes Physical Exam Physical Exam Constitutional: Well developed, well nourished, no acute distress, non-toxic appearance. HENT: Normocephalic, atraumatic, bilateral external ears normal, oropharynx moist, no oral exudates, nose normal. Eyes: PERRLA, EOMI, conjunctiva normal, no discharge. Neck: Normal range of motion, tenderness present globally along cervical spine with no obvious palpable and/or visible abnormalities, supple, no stridor. Cardiovascular: Heart rate regular, sinus rhythm, no murmurs rubs or gallops. Tenderness to palpation along right side of the leg cage without any visual or palpable abnormalities Lungs & Thorax: Bilateral breath sounds clear to auscultation Abdomen: Bowel sounds normal, soft, no tenderness, no masses, no pulsatile masses. Nonsurgical abdomen, no peritoneal signs Skin: Warm, dry, no erythema, no rash. Back: No tenderness, no CVA tenderness. Extremities: No tenderness, no cyanosis, no clubbing, ROM intact, no edema. Neurologic: Alert and oriented X 3, grossly normal motor & sensory function, no focal deficits noted. Psychologic: Affect normal, judgement normal, mood normal. Current Patient Data Vital Signs Vital Signs Date Time Temp Pulse Resp B/P (MAP) Pulse Ox O2 Delivery O2 Flow Rate FiO2 02/24/21 15:22 81 18 143/55 (84) 95 EKG EKG [] Radiology/Procedures Radiology/Procedures PA chest x-ray and 4 oblique right rib x-rays HISTORY: Right chest wall pain. FINDINGS: Heart size normal. Mild tortuosity and calcified plaque aortic arch. No pneumothorax. No pulmonary opacities. No effusions. There is mild chronic appearing right lateral fifth rib bowing deformity. Separately at the right lateral ninth and eighth ribs there are mild bowing deformities without discrete lucent fracture cleft this could be chronic. IMPRESSION: No acute cardiopulmonary process. Age-indeterminate mild bowing deformities of the right lateral eighth and ninth ribs this could be acute or chronic nonspecific rib fractures. There is a separate chronic appearing bowing deformity of the right lateral fifth rib. Electronically signed by: Roosevelt Olson MD (02/24/2021 4:07 PM) [id number] //////////////////////////// Exam: CT head and cervical spine INDICATION: Fall to back of head on healed with TECHNIQUE: Sequential axial images through the head and cervical spine were obtained without the administration of IV contrast. Exposure: One or more of the following in the visualized dose reduction techniques were utilized for this examination: 1. Automated exposure control 2. Adjustment of the MA and/or KV according to patient size 3. Use of iterative of reconstructive technique Comparisons: 12/03/2020 FINDINGS: Head: No focal parenchymal lesion or hemorrhage is identified. There is no midline shift or sulcal effacement. Patchy hypodensity in the periventricular white matter No acute vascular territory infarction is identified. Lantig[place]-white distinction is preserved. The ventricular system is within normal limits without compression hydrocephalus. The basal cisterns are well maintained. Mild extra cranial soft tissue scalp contusion/hematoma overlying the occipital region. The visualized portions of the paranasal sinuses and mastoid air cells are well-pneumatized. No acute fractures. Cervical spine: Vertebral body heights and alignment are well-maintained. Fracture to the cervical spine is is not identified. Mild multilevel spondylotic change in cervical spine with degenerative disease greatest at C5-C6. Bilateral facet arthropathy is noted throughout cervical spine. Visualized paraspinal soft tissues are unremarkable. IMPRESSION: 1. Mild extra cranial soft tissue scalp contusion/hematoma overlying the right occipital region without underlying osseous or intracranial abnormality. 2. Negative CT C-spine for acute traumatic injury. Electronically signed by: Jackie Estrada MD (02/24/2021 4:09 PM) [facility] Heart Score C/O Chest Pain: No Risk Factors: Risk Factors: DM, Current or recent (<one month) smoker, HTN, HLP, family history of CAD, obesity. Risk Scores: Risk Factors: DM, Current or recent (<one month) smoker, HTN, HLP, family history of CAD, obesity. Course & Med Decision Making Course & Med Decision Making ABCs unremarkable HPI physical exam and comprehensive ER work-up nonconcerning for any emergent or surgical issues Discussed most likely diagnosis of contusion status post low risk fall in a high risk patient Continued supportive care practices advised with close outpatient follow-up with PCP recommended Strict return precautions discussed and understood by patient, all questions and concerns addressed prior to ER departure Dragon Disclaimer Dragon Disclaimer This electronic medical record was generated, in whole or in part, using a voice recognition dictation system. Departure Departure: Impression: Primary Impression: Fall Additional Impressions: Contusion of head Contusion, chest wall Disposition: 01 HOME / SELF CARE / HOMELESS Condition: STABLE Referrals: MARTINE WOODSON MD (PCP) Additional Instructions: As discussed prior to ER departure, you were seen for a fall. Your comprehensive ER work-up that included CT imaging of head and neck and chest x-ray of the chest and ribs were nonconcerning for any emergent or surgical issues. I am glad you came in for evaluation given your history of Eliquis use which predisposes you to brain bleeds and other concerning problems status post fall. Please con tinue to take Tylenol as needed for pain and follow-up with outpatient primary care physician for future care. If any concerning signs or symptoms present prior to outpatient follow-up please do not hesitate to come back for repeat evaluation. It was a pleasure to take care of you and I wish you the best going forward Problem Qualifiers INGRIS AREVALO DO Feb 24, 2021 15:30
--- NOTE | 2021-02-24 16:09 | RAD ---
PA chest x-ray and 4 oblique right rib x-rays HISTORY: Right chest wall pain. FINDINGS: Heart size normal. Mild tortuosity and calcified plaque aortic arch. No pneumothorax. No pu lmonary opacities. No effusions. There is mild chronic appearing right lateral fifth rib bowing defor mity. Separately at the right lateral ninth and eighth ribs there are mild bowing deformities without discrete lucent fracture cleft this could be chronic. IMPRESSION: No acute cardiopulmonary process. Age-indeterminate mild bowing deformities of the right lateral eighth and ninth ribs this could be acute or chronic nonspecific rib fractures. There is a se parate chronic appearing bowing deformity of the right lateral fifth rib. Electronically signed by: Roosevelt Olson MD (02/24/2021 4:07 PM) [id number]
--- NOTE | 2021-02-24 16:11 | RAD ---
Exam: CT head and cervical spine INDICATION: Fall to back of head on healed with TECHNIQUE: Sequential axial images through the head and cervical spine were obtained without the admi nistration of IV contrast. Exposure: One or more of the following in the visualized dose reduction techniques were utilized for this examination: 1. Automated exposure control 2. Adjustment of the MA and/or KV according to patient size 3. Use of iterative of reconstructive technique Comparisons: 12/03/2020 FINDINGS: Head: No focal parenchymal lesion or hemorrhage is identified. There is no midline shift or sulcal effaceme nt. Patchy hypodensity in the periventricular white matter No acute vascular territory infarction is iden tified. Lantigua-white distinction is preserved. The ventricular system is within normal limits without compression hydrocephalus. The basal cisterns are well maintained. Mild extra cranial soft tissue scalp contusion/hematoma overlying the occipital region. The visualize d portions of the paranasal sinuses and mastoid air cells are well-pneumatized. No acute fractures. Cervical spine: Vertebral body heights and alignment are well-maintained. Fracture to the cervical spine is is not identified. Mild multilevel spondylotic change in cervical spine with degenerative disease greatest at C5-C6. Kameron ateral facet arthropathy is noted throughout cervical spine. Visualized paraspinal soft tissues are unremarkable. IMPRESSION: 1. Mild extra cranial soft tissue scalp contusion/hematoma overlying the right occipital region with out underlying osseous or intracranial abnormality. 2. Negative CT C-spine for acute traumatic injury. Electronically signed by: Jackie Estrada MD (02/24/2021 4:09 PM) [facility]
== END 2021-02-24 17:02 | disposition home or self-care (01) ==
LOC: ER 15:04
DX: S00.93XA Contusion of unspecified part of head, initial encounter (principal); S20.211A Contusion of right front wall of thorax, initial encounter; J44.9 Chronic obstructive pulmonary disease, unspecified; F03.90 Unspecified dementia, unspecified severity, without behavioral disturbance, psychotic disturbance, mood disturbance, and anxiety; I10 Essential (primary) hypertension; Z86.718 Personal history of other venous thrombosis and embolism; Z86.73 Personal history of transient ischemic attack (TIA), and cerebral infarction without residual deficits; Z88.2 Allergy status to sulfonamides; Z88.8 Allergy status to other drugs, medicaments and biological substances; W18.39XA Other fall on same level, initial encounter; Y93.89 Activity, other specified; Y92.89 Other specified places as the place of occurrence of the external cause; Y99.8 Other external cause status
CPT/HCPCS: 70450; 71101; 72125; 99284